=== PATIENT | female | born 1975 ===

== ENCOUNTER 2020-08-05 10:11 | Outpatient (REF) | payer OTHER, SELFPAY | END 2020-08-05 10:12 | disposition home or self-care (01) | LOC: HO.MDS 10:11 | PROVIDERS: Visit Provider Internal Medicine Pulmonary Disease | DX: J45.50 Severe persistent asthma, uncomplicated (principal) | CPT/HCPCS: 96372; J0517 ==

== ENCOUNTER → 2020-08-30 10:07 | Outpatient (BNVA) | payer OTHER, SELFPAY | PROVIDERS: Visit Provider Internal Medicine Pulmonary Disease | DX: Z76.89 Persons encountering health services in other specified circumstances (principal) ==

== ENCOUNTER 2020-09-30 14:12 | Outpatient (REF) | payer OTHER, SELFPAY | END 2020-09-30 14:13 | disposition home or self-care (01) | LOC: HO.MDS 14:12 | PROVIDERS: Visit Provider Internal Medicine Pulmonary Disease | DX: J45.50 Severe persistent asthma, uncomplicated (principal) | CPT/HCPCS: 96372; J0517 ==

== ENCOUNTER 2020-10-07 12:45 | Outpatient (REF) | payer OTHER, SELFPAY ==
--- NOTE | 2020-10-07 12:50 | MM_ITS ---
EXAMINATION: MM SCREENING DIGITAL BREAST TOMOSYNTHESIS, BILATERAL CLINICAL INFORMATION: Screening. Asymptomatic. The lifetime risk of breast cancer based on the Tyrer-Cuzick Model is 8%. COMPARISON: Mammography: 10/02/2019, 09/26/2018; outside exam 09/06/2018 and 09/04/2017 ([place]). TECHNIQUE: Digital breast tomosynthesis is performed in both the craniocaudal and mediolateral oblique views along with computer-aided detection (CAD). Synthesized 2D images are generated from the tomosynthesis. FINDINGS: There are scattered areas of fibroglandular density (ACR BI-RADS breast composition Category b). There are no significant masses, abnormal calcifications, or other abnormalities. Parenchymal pattern is similar to prior studies. No developing density. No significant changes. MM/MM tomosynthesis screening BI IMPRESSION: No mammographic evidence of malignancy. ASSESSMENT: BI-RADS 1: Negative RECOMMENDATION: Routine annual mammography screening. This patient's information was entered into a reminder system with a target due date for their next mammogram.
== END 2020-10-07 12:46 | disposition home or self-care (01) ==
LOC: HO.MAMMO 12:45
PROVIDERS: PCP Internal Medicine; Visit Provider Internal Medicine
DX: Z12.31 Encounter for screening mammogram for malignant neoplasm of breast (principal)
CPT/HCPCS: 77063; 77067

== ENCOUNTER → 2020-11-09 14:13 | Outpatient (BNVA) | payer OTHER, SELFPAY | PROVIDERS: Visit Provider Advanced Practice Midwife ==

== ENCOUNTER 2020-11-25 10:00 | Outpatient (REF) | payer OTHER, SELFPAY | END 2020-11-25 10:01 | disposition home or self-care (01) | LOC: HO.MDS 10:00 | PROVIDERS: Visit Provider Internal Medicine Pulmonary Disease | DX: J45.50 Severe persistent asthma, uncomplicated (principal) | CPT/HCPCS: 96372; J0517 ==

== ENCOUNTER 2021-01-21 08:16 | Outpatient (REF) | payer OTHER, SELFPAY | END 2021-01-21 08:17 | disposition home or self-care (01) | LOC: HO.MDS 08:16 | PROVIDERS: Visit Provider Internal Medicine Pulmonary Disease | DX: J45.50 Severe persistent asthma, uncomplicated (principal) | CPT/HCPCS: 96372; J0517 ==

== ENCOUNTER → 2021-01-27 10:31 | Outpatient (BNVA) | payer OTHER, SELFPAY | PROVIDERS: PCP Internal Medicine; Visit Provider Internal Medicine Pulmonary Disease | DX: J45.50 Severe persistent asthma, uncomplicated (principal); Z91.09 Other allergy status, other than to drugs and biological substances | CPT/HCPCS: 99212 ==

== ENCOUNTER 2021-03-16 08:12 | Outpatient (REF) | payer OTHER, SELFPAY | END 2021-03-16 08:13 | disposition home or self-care (01) | LOC: HO.MDS 08:12 | PROVIDERS: PCP Internal Medicine; Visit Provider Internal Medicine Pulmonary Disease | DX: J45.909 Unspecified asthma, uncomplicated (principal) | CPT/HCPCS: 96372; J2357 ==

== ENCOUNTER 2021-03-30 10:21 | Outpatient (REF) | payer OTHER, SELFPAY | END 2021-03-30 10:22 | disposition home or self-care (01) | LOC: HO.MDS 10:21 | PROVIDERS: PCP Internal Medicine; Visit Provider Internal Medicine Pulmonary Disease | DX: J45.50 Severe persistent asthma, uncomplicated (principal) | CPT/HCPCS: 96372; J2357 ==

== ENCOUNTER 2021-04-13 10:40 | Outpatient (REF) | payer OTHER, SELFPAY | END 2021-04-13 10:41 | disposition home or self-care (01) | LOC: HO.MDS 10:40 | PROVIDERS: PCP Internal Medicine; Visit Provider Internal Medicine Pulmonary Disease | DX: J45.50 Severe persistent asthma, uncomplicated (principal) | CPT/HCPCS: 96372; J2357 ==

== ENCOUNTER 2021-04-28 11:12 | Outpatient (REF) | payer OTHER, SELFPAY | END 2021-04-28 11:13 | disposition home or self-care (01) | LOC: HO.MDS 11:12 | PROVIDERS: PCP Internal Medicine; Visit Provider Internal Medicine Pulmonary Disease | DX: J45.50 Severe persistent asthma, uncomplicated (principal) | CPT/HCPCS: 96372; J2357 ==

== ENCOUNTER → 2021-05-06 10:34 | Outpatient (BNVA) | payer OTHER, SELFPAY | PROVIDERS: PCP Internal Medicine; Visit Provider Internal Medicine Pulmonary Disease | DX: J45.50 Severe persistent asthma, uncomplicated (principal); Z91.09 Other allergy status, other than to drugs and biological substances | CPT/HCPCS: 99212 ==

== ENCOUNTER 2021-05-18 11:11 | Outpatient (REF) | payer OTHER, SELFPAY | END 2021-05-18 11:12 | disposition home or self-care (01) | LOC: HO.MDS 11:11 | PROVIDERS: PCP Internal Medicine; Visit Provider Internal Medicine Pulmonary Disease | DX: J45.50 Severe persistent asthma, uncomplicated (principal) | CPT/HCPCS: 96372; J2357 ==

== ENCOUNTER 2021-06-01 09:40 | Outpatient (REF) | payer OTHER, SELFPAY | END 2021-06-01 09:41 | disposition home or self-care (01) | LOC: HO.MDS 09:40 | PROVIDERS: PCP Internal Medicine; Visit Provider Internal Medicine Pulmonary Disease | DX: J45.50 Severe persistent asthma, uncomplicated (principal) | CPT/HCPCS: 96372; J2357 ==

== ENCOUNTER 2021-06-16 09:43 | Outpatient (REF) | payer OTHER, SELFPAY | END 2021-06-16 09:44 | disposition home or self-care (01) | LOC: HO.MDS 09:43 | PROVIDERS: PCP Internal Medicine; Visit Provider Internal Medicine Pulmonary Disease | DX: J45.50 Severe persistent asthma, uncomplicated (principal) | CPT/HCPCS: 96372; J2357 ==

== ENCOUNTER 2021-06-30 09:34 | Outpatient (REF) | payer OTHER, SELFPAY | END 2021-06-30 09:35 | disposition home or self-care (01) | LOC: HO.MDS 09:34 | PROVIDERS: PCP Internal Medicine; Visit Provider Internal Medicine Pulmonary Disease | DX: J45.50 Severe persistent asthma, uncomplicated (principal) | CPT/HCPCS: 96372; J2357 ==

== ENCOUNTER 2021-07-14 09:44 | Outpatient (REF) | payer OTHER, SELFPAY | END 2021-07-14 09:45 | disposition home or self-care (01) | LOC: HO.MDS 09:44 | PROVIDERS: Visit Provider Internal Medicine Pulmonary Disease | DX: J45.50 Severe persistent asthma, uncomplicated (principal) | CPT/HCPCS: 96372; J2357 ==

== ENCOUNTER 2021-07-28 10:02 | Outpatient (REF) | payer OTHER, SELFPAY | END 2021-07-28 10:03 | disposition home or self-care (01) | LOC: HO.MDS 10:02 | PROVIDERS: PCP Internal Medicine; Visit Provider Internal Medicine Pulmonary Disease | DX: J45.50 Severe persistent asthma, uncomplicated (principal) | CPT/HCPCS: 96372; J2357 ==

== ENCOUNTER → 2021-08-04 09:00 | Outpatient (BNVA) | payer OTHER, SELFPAY | PROVIDERS: PCP Internal Medicine; Visit Provider Internal Medicine Pulmonary Disease | DX: J45.50 Severe persistent asthma, uncomplicated (principal); Z91.09 Other allergy status, other than to drugs and biological substances | CPT/HCPCS: 99212 ==

== ENCOUNTER 2021-08-11 09:59 | Outpatient (REF) | payer OTHER, SELFPAY | END 2021-08-11 10:00 | disposition home or self-care (01) | LOC: HO.MDS 09:59 | PROVIDERS: PCP Internal Medicine; Visit Provider Internal Medicine Pulmonary Disease | DX: J45.50 Severe persistent asthma, uncomplicated (principal) | CPT/HCPCS: 96372; J2357 ==

== ENCOUNTER 2021-08-25 10:06 | Outpatient (REF) | payer OTHER, SELFPAY | END 2021-08-25 10:07 | disposition home or self-care (01) | LOC: HO.MDS 10:06 | PROVIDERS: PCP Internal Medicine; Visit Provider Internal Medicine Pulmonary Disease | DX: J45.50 Severe persistent asthma, uncomplicated (principal) | CPT/HCPCS: 96372; J2357 ==

== ENCOUNTER → 2021-09-07 09:19 | Outpatient (BNVA) | payer OTHER, SELFPAY | PROVIDERS: PCP Internal Medicine; Visit Provider Internal Medicine Pulmonary Disease | DX: J45.50 Severe persistent asthma, uncomplicated (principal); Z91.09 Other allergy status, other than to drugs and biological substances | CPT/HCPCS: 99212 ==

== ENCOUNTER 2021-09-08 10:15 | Outpatient (REF) | payer OTHER, SELFPAY | END 2021-09-08 10:16 | disposition home or self-care (01) | LOC: HO.MDS 10:15 | PROVIDERS: Visit Provider Internal Medicine Pulmonary Disease | DX: J45.50 Severe persistent asthma, uncomplicated (principal) | CPT/HCPCS: 96372; J2357 ==

== ENCOUNTER 2021-09-22 09:42 | Outpatient (REF) | payer OTHER, SELFPAY | END 2021-09-22 09:43 | disposition home or self-care (01) | LOC: HO.MDS 09:42 | PROVIDERS: PCP Internal Medicine; Visit Provider Internal Medicine Pulmonary Disease | DX: J45.50 Severe persistent asthma, uncomplicated (principal) | CPT/HCPCS: 96372; J2357 ==

== ENCOUNTER 2021-10-06 09:09 | Outpatient (REF) | payer OTHER, SELFPAY | END 2021-10-06 09:10 | disposition home or self-care (01) | LOC: HO.MDS 09:09 | PROVIDERS: PCP Internal Medicine; Visit Provider Internal Medicine Pulmonary Disease | DX: J45.50 Severe persistent asthma, uncomplicated (principal) | CPT/HCPCS: 96372; J2357 ==

== ENCOUNTER 2021-10-20 09:44 | Outpatient (REF) | payer OTHER, SELFPAY | END 2021-10-20 09:45 | disposition home or self-care (01) | LOC: HO.MDS 09:44 | PROVIDERS: PCP Internal Medicine; Visit Provider Internal Medicine Pulmonary Disease | DX: J45.50 Severe persistent asthma, uncomplicated (principal) | CPT/HCPCS: 96372; J2357 ==

== ENCOUNTER 2021-10-27 11:45 | Outpatient (REF) | payer OTHER, SELFPAY ==
[2021-11-01 16:07] LABS: CT PCR NOT DETECTED (Not Detect.)
[2021-11-01 16:08] LABS: NG PCR NOT DETECTED (Not Detect.)
[2021-11-04 04:22] LABS: HPV mRNA E6/E7 rflx Not Detected (Not Detected)
== END 2021-10-27 11:46 | disposition home or self-care (01) ==
LOC: HO.LAB 11:45
PROVIDERS: Visit Provider Advanced Practice Midwife
DX: Z12.4 Encounter for screening for malignant neoplasm of cervix (principal); Z11.51 Encounter for screening for human papillomavirus (HPV); E66.9 Obesity, unspecified; R10.2 Pelvic and perineal pain; F17.200 Nicotine dependence, unspecified, uncomplicated; Z78.0 Asymptomatic menopausal state
CPT/HCPCS: 87491; 87591; 87624; 88142

== ENCOUNTER 2021-11-01 11:42 | Outpatient (REF) | payer OTHER, SELFPAY ==
--- NOTE | ~2021-11-01 | MM_ITS ---
EXAMINATION: MM SCREENING DIGITAL BREAST TOMOSYNTHESIS, BILATERAL CLINICAL INFORMATION: Screening. Asymptomatic. The lifetime risk of breast cancer based on the Tyrer-Cuzick Model is 9%. COMPARISON: Mammography: 10/07/2020, 10/02/2019, outside exams 09/26/2018, 09/06/2018, 09/04/2017 ([place]). TECHNIQUE: Digital breast tomosynthesis is performed in both the craniocaudal and mediolateral oblique views along with computer-aided detection (CAD). Synthesized 2D images are generated from the tomosynthesis. FINDINGS: There are scattered areas of fibroglandular density (ACR BI-RADS breast composition Category b). Parenchymal pattern is similar to prior studies. There is no architectural change or significant mass or developing density. Grouped dermal calcifications are again noted posterior 6:00 left breast. The axilla are unremarkable. The skin contours are smooth. MM/MM tomosynthesis screening BI IMPRESSION: No significant changes from prior exams. ASSESSMENT: BI-RADS 2: Benign RECOMMENDATION: Routine annual mammography screening. This patient's information was entered into a reminder system with a target due date for their next mammogram.
== END 2021-11-01 11:43 | disposition home or self-care (01) ==
LOC: HO.MAMMO 11:42
PROVIDERS: PCP Internal Medicine; Visit Provider Internal Medicine
DX: Z12.31 Encounter for screening mammogram for malignant neoplasm of breast (principal)
CPT/HCPCS: 77063; 77067; 87480; 87510; 87660

== ENCOUNTER 2021-11-04 10:24 | Outpatient (REF) | payer OTHER, SELFPAY | END 2021-11-04 10:25 | disposition home or self-care (01) | LOC: HO.MDS 10:24 | PROVIDERS: Visit Provider Internal Medicine Pulmonary Disease | DX: J45.50 Severe persistent asthma, uncomplicated (principal) | CPT/HCPCS: 96372; J2357 ==

== ENCOUNTER 2021-11-24 09:36 | Outpatient (REF) | payer OTHER, SELFPAY | END 2021-11-24 09:37 | disposition home or self-care (01) | LOC: HO.MDS 09:36 | PROVIDERS: Visit Provider Internal Medicine Pulmonary Disease | DX: J45.50 Severe persistent asthma, uncomplicated (principal) | CPT/HCPCS: 96372; J2357 ==

== ENCOUNTER 2021-12-08 09:43 | Outpatient (REF) | payer OTHER, SELFPAY | END 2021-12-08 09:44 | disposition home or self-care (01) | LOC: HO.MDS 09:43 | PROVIDERS: Visit Provider Internal Medicine Pulmonary Disease | DX: J45.50 Severe persistent asthma, uncomplicated (principal) | CPT/HCPCS: 96372; J2357 ==

== ENCOUNTER 2021-12-08 13:23 | Outpatient (REF) | payer OTHER, SELFPAY ==
--- NOTE | ~2021-12-08 | US_ITS ---
EXAMINATION: US PELVIS CLINICAL INFORMATION: Pelvic pain, abnormal bleeding COMPARISON: None TECHNIQUE: Ultrasound of the pelvis is performed using both transabdominal and transvaginal transducers along with Doppler. Transvaginal imaging is performed due to inadequate visualization transabdominally. FINDINGS: UTERUS: The uterus is anteverted, anteflexed and measures 13.0 cm in length, 5.7 cm AP and 6.4 cm in transverse dimension. The double wall endometrial thickness is 0.8 mm. The uterus is smooth in contour and has normal myometrial echogenicity. No visible fibroid. There are numerous nabothian cysts in the cervix. There is no free fluid in cul-de-sac. ADNEXA: Both ovaries are not visualized. US/US pelvic and transvaginal IMPRESSION: 1. Anteverted unremarkable uterus. 2. Multiple nabothian cysts seen in the cervix.
== END 2021-12-08 13:24 | disposition home or self-care (01) ==
LOC: HO.US 13:23
PROVIDERS: Visit Provider Advanced Practice Midwife
DX: R10.2 Pelvic and perineal pain (principal); E66.9 Obesity, unspecified; F17.200 Nicotine dependence, unspecified, uncomplicated; Z80.0 Family history of malignant neoplasm of digestive organs
CPT/HCPCS: 76830; 76856

== ENCOUNTER 2021-12-22 10:10 | Outpatient (REF) | payer OTHER, SELFPAY | END 2021-12-22 10:11 | disposition home or self-care (01) | LOC: HO.MDS 10:10 | PROVIDERS: Visit Provider Internal Medicine Pulmonary Disease | DX: J45.50 Severe persistent asthma, uncomplicated (principal) | CPT/HCPCS: 96372; J2357 ==

== ENCOUNTER → 2021-12-26 10:40 | Outpatient (BNVA) | payer OTHER, SELFPAY | PROVIDERS: PCP Internal Medicine; Visit Provider Advanced Practice Midwife | DX: Z12.4 Encounter for screening for malignant neoplasm of cervix (principal); N92.4 Excessive bleeding in the premenopausal period; J45.50 Severe persistent asthma, uncomplicated; E66.9 Obesity, unspecified; Z68.41 Body mass index [BMI] 40.0-44.9, adult | CPT/HCPCS: 99212 ==

== ENCOUNTER 2022-01-05 10:05 | Outpatient (REF) | payer OTHER, SELFPAY | END 2022-01-05 10:06 | disposition home or self-care (01) | LOC: HO.MDS 10:05 | PROVIDERS: Visit Provider Internal Medicine Pulmonary Disease | DX: J45.50 Severe persistent asthma, uncomplicated (principal) | CPT/HCPCS: 96372; J2357 ==

== ENCOUNTER 2022-01-20 08:05 | Outpatient (REF) | payer OTHER, SELFPAY ==
[2022-01-20 11:10] LABS: MANUAL DIFF FLAG NO
[2022-01-20 11:33] LABS: Basophils Absolute Auto 0.1 X10*3/uL (0.0-0.2); Basophils Percent Auto 1.1 % (0-2); Eosinophils Absolute Auto 0.4 X10*3/uL (0.0-0.4); Eosinophils Percent Auto 5.5 % (0-4); Hematocrit 36.4 % (37.0-47.0); Hemoglobin 10.7 g/dl (12.0-16.0); Imm Gran Abs Auto 0.03 X10*3/uL (0.00-0.03); Imm Gran Pct Auto 0.5 % (0.0-0.4); Lymphocytes Absolute Auto 1.6 X10*3/uL (1.2-4.9); Lymphocytes Percent Auto 24.8 % (20-40); Mean Corpuscular HGB Conc 29.4 g/dl (31.0-35.0); Mean Corpuscular Hemoglobin 24.5 pg (27.0-33.0); Mean Corpuscular Volume 83.3 fL (80.0-98.0); Monocytes Absolute Auto 0.4 X10*3/uL (0.1-1.2); Monocytes Percent Auto 6.1 % (2-11); Platelet Count 518 X10*3/uL (160-400); Red Blood Count 4.37 X10*6/uL (4.20-5.50); Red Cell Distribution Width 17.5 % (11.0-16.0); White Blood Count 6.5 X10*3/uL (4.8-10.8)
[2022-01-20 12:02] LABS: Alanine Aminotransferase 20 U/L (0-31); Alkaline Phosphatase 109 U/L (39-117); Anion Gap 11 (12-20); Aspartate Amino Transferase 15 U/L (5-31); Bilirubin Total 0.3 mg/dL (0.0-1.0); Blood Urea Nitrogen 11 mg/dL (9-16); Calcium 9.3 mg/dL (8.4-10.2); Carbon Dioxide 24 mmol/L (22-29); Chloride 105 mmol/L (96-108); Cholesterol 188 mg/dL; Estimated Glomerular Filt Rate > 60; Glucose Fasting 85 mg/dL (60-99); HDL Cholesterol 50 mg/dL; LDL Cholesterol Calculated 123 mg/dl; Potassium 4.3 mmol/L (3.3-5.1); Sodium 136 mmol/L (135-145); Total Protein 6.8 g/dL (6.5-8.0); Triglycerides 78 mg/dL
[2022-01-20 12:08] LABS: Ferritin 6 ng/mL (10-250); TSH reflex Free T4 0.68 uIU/mL (0.32-4.0)
[2022-01-20 12:34] LABS: Folate 11.6 ng/mL (> or = 4.0); Vitamin B12 244 pg/mL (200-900)
[2022-01-25 11:06] LABS: Vitamin D 25-OH, D2 <4 ng/mL; Vitamin D 25-OH, D3 8 ng/mL; Vitamin D 25-OH, Total 8 ng/mL (30-100)
== END 2022-01-20 08:06 | disposition home or self-care (01) ==
LOC: HO.HMGCLDS 08:05
PROVIDERS: Visit Provider Internal Medicine
DX: Z00.01 Encounter for general adult medical examination with abnormal findings (principal); L60.3 Nail dystrophy; R53.83 Other fatigue; E66.09 Other obesity due to excess calories; J45.50 Severe persistent asthma, uncomplicated; Z91.09 Other allergy status, other than to drugs and biological substances
CPT/HCPCS: 36415; 80053; 80061; 82306; 82607; 82728; 82746; 84443; 85025

== ENCOUNTER 2022-01-20 09:47 | Outpatient (REF) | payer OTHER, SELFPAY | END 2022-01-20 09:48 | disposition home or self-care (01) | LOC: HO.MDS 09:47 | PROVIDERS: PCP Internal Medicine; Visit Provider Internal Medicine Pulmonary Disease | DX: J45.50 Severe persistent asthma, uncomplicated (principal) | CPT/HCPCS: 96372; J2357 ==

== ENCOUNTER 2022-02-02 09:57 | Outpatient (REF) | payer OTHER, SELFPAY | END 2022-02-02 09:58 | disposition home or self-care (01) | LOC: HO.MDS 09:57 | PROVIDERS: PCP Internal Medicine; Visit Provider Internal Medicine Pulmonary Disease | DX: J45.50 Severe persistent asthma, uncomplicated (principal) | CPT/HCPCS: 96372; J2357 ==

== ENCOUNTER → 2022-02-10 11:38 | Outpatient (BNVA) | payer OTHER, SELFPAY | PROVIDERS: PCP Internal Medicine; Visit Provider Internal Medicine Pulmonary Disease | DX: Z13.89 Encounter for screening for other disorder (principal) ==

== ENCOUNTER 2022-03-01 | Outpatient (REF) | payer OTHER, SELFPAY ==
[2022-03-03 09:50] LABS: BV Int Neg Control Negative (Negative); BV Int Pos Control Positive (Positive)
== END 2022-03-01 00:01 | disposition home or self-care (01) ==
LOC: HO.LNP
PROVIDERS: Visit Provider Internal Medicine
DX: N89.8 Other specified noninflammatory disorders of vagina (principal)
CPT/HCPCS: 87480; 87510; 87660

== ENCOUNTER 2022-03-02 11:33 | Outpatient (REF) | payer OTHER, SELFPAY | END 2022-03-02 11:34 | disposition home or self-care (01) | LOC: HO.LNP 11:33 | PROVIDERS: Visit Provider Internal Medicine | DX: Z13.89 Encounter for screening for other disorder (principal) ==

== ENCOUNTER 2022-03-10 07:25 | Outpatient (REF) | payer OTHER, SELFPAY ==
--- NOTE | ~2022-03-10 | XR_ITS ---
EXAMINATION: KNEE X-RAY CLINICAL INFORMATION: Pain COMPARISON: None TECHNIQUE: Standing AP view of both knees and lateral and sunrise view of the left knee FINDINGS: Left: Bone alignment is normal. There are surgical changes from ACL repair. There is degenerative meniscal calcification. There are small osteophytes at the patellofemoral and femoral tibial joints. There is a small joint effusion. Standing AP view of the right knee is unremarkable. XR/XR knee LT 2V IMPRESSION: Left knee: Post ACL repair. Mild arthritis and small joint effusion. Unremarkable right knee
--- NOTE | ~2022-03-10 | XR_ITS ---
EXAMINATION: KNEE X-RAY CLINICAL INFORMATION: Pain COMPARISON: None TECHNIQUE: Standing AP view of both knees and lateral and sunrise view of the left knee FINDINGS: Left: Bone alignment is normal. There are surgical changes from ACL repair. There is degenerative meniscal calcification. There are small osteophytes at the patellofemoral and femoral tibial joints. There is a small joint effusion. Standing AP view of the right knee is unremarkable. XR/XR knee standing BI IMPRESSION: Left knee: Post ACL repair. Mild arthritis and small joint effusion. Unremarkable right knee
== END 2022-03-10 07:26 | disposition home or self-care (01) ==
LOC: HO.HOSX 07:25
PROVIDERS: Visit Provider Physician Assistant
DX: M17.12 Unilateral primary osteoarthritis, left knee (principal); M25.561 Pain in right knee
CPT/HCPCS: 20610; 73560; 73565; 99202; J1040

== ENCOUNTER → 2022-03-13 11:05 | Outpatient (BNVA) | payer OTHER, SELFPAY | PROVIDERS: PCP Internal Medicine; Visit Provider Nurse Practitioner Family | DX: Z01.818 Encounter for other preprocedural examination (principal); J45.50 Severe persistent asthma, uncomplicated | CPT/HCPCS: 99202 ==

== ENCOUNTER 2022-04-03 14:34 | Outpatient (REF) | payer OTHER, SELFPAY | END 2022-04-03 14:35 | disposition home or self-care (01) | LOC: HO.MDS 14:34 | PROVIDERS: Visit Provider Internal Medicine Pulmonary Disease | DX: J45.50 Severe persistent asthma, uncomplicated (principal) | CPT/HCPCS: 96372; J2357 ==

== ENCOUNTER 2022-04-18 11:39 | Outpatient (REF) | payer OTHER, SELFPAY | END 2022-04-18 11:40 | disposition home or self-care (01) | LOC: HO.MDS 11:39 | PROVIDERS: Visit Provider Internal Medicine Pulmonary Disease | DX: J45.50 Severe persistent asthma, uncomplicated (principal) | CPT/HCPCS: 96372; J2357 ==

== ENCOUNTER 2022-05-02 11:25 | Outpatient (REF) | payer OTHER, SELFPAY | END 2022-05-02 11:26 | disposition home or self-care (01) | LOC: HO.MDS 11:25 | PROVIDERS: Visit Provider Internal Medicine Pulmonary Disease | DX: J45.50 Severe persistent asthma, uncomplicated (principal) | CPT/HCPCS: 96372; J2357 ==

== ENCOUNTER 2022-05-16 10:33 | Outpatient (REF) | payer OTHER, SELFPAY | END 2022-05-16 10:34 | disposition home or self-care (01) | LOC: HO.MDS 10:33 | PROVIDERS: Visit Provider Internal Medicine Pulmonary Disease | DX: J45.50 Severe persistent asthma, uncomplicated (principal) | CPT/HCPCS: 96372; J2357 ==

== ENCOUNTER → 2022-05-19 10:15 | Outpatient (BNVA) | payer OTHER, SELFPAY | PROVIDERS: PCP Internal Medicine; Visit Provider Internal Medicine Pulmonary Disease | DX: J45.50 Severe persistent asthma, uncomplicated (principal); F17.210 Nicotine dependence, cigarettes, uncomplicated; Z91.09 Other allergy status, other than to drugs and biological substances | CPT/HCPCS: 99212 ==

== ENCOUNTER 2022-05-22 15:27 | Outpatient (REF) | payer OTHER, SELFPAY ==
[2022-05-22 16:42] LABS: MANUAL DIFF FLAG NO
[2022-05-22 16:53] LABS: Basophils Absolute Auto 0.1 X10*3/uL (0.0-0.2); Basophils Percent Auto 0.6 % (0-2); Eosinophils Absolute Auto 0.2 X10*3/uL (0.0-0.4); Eosinophils Percent Auto 2.1 % (0-4); Hematocrit 40.3 % (37.0-47.0); Hemoglobin 12.7 g/dl (12.0-16.0); Imm Gran Abs Auto 0.02 X10*3/uL (0.00-0.03); Imm Gran Pct Auto 0.2 % (0.0-0.4); Lymphocytes Absolute Auto 1.7 X10*3/uL (1.2-4.9); Lymphocytes Percent Auto 20.1 % (20-40); Mean Corpuscular HGB Conc 31.5 g/dl (31.0-35.0); Mean Corpuscular Hemoglobin 27.4 pg (27.0-33.0); Mean Platelet Volume 9.3 fL (9.4-12.3); Monocytes Absolute Auto 0.4 X10*3/uL (0.1-1.2); Monocytes Percent Auto 4.7 % (2-11); Neutrophils Percent Auto 72.3 % (45-73); Platelet Count 398 X10*3/uL (160-400); Red Blood Count 4.63 X10*6/uL (4.20-5.50); Red Cell Distribution Width 15.7 % (11.0-16.0); White Blood Count 8.2 X10*3/uL (4.8-10.8)
[2022-05-22 18:10] LABS: Ferritin 9 ng/mL (10-250)
[2022-05-23 05:57] LABS: Vitamin B12 474 pg/mL (200-900)
[2022-05-25 16:17] LABS: Vitamin D 25-OH, D2 <4 ng/mL; Vitamin D 25-OH, D3 16 ng/mL; Vitamin D 25-OH, Total 16 ng/mL (30-100)
== END 2022-05-22 15:28 | disposition home or self-care (01) ==
LOC: HO.HMGCLDS 15:27
PROVIDERS: PCP Internal Medicine; Visit Provider Internal Medicine
DX: D50.9 Iron deficiency anemia, unspecified (principal); E53.8 Deficiency of other specified B group vitamins; E55.9 Vitamin D deficiency, unspecified; M25.562 Pain in left knee; N92.0 Excessive and frequent menstruation with regular cycle
CPT/HCPCS: 36415; 82306; 82607; 82728; 85025

== ENCOUNTER 2022-05-31 10:23 | Outpatient (REF) | payer OTHER, SELFPAY | END 2022-05-31 10:24 | disposition home or self-care (01) | LOC: HO.MDS 10:23 | PROVIDERS: Visit Provider Internal Medicine Pulmonary Disease | DX: J45.50 Severe persistent asthma, uncomplicated (principal) | CPT/HCPCS: 96372; J2357 ==

== ENCOUNTER 2022-06-14 10:46 | Outpatient (REF) | payer OTHER, SELFPAY | END 2022-06-14 10:47 | disposition home or self-care (01) | LOC: HO.MDS 10:46 | PROVIDERS: PCP Internal Medicine; Visit Provider Internal Medicine Pulmonary Disease | DX: J45.50 Severe persistent asthma, uncomplicated (principal) | CPT/HCPCS: 96372; J2357 ==

== ENCOUNTER 2022-06-28 10:43 | Outpatient (REF) | payer OTHER, SELFPAY | END 2022-06-28 10:44 | disposition home or self-care (01) | LOC: HO.MDS 10:43 | PROVIDERS: Visit Provider Internal Medicine Pulmonary Disease | DX: J45.50 Severe persistent asthma, uncomplicated (principal) | CPT/HCPCS: 96372; J2357 ==

== ENCOUNTER 2022-07-13 11:06 | Outpatient (REF) | payer OTHER, SELFPAY | END 2022-07-13 11:07 | disposition home or self-care (01) | LOC: HO.MDS 11:06 | PROVIDERS: Visit Provider Internal Medicine Pulmonary Disease | DX: J45.50 Severe persistent asthma, uncomplicated (principal) | CPT/HCPCS: 96372; J2357 ==

== ENCOUNTER 2022-07-27 10:45 | Outpatient (REF) | payer OTHER, SELFPAY | END 2022-07-27 10:46 | disposition home or self-care (01) | LOC: HO.MDS 10:45 | PROVIDERS: Visit Provider Internal Medicine Pulmonary Disease | DX: J45.50 Severe persistent asthma, uncomplicated (principal) | CPT/HCPCS: 96372; J2357 ==

== ENCOUNTER 2022-08-21 12:17 | Outpatient (REF) | payer OTHER, SELFPAY | END 2022-08-21 12:18 | disposition home or self-care (01) | LOC: HO.MDS 12:17 | PROVIDERS: Visit Provider Internal Medicine Pulmonary Disease | DX: J45.50 Severe persistent asthma, uncomplicated (principal) | CPT/HCPCS: 96372; J2357 ==

== ENCOUNTER 2022-09-01 17:35 | Outpatient (REF) | payer OTHER, SELFPAY ==
[2022-09-02 12:27] LABS: BV Int Neg Control Negative (Negative); BV Int Pos Control Positive (Positive)
== END 2022-09-01 17:36 | disposition home or self-care (01) ==
LOC: HO.LNP 17:35
PROVIDERS: Visit Provider Advanced Practice Midwife
DX: Z20.2 Contact with and (suspected) exposure to infections with a predominantly sexual mode of transmission (principal)
CPT/HCPCS: 87480; 87510; 87660

== ENCOUNTER 2022-09-05 10:32 | Outpatient (REF) | payer OTHER, SELFPAY | END 2022-09-05 10:33 | disposition home or self-care (01) | LOC: HO.MDS 10:32 | PROVIDERS: PCP Internal Medicine; Visit Provider Internal Medicine Pulmonary Disease | DX: J45.50 Severe persistent asthma, uncomplicated (principal) | CPT/HCPCS: 96372; J2357 ==

== ENCOUNTER 2022-09-19 10:52 | Outpatient (REF) | payer OTHER, SELFPAY | END 2022-09-19 10:53 | disposition home or self-care (01) | LOC: HO.MDS 10:52 | PROVIDERS: Visit Provider Internal Medicine Pulmonary Disease | DX: J45.50 Severe persistent asthma, uncomplicated (principal) | CPT/HCPCS: 96372; J2357 ==

== ENCOUNTER → 2022-09-27 10:32 | Outpatient (BNVA) | payer OTHER, SELFPAY | PROVIDERS: PCP Internal Medicine; Visit Provider Internal Medicine Pulmonary Disease | DX: J45.50 Severe persistent asthma, uncomplicated (principal); Z91.09 Other allergy status, other than to drugs and biological substances | CPT/HCPCS: 99212 ==

== ENCOUNTER 2022-10-05 11:10 | Outpatient (REF) | payer OTHER, SELFPAY | END 2022-10-05 11:11 | disposition home or self-care (01) | LOC: HO.MDS 11:10 | PROVIDERS: Visit Provider Internal Medicine Pulmonary Disease | DX: J45.50 Severe persistent asthma, uncomplicated (principal) | CPT/HCPCS: 96372; J2357 ==

== ENCOUNTER 2022-10-11 13:29 | Outpatient (REF) | payer OTHER, SELFPAY ==
[2022-10-11 16:42] LABS: MANUAL DIFF FLAG NO
[2022-10-11 16:46] LABS: Basophils Percent Auto 0.5 % (0-2); Eosinophils Absolute Auto 0.2 X10*3/uL (0.0-0.4); Eosinophils Percent Auto 2.5 % (0-4); Hematocrit 37.2 % (37.0-47.0); Hemoglobin 12.1 g/dl (12.0-16.0); Imm Gran Abs Auto 0.03 X10*3/uL (0.00-0.03); Imm Gran Pct Auto 0.4 % (0.0-0.4); Lymphocytes Absolute Auto 1.5 X10*3/uL (1.2-4.9); Lymphocytes Percent Auto 17.8 % (20-40); Mean Corpuscular HGB Conc 32.5 g/dl (31.0-35.0); Mean Corpuscular Hemoglobin 30.3 pg (27.0-33.0); Mean Platelet Volume 9.5 fL (9.4-12.3); Monocytes Absolute Auto 0.6 X10*3/uL (0.1-1.2); Monocytes Percent Auto 6.5 % (2-11); Neutrophils Absolute Auto 6.1 x10*3/uL (2.0-8.3); Neutrophils Percent Auto 72.3 % (45-73); Platelet Count 431 X10*3/uL (160-400); Red Cell Distribution Width 14.1 % (11.0-16.0); White Blood Count 8.4 X10*3/uL (4.8-10.8)
[2022-10-11 17:28] LABS: Alanine Aminotransferase 31 U/L (0-31); Albumin Level 4.1 g/dL (3.5-5.0); Alkaline Phosphatase 120 U/L (39-117); Anion Gap 11 (12-20); Aspartate Amino Transferase 19 U/L (5-31); Bilirubin Total 0.2 mg/dL (0.0-1.0); Blood Urea Nitrogen 9 mg/dL (9-16); Calcium 9.4 mg/dL (8.4-10.2); Carbon Dioxide 26 mmol/L (22-29); Chloride 107 mmol/L (96-108); Estimated Glomerular Filt Rate > 60; Glucose Random 94 mg/dL (60-115); Potassium 3.9 mmol/L (3.3-5.1); Sodium 140 mmol/L (135-145); Total Protein 6.9 g/dL (6.5-8.0)
[2022-10-11 17:44] LABS: Ferritin 12 ng/mL (10-250); TSH reflex Free T4 0.63 uIU/mL (0.32-4.0)
[2022-10-11 17:50] LABS: Vitamin B12 448 pg/mL (200-900)
[2022-10-15 15:53] LABS: Vitamin D 25-OH, D2 <4 ng/mL; Vitamin D 25-OH, D3 13 ng/mL; Vitamin D 25-OH, Total 13 ng/mL (30-100)
== END 2022-10-11 13:30 | disposition home or self-care (01) ==
LOC: HO.HMGCLDS 13:29
PROVIDERS: PCP Internal Medicine; Visit Provider Internal Medicine
DX: D50.9 Iron deficiency anemia, unspecified (principal); E53.8 Deficiency of other specified B group vitamins; E55.9 Vitamin D deficiency, unspecified; J45.50 Severe persistent asthma, uncomplicated
CPT/HCPCS: 36415; 80053; 82306; 82607; 82728; 84443; 85025

== ENCOUNTER 2022-10-19 11:38 | Outpatient (REF) | payer OTHER, SELFPAY | END 2022-10-19 11:39 | disposition home or self-care (01) | LOC: HO.MDS 11:38 | PROVIDERS: Visit Provider Internal Medicine Pulmonary Disease | DX: J45.50 Severe persistent asthma, uncomplicated (principal) | CPT/HCPCS: 96372; J2357 ==

== ENCOUNTER 2022-11-02 12:00 | Outpatient (REF) | payer OTHER, SELFPAY | END 2022-11-02 12:01 | disposition home or self-care (01) | LOC: HO.MDS 12:00 | PROVIDERS: Visit Provider Internal Medicine Pulmonary Disease | DX: J45.50 Severe persistent asthma, uncomplicated (principal) | CPT/HCPCS: 96372; J2357 ==

== ENCOUNTER 2022-11-06 14:24 | Outpatient (REF) | payer OTHER, SELFPAY | END 2022-11-06 14:25 | disposition home or self-care (01) | LOC: HO.LNP 14:24 | PROVIDERS: PCP Internal Medicine; Visit Provider Advanced Practice Midwife | DX: N93.9 Abnormal uterine and vaginal bleeding, unspecified (principal); N92.4 Excessive bleeding in the premenopausal period; E66.01 Morbid (severe) obesity due to excess calories; J45.50 Severe persistent asthma, uncomplicated; Z12.4 Encounter for screening for malignant neoplasm of cervix; Z79.899 Other long term (current) drug therapy | CPT/HCPCS: 58100; 88305; 99212 ==

== ENCOUNTER 2022-11-16 11:14 | Outpatient (REF) | payer OTHER, SELFPAY | END 2022-11-16 11:15 | disposition home or self-care (01) | LOC: HO.MDS 11:14 | PROVIDERS: Visit Provider Internal Medicine Pulmonary Disease | DX: J45.50 Severe persistent asthma, uncomplicated (principal) | CPT/HCPCS: 96372; J2357 ==

== ENCOUNTER 2022-11-20 15:32 | Outpatient (REF) | payer OTHER, SELFPAY ==
--- NOTE | ~2022-11-20 | US_ITS ---
EXAMINATION: US PELVIS CLINICAL INFORMATION: Morbid/severe obesity due to excess calories. COMPARISON: None TECHNIQUE: Ultrasound of the pelvis is performed using both transabdominal and transvaginal transducers along with Doppler. Transvaginal imaging is performed due to inadequate visualization transabdominally. FINDINGS: Uterus: The uterus is anteverted, anteflexed and measures 12.26 cm in length, 6.10 cm in AP and 6.8 cm in transverse dimension. The double wall endometrial thickness is 1.85 cm. The uterus is smooth in contour and has normal myometrial echogenicity. No visible fibroid. There are small nabothian cysts in the cervix. Adnexa: Both ovaries are visualized. There is normal color flow to the adnexa. There is no ovarian torsion. There is no pelvic ascites or fluid collection. Right ovary measures 3.3 x 2.4 x 3.0 cm and volume 12.4 mL. There is an anechoic cyst measuring 1.9 x 1.5 x 1.5 cm. Previously, it measured 2.3 x 1.6 x 2.2 cm. Left ovary measures 4.3 x 2.4 x 4.0 cm and volume 21.6 mL. There is anechoic cyst measuring 4.2 x 2.5 x 2.7 cm. Previously, it measured 2.7 x 1.7 x 2.6 cm. There is no free fluid in the cul-de-sac. US/US pelvic and transvaginal IMPRESSION: 1. Bilateral ovarian cysts. 2. Small nabothian cysts in the cervix. 3. The uterus is unremarkable. 4. Thickened endometrium measuring 1.85 cm. Recommend clinical correlation.
== END 2022-11-20 15:33 | disposition home or self-care (01) ==
LOC: HO.HMGCX 15:32
PROVIDERS: PCP Internal Medicine; Visit Provider Advanced Practice Midwife
DX: N92.4 Excessive bleeding in the premenopausal period (principal); E66.01 Morbid (severe) obesity due to excess calories; J45.50 Severe persistent asthma, uncomplicated
CPT/HCPCS: 76830; 76856

== ENCOUNTER 2022-11-22 11:35 | Outpatient (REF) | payer OTHER, SELFPAY ==
[2022-11-23 07:15] LABS: CT PCR NOT DETECTED (Not Detect.); NG PCR NOT DETECTED (Not Detect.)
[2022-11-23 09:01] LABS: BV Int Neg Control Negative (Negative); BV Int Pos Control Positive (Positive)
== END 2022-11-22 11:36 | disposition home or self-care (01) ==
LOC: HO.LNP 11:35
PROVIDERS: PCP Internal Medicine; Visit Provider Advanced Practice Midwife
DX: N92.4 Excessive bleeding in the premenopausal period (principal); N89.8 Other specified noninflammatory disorders of vagina; N93.9 Abnormal uterine and vaginal bleeding, unspecified; Z32.02 Encounter for pregnancy test, result negative
CPT/HCPCS: 0353U; 58100; 81025; 87480; 87510; 87660; 88305; 88341; 88342

== ENCOUNTER 2022-11-28 07:13 | Day surgery (SDC) | payer OTHER, SELFPAY ==
[2022-10-02 15:56] VITALS: BMI 47.5
--- NOTE | 2022-11-27 13:21 | HO.ANESPROP2 ---
Documented by User: Jacque Baptiste NP 11/27/22 13:24 HPI - Anesthesia Eval Consult details Narrative: 47yo F for Colonoscopy PMFSH Active Problems Active Problems: All Active Problems (Updated 11/22/22 @ 20:23 by Neida Simpson RN) Severe persistent asthma (Acute) Environmental allergies (Acute) Well woman exam with routine gynecological exam (Acute) Smoking (Acute) FH: colon cancer in first degree relative <60 years old (Acute) Obesity (Acute) Pelvic pain (Acute) Cervical cancer screening (Acute) Menorrhagia, premenopausal (Acute) Encounter for general adult medical examination with abnormal findings (Acute) Obesity due to excess calories (Acute) Tired (Acute) Brittle nails (Acute) Bowel habit changes (Acute) Anemia, iron deficiency (Acute) Heavy menstrual bleeding (Acute) B12 deficiency (Acute) Knee pain, left (Acute) Vitamin D deficiency (Acute) Foul smelling vaginal discharge (Acute) Frequency of urination (Acute) Edema of both ankles (Acute) Morbid obesity due to excess calories (Acute) Primary osteoarthritis of left knee (Acute) Bacterial vaginosis (Acute) Obesity, morbid, BMI 40.0-49.9 (Acute) Past Medical History Medical History Anemia Asthma Fatty liver Headache Hemorrhoids Hx of renal calculi Seasonal allergies Sleep apnea Vertigo Family History Family History Father Prostate cancer Mental health disorder Paternal Aunt History of breast cancer Brother Colon cancer, Onset Age: 50 Son Mental health disorder Son Mental health disorder Mother Mental health disorder Surgical History Surgical History History of bilateral tubal ligation Hx of section Hx of colonoscopy Hx of lithotripsy S/P ACL repair Social History Social History Housing: House Are you a primary hemodialysis patient care specialist to a significant other at home: No Do you presently have visiting nurse or other home services: No Alcohol intake: current Alcohol intake frequency: holidays/special occasions only Patient Tobacco Use Status: Current everyday Tobacco user Tobacco use type: Cigarette Cigarettes Per Day: 5 Years Smoked: 30 e-Cigarette/Vaping Use: Never Used Use of substances other than those prescribed or required for medical reasons: No Have you been hit, kicked, punched, or otherwise hurt by someone within the past year? 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594 kg Pertinent Lab Results Pertinent Lab Results: Laboratory Tests 10/11/22 10/11/22 13:34 13:34 WBC 8.4 Hgb 12.1 Hct 37.2 Plt Count 431 H Sodium 140 Potassium 3.9 Chloride 107 Carbon Dioxide 26 BUN 9 Creatinine 0.64 Assessment and Plan Assessment Anesthesia Assessment: Chart Reviewed Documented by User: Latha Sheth MD 11/28/22 08:19 [facility] Past Medical History Medical History Anemia Asthma Fatty liver Headache Hemorrhoids Hx of renal calculi Seasonal allergies Sleep apnea Vertigo Family History Family History Father Prostate cancer Mental health disorder Paternal Aunt History of breast cancer Brother Colon cancer, Onset Age: 50 Son Mental health disorder Son Mental health disorder Mother Mental health disorder Surgical History Surgical History History of bilateral tubal ligation Hx of section Hx of colonoscopy Hx of lithotripsy S/P ACL repair History of Problems with Anesthesia: No Social History Social History Housing: House Are you a primary hemodialysis patient care specialist to a significant other at home: No Do you presently have visiting nurse or other home services: No Alcohol intake: current Alcohol intake frequency: holidays/special occasions only Patient Tobacco Use Status: Current everyday Tobacco user Tobacco use type: Cigarette Cigarettes Per Day: 5 Years Smoked: 30 e-Cigarette/Vaping Use: Never Used Use of substances other than those prescribed or required for medical reasons: No Have you been hit, kicked, punched, or otherwise hurt by someone within the past year? 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 Gender identity: Female Cognitive needs: No Hearing needs: No Vision needs: No Meds Allergies Allergy/AdvReac Type Severity Reaction Status Date / Time No Known Allergies Allergy Verified 11/28/22 07:23 [No Known Allergies*] Home Medications Medication Instructions Recorded Confirmed Last Taken Type epinephrine 0.3 mg/0.3 mL 1 ml IM DIRECTED anaphylaxis 09/01/22 11/22/22 Unknown History injection, auto-injector montelukast 10 mg tablet 10 mg PO BEDTIME 10/02/22 11/06/22 Unknown History Exam Airway Mallampati Class: III TM Dist: >3cm Neck ROM: Full Loose/Missing/Broken Teeth: No Heart: RRR Lungs: CTA Assessment and Plan Assessment Anesthesia Assessment: Anesthesia Plan Discussed Final Anesthetic Review History of Problems with Anesthesia: No NPO: Yes ASA Class: III Final Preanesthetic Review: Meds/Allgs Chart Reviewed, Consent Obtained/Reviewed and Anes Risks/Benef Reviewed Patient Risk: Intermediate Procedure Risk: Low Anesthetic Plan Anesthetic Plan: MAC: Disposition: Standard PACU
--- NOTE | 2022-11-28 07:41 | MHC.SHP ---
Pre-Procedural Eval Section A Date of Service: 11/28/22 Section B Chief Complaint: screening Details of Present Illness: PMH: Asthma Seasonal allergies Vertigo Surgical History History of bilateral tubal ligation Hx of section S/P ACL repair Allergies: Allergies Allergy/AdvReac Type Severity Reaction Status Date / Time No Known Allergies Allergy Verified 11/28/22 07:23 [No Known Allergies*] Review of Systems Review of Systems Comment: Ten point ROS negative Exam Exam Comment: Gen appear: No acute distress HEENT: no icterus Chest: No overt resp distress Abd: soft, nontender, nondistended Psych: Stable affect, answering questions appropriately Neuro: A/Ox3 noted to move all extremities spontaneously Ext: no peripheral edema Plan Diagnosis/Plan: Unchanged I have reviewed the history and physical and performed a pertinent physical examination on my patient. No changes have occurred unless specified. Time Spent With Patient Time: Total time managing care of this patient today ____ minutes.
--- NOTE | 2022-11-28 07:42 | P.OP_ITS ---
Operative Note Operative Note Date of Service: 11/28/22 Narrative: Procedure: Colonoscopy Indication: Screening Endoscopist: Meagan Celeste MD Anesthesia Provider: Maya Mcnulyt CRNA Anesthesia type: MAC Instrument: Olympus [id number]-H190L Consent: Indication, risks vs benefits, and alternatives were discussed with the patient who gave written informed consent to proceed. EKG, pulse, pulse oximetry and blood pressure were monitored throughout the procedure. Please see anesthesia flowsheet. Procedure: The patient was brought to the procedure room and placed in the left lateral decubitus position. IV medications were administered by the anesthesia provider in attendance. A digital rectal exam was performed which was normal. The distal attachment cap was affixed to the tip of the scope and the colonoscope was then inserted through the anus and advanced through the colon to the cecum at 90 cm. Appendiceal orifice and ileocecal valve were identified. Mucosa was carefully examined under high definition white light as the instrument was slowly withdrawn in a retrograde panoramic fashion. Ascending colon was intubated twice. Retroflexion was performed in rectum. The procedure was not difficult. There were no immediate obvious complications. The quality of the prep was BBPS: 3+2+3 = adequate Withdrawal time 15 minutes. Limitations: No limitations. Findings: Mucosa: Normal to cecum. Protruding lesions: * Medium internal hemorrhoids without stigmata of recent bleeding. Impression: 1. Normal colon mucosa 2. Internal hemorrhoids Recommendations: - Repeat colonoscopy in 10 years for asymptomatic colorectal cancer screening.
[2022-11-28 07:50] VITALS: BP 131/68; PULSE 94; RESP 18; TEMP 36.6; O2SAT 96
[2022-11-28] MEDS: Lactated Ringers 1,000 ML 100 ML IVCONT (07:58)
[2022-11-28 09:05] VITALS: BP 93/52; PULSE 90; RESP 18; TEMP 36.6; O2SAT 97
[2022-11-28 09:20] VITALS: BP 110/62; PULSE 89; RESP 16; O2SAT 97
[2022-11-28 09:35] VITALS: BP 105/63; PULSE 87; RESP 16; TEMP 36.1; O2SAT 98
== END 2022-11-28 10:10 | disposition home or self-care (01) ==
LOC: HO.SSS 07:13
PROVIDERS: PCP Internal Medicine; Visit Provider Internal Medicine
PROC: 0DJD8ZZ Inspection of Lower Intestinal Tract, Via Natural or Artificial Opening Endoscopic (ICD-10-PCS; CPT 45378; principal; 2022-11-28 08:20)
DX: Z12.11 Encounter for screening for malignant neoplasm of colon (principal); K64.8 Other hemorrhoids; Z83.71 Family history of colonic polyps
CPT/HCPCS: 45378; J2370

== ENCOUNTER → 2022-11-29 11:22 | Outpatient (BNVA) | payer OTHER, SELFPAY | PROVIDERS: PCP Internal Medicine; Visit Provider Internal Medicine Pulmonary Disease | DX: N92.4 Excessive bleeding in the premenopausal period (principal); J45.50 Severe persistent asthma, uncomplicated; Z91.09 Other allergy status, other than to drugs and biological substances | CPT/HCPCS: 99212 ==

== ENCOUNTER 2022-11-30 11:15 | Outpatient (REF) | payer OTHER, SELFPAY | END 2022-11-30 11:16 | disposition home or self-care (01) | LOC: HO.MDS 11:15 | PROVIDERS: PCP Internal Medicine; Visit Provider Internal Medicine Pulmonary Disease | DX: J45.50 Severe persistent asthma, uncomplicated (principal) | CPT/HCPCS: 96372; J2357 ==

== ENCOUNTER → 2022-12-06 10:35 | Outpatient (BNVA) | payer OTHER, SELFPAY | PROVIDERS: PCP Internal Medicine; Visit Provider Obstetrics & Gynecology | DX: N93.9 Abnormal uterine and vaginal bleeding, unspecified (principal) | CPT/HCPCS: 99212 ==

== ENCOUNTER → 2022-12-12 10:42 | Outpatient (BNVA) | payer OTHER, SELFPAY | PROVIDERS: PCP Internal Medicine; Visit Provider Nurse Practitioner Family | DX: K64.8 Other hemorrhoids (principal); Z98.890 Other specified postprocedural states | CPT/HCPCS: 99212 ==

== ENCOUNTER 2022-12-14 10:33 | Outpatient (REF) | payer OTHER, SELFPAY | END 2022-12-14 10:34 | disposition home or self-care (01) | LOC: HO.MDS 10:33 | PROVIDERS: Visit Provider Internal Medicine Pulmonary Disease | DX: J45.50 Severe persistent asthma, uncomplicated (principal) | CPT/HCPCS: 96372; J2357 ==

== ENCOUNTER 2022-12-28 10:32 | Outpatient (REF) | payer OTHER, SELFPAY | END 2022-12-28 10:33 | disposition home or self-care (01) | LOC: HO.MDS 10:32 | PROVIDERS: Visit Provider Internal Medicine Pulmonary Disease | DX: J45.50 Severe persistent asthma, uncomplicated (principal) | CPT/HCPCS: 96372; J2357 ==

== ENCOUNTER 2023-01-11 10:33 | Outpatient (REF) | payer OTHER, SELFPAY | END 2023-01-11 10:34 | disposition home or self-care (01) | LOC: HO.MDS 10:33 | PROVIDERS: Visit Provider Internal Medicine Pulmonary Disease | DX: J45.50 Severe persistent asthma, uncomplicated (principal) | CPT/HCPCS: 96372; J2357 ==

== ENCOUNTER 2023-01-17 11:00 | Outpatient (REF) | payer OTHER, SELFPAY ==
--- NOTE | ~2023-01-17 | MM_ITS ---
EXAMINATION: MM SCREENING DIGITAL BREAST TOMOSYNTHESIS, BILATERAL CLINICAL INFORMATION: Screening. Asymptomatic. The lifetime risk of breast cancer based on the Tyrer-Cuzick Model is 9%. COMPARISON: Mammography: 12/30/2021, 10/07/2020, 10/02/2019 TECHNIQUE: Digital breast tomosynthesis is performed in both the craniocaudal and mediolateral oblique views along with computer-aided detection (CAD). Synthesized 2D images are generated from the tomosynthesis. FINDINGS: There are scattered areas of fibroglandular density (ACR BI-RADS breast composition Category b). There are no significant masses, abnormal calcifications, or other abnormalities. Parenchymal pattern is similar to prior studies. There is no developing density or architectural abnormality. The axilla and skin contours are unremarkable. No significant changes. MM/MM tomosynthesis screening BI IMPRESSION: No mammographic evidence of malignancy. ASSESSMENT: BI-RADS 1: Negative RECOMMENDATION: Routine annual mammography screening. This patient's information was entered into a reminder system with a target due date for their next mammogram.
== END 2023-01-17 11:01 | disposition home or self-care (01) ==
LOC: HO.MAMMO 11:00
PROVIDERS: PCP Internal Medicine; Visit Provider Obstetrics & Gynecology
DX: Z12.31 Encounter for screening mammogram for malignant neoplasm of breast (principal)
CPT/HCPCS: 77063; 77067

== ENCOUNTER 2023-01-25 11:00 | Outpatient (REF) | payer OTHER, SELFPAY | END 2023-01-25 11:01 | disposition home or self-care (01) | LOC: HO.MDS 11:00 | PROVIDERS: Visit Provider Internal Medicine Pulmonary Disease | DX: J45.50 Severe persistent asthma, uncomplicated (principal) | CPT/HCPCS: 96372; J2357 ==

== ENCOUNTER 2023-01-25 12:12 | Outpatient (REF) | payer OTHER, SELFPAY ==
--- NOTE | 2023-01-25 10:30 | EMG_ITS ---
Bilateral median and ulnar motor and sensory studies were performed. Bilateral radial sensory studies were performed and paraspinal muscles were tested with a needle. IMPRESSION: Mild to moderate bilateral median neuropathy across carpal tunnel. MD DEBI Mariee/SUNSHINE / [id number]
== END 2023-01-25 12:13 | disposition home or self-care (01) ==
LOC: HO.NEURO 12:12
PROVIDERS: PCP Internal Medicine; Visit Provider Internal Medicine
DX: R20.2 Paresthesia of skin (principal)
CPT/HCPCS: 95886; 95910

== ENCOUNTER 2023-02-08 09:48 | Outpatient (REF) | payer OTHER, SELFPAY | END 2023-02-08 09:49 | disposition home or self-care (01) | LOC: HO.MDS 09:48 | PROVIDERS: Visit Provider Internal Medicine Pulmonary Disease | DX: J45.50 Severe persistent asthma, uncomplicated (principal) | CPT/HCPCS: 96372; J2357 ==

== ENCOUNTER 2023-02-22 10:37 | Outpatient (REF) | payer OTHER, SELFPAY | END 2023-02-22 10:38 | disposition home or self-care (01) | LOC: HO.MDS 10:37 | PROVIDERS: Visit Provider Internal Medicine Pulmonary Disease | DX: J45.50 Severe persistent asthma, uncomplicated (principal) | CPT/HCPCS: 96372; J2357 ==

== ENCOUNTER → 2023-02-27 11:48 | Outpatient (BNVA) | payer OTHER, SELFPAY | PROVIDERS: PCP Internal Medicine; Visit Provider Orthopaedic Surgery | DX: G56.03 Carpal tunnel syndrome, bilateral upper limbs (principal) | CPT/HCPCS: 99202 ==

== ENCOUNTER → 2023-02-28 10:13 | Outpatient (BNVA) | payer OTHER, SELFPAY | PROVIDERS: PCP Internal Medicine; Visit Provider Nurse Practitioner Family | DX: G47.33 Obstructive sleep apnea (adult) (pediatric) (principal); E66.01 Morbid (severe) obesity due to excess calories; Z99.89 Dependence on other enabling machines and devices | CPT/HCPCS: 99202 ==

== ENCOUNTER 2023-03-08 11:33 | Outpatient (REF) | payer OTHER, SELFPAY | END 2023-03-08 11:34 | disposition home or self-care (01) | LOC: HO.MDS 11:33 | PROVIDERS: Visit Provider Internal Medicine Pulmonary Disease | DX: J45.50 Severe persistent asthma, uncomplicated (principal) | CPT/HCPCS: 96372; J2357 ==

== ENCOUNTER 2023-03-23 10:26 | Outpatient (REF) | payer OTHER, SELFPAY | END 2023-03-23 10:27 | disposition home or self-care (01) | LOC: HO.MDS 10:26 | PROVIDERS: Visit Provider Internal Medicine Pulmonary Disease | DX: J45.50 Severe persistent asthma, uncomplicated (principal) | CPT/HCPCS: 96372; J2357 ==

== ENCOUNTER 2023-04-09 10:29 | Outpatient (REF) | payer OTHER, SELFPAY | END 2023-04-09 10:30 | disposition home or self-care (01) | LOC: HO.MDS 10:29 | PROVIDERS: Visit Provider Internal Medicine | DX: J45.50 Severe persistent asthma, uncomplicated (principal) | CPT/HCPCS: 96372; J2357 ==

== ENCOUNTER 2023-04-24 11:45 | Outpatient (REF) | payer OTHER, SELFPAY | END 2023-04-24 11:46 | disposition home or self-care (01) | LOC: HO.MDS 11:45 | PROVIDERS: Visit Provider Hospitalist | DX: J45.50 Severe persistent asthma, uncomplicated (principal) | CPT/HCPCS: 96372; J2357 ==

== ENCOUNTER 2023-04-30 10:34 | Outpatient (AMB) | payer OTHER, SELFPAY ==
--- NOTE | 2023-04-30 10:35 | MHC.OFFVIS ---
Intake Vital Signs 04/30/23 10:45 Weight 249 lb BP 118/86 Pulse 99 Pulse Source Pulse Oximeter Pulse Oximetry (%) 96 Oxygen Delivery Method Room Air Intake Visit Reasons: 2m follow up SUSAN Intake Note: F/U SUSAN Psych Coordinator Required: No Allergies No Known Allergies [No Known Allergies*] Allergy (Verified 04/30/23 10:38) HPI HPI Comments History of Present Illness Details 48 y/o female patients for follow up of sleep study. Pt reports that she did not have a sleep study yet. Pt had no show for purification supervisor the sleep study equipment on 03/28/23. Pt did not know she had the appointment to purification supervisor the sleep study equipment. Pt reports that she was diagnosed with mild degree SUSAN in 2016 and tried CPAP. However, she could not use CPAP, it was very uncomfortable and had panic attack.? She only used CPAP short period of time. She gained about 40 lb since the last study. Pt reports snoring, and intermittent gasping arousals and nocturia. She has non refreshing sleep, AM headache with daytime tiredness. ? She used to smoke cigarettes a pack a day, but now she smokes 6-7 cigarettes a day. [facility] Medical History Anemia Asthma Fatty liver Headache Hemorrhoids Hx of renal calculi Seasonal allergies Sleep apnea Vertigo Surgical History History of bilateral tubal ligation Hx of section Hx of colonoscopy Hx of lithotripsy S/P ACL repair Family History Father Prostate cancer Mental health disorder Diabetes High cholesterol Paternal Aunt History of breast cancer Brother Colon cancer, Onset Age: 50 Son Mental health disorder Son Mental health disorder Mother Mental health disorder High cholesterol Diabetes Social History Housing: House Are you a primary associate director career services to a significant other at home: No Do you presently have visiting nurse or other home services: No Alcohol intake: current Alcohol intake frequency: holidays/special occasions only Patient Tobacco Use Status: Current everyday Tobacco user Tobacco use type: Cigarette Cigarettes Per Day: 5 Years Smoked: 30 e-Cigarette/Vaping Use: Never Used Current occupational status: employed 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 Gender identity: Female Cognitive needs: No Hearing needs: No Vision needs: No Female Reproductive History Menstrual Age of Menarche: 11 Review of Systems Const All systems reviewed & are unremarkable except as noted in HPI and below ENT Reports Normal hearing present Neuro Reports Normal hearing present Physical Exam Vital Signs: Last Vital Signs Pulse 99 04/30/23 10:45 BP 118/86 04/30/23 10:45 Pulse Ox 96 04/30/23 10:45 Oxygen Delivery Method Room Air 04/30/23 10:45 Const General: cooperative Nutritional Appearance: obese Orientation/consciousness: patient oriented x3 Limitations: no limitations Resp Effort & Inspection: normal respiratory effort and able to speak in complete sentences Neuro General: patient oriented x3, gait normal and moves all extremities Cranial nerves: Yes Normal facial strength present, Yes Midline tongue present, Yes Symmetric palate elevation present, Yes Normal hearing present, Yes Ability to bilaterally rotate head present and Yes Ability to bilaterally elevate shoulders present Cognition (Neuro): normal cognition Gait exam (Neuro): Normal gait present Motor exam (neuro): 5/5 motor strength present throughout, Pronator motor function not present and no tremor noted Psych Appearance: grossly normal Mental Status: mental status grossly normal Speech and movement: Normal speech and movement present Affect: normal affect Attitude: cooperative Assessment & Plan Assessment & Plan (1) Obstructive sleep apnea on CPAP: Code(s): G47.33 - Obstructive sleep apnea (adult) (pediatric); Z99.89 - Dependence on other enabling machines and devices (2) Obesity, morbid, BMI 40.0-49.9: Code(s): E66.01 - Morbid (severe) obesity due to excess calories Plan Pt wants to try home sleep study instead of in-lab sleep study. Rescheduled on 05/03/23 at 11 am. Information given to patient. Advised to undergo repeat sleep home study to assess for sleep apnea. Will f/u with pt after study to discuss results and appropriate treatment options. Sleep hygiene education provided. Advised patient to limit evening smoking. Wt reduction advised. Pt to call with any worsening concerns or questions. Coding Level of Care Code Est Pt Level 2 (01565) Diagnoses Obstructive sleep apnea on CPAP G47.33; Z99.89 Obesity, morbid, BMI 40.0-49.9 E66.01
[2023-04-30 10:45] VITALS: BP 118/86; PULSE 99; O2SAT 96
== END 2023-04-30 11:09 | disposition home or self-care (01) ==
PROVIDERS: PCP Internal Medicine; Visit Provider Nurse Practitioner Family
DX: G47.33 Obstructive sleep apnea (adult) (pediatric) (principal); Z99.89 Dependence on other enabling machines and devices; E66.01 Morbid (severe) obesity due to excess calories
CPT/HCPCS: 99212

== ENCOUNTER → 2023-04-30 10:34 | Outpatient (BNVA) | payer OTHER, SELFPAY | PROVIDERS: PCP Internal Medicine; Visit Provider Nurse Practitioner Family | DX: E66.01 Morbid (severe) obesity due to excess calories (principal); G47.33 Obstructive sleep apnea (adult) (pediatric); Z99.89 Dependence on other enabling machines and devices | CPT/HCPCS: 99212 ==

== ENCOUNTER → 2023-05-03 11:11 | Outpatient (REF) | payer OTHER, SELFPAY | LOC: HO.SL 11:11 | PROVIDERS: PCP Internal Medicine; Visit Provider Nurse Practitioner Family | DX: G47.33 Obstructive sleep apnea (adult) (pediatric) (principal); Z99.89 Dependence on other enabling machines and devices | CPT/HCPCS: 95806 ==

== ENCOUNTER → 2023-05-03 11:19 | Outpatient (BNV) | payer OTHER, SELFPAY | PROVIDERS: PCP Internal Medicine; Visit Provider Psychiatry & Neurology Neurology | DX: G47.33 Obstructive sleep apnea (adult) (pediatric) (principal) | CPT/HCPCS: 95806 ==

== ENCOUNTER 2023-05-08 13:00 | Outpatient (REF) | payer OTHER, SELFPAY | END 2023-05-08 13:01 | disposition home or self-care (01) | LOC: HO.MDS 13:00 | PROVIDERS: Visit Provider Hospitalist | DX: J45.50 Severe persistent asthma, uncomplicated (principal) | CPT/HCPCS: 96372; J2357 ==

== ENCOUNTER 2023-05-08 15:03 | Outpatient (AMB) | payer OTHER, SELFPAY ==
[2023-05-08 15:05] VITALS: BP 118/72; PULSE 90; O2SAT 96; BMI 50.1
--- NOTE | 2023-05-08 15:05 | MHC.PC.OV ---
Vital Signs 05/08/23 15:05 Height 4 ft 11 in Weight 248 lb 4 oz BMI 50.1 BP 118/72 Blood Pressure Location Rt brachial Position Sitting Pulse 90 Pulse Source Pulse Oximeter Pulse Oximetry (%) 96 Oxygen Delivery Method Room Air Intake Visit Reasons: 3 month Follow UP Asthma Allergies No Known Allergies [No Known Allergies*] Allergy (Verified 05/08/23 15:05) Medication List - Last Reconciled 05/08/23 by Sanna Marina MD albuterol sulfate 90 mcg/actuation (Ventolin HFA) 2 puffs inhalation Q4-6H PRN 30 days albuterol sulfate 2.5 mg (3 mL) inhalation Q8H PRN cholecalciferol (vitamin D3) 25 mcg PO DAILY 90 days cyanocobalamin (vitamin B-12) 1,000 mcg PO DAILY 90 days epinephrine 1 mL IM DIRECTED ferrous sulfate 324 mg PO BID 90 days fluticasone propion-salmeterol 115-21 mcg/actuation (Advair HFA) 2 inhalations inhalation BID furosemide 20 mg PO QAM PRN 30 days hydrocortisone 2.5% (Proctosol HC) 1 appl [place] BID-QID PRN ipratropium-albuterol 20-100 mcg/actuation (Combivent Respimat) 1 puff PO QID methylcellulose (laxative) (Citrucel) 500 mg PO DAILY montelukast 10 mg PO DAILY omalizumab (Xolair) 375 mg subcut Q2W 28 days Tobacco use date assessed: 05/08/23 Dental Screening Dental Screen Date: 05/08/23 Did you have a dental visit in the last 12 months?: Yes Did you have a dental problem in the last 6 months where you did not have access to dental care?: No Was dental information given to patient?: No HPI 3 month Follow UP Asthma HPI Details Patient is a 48-year-old female who was last seen in December of this year patient was supposed to have labs and return in 3 weeks That she forgot to do the labs pending come in for follow-up either. Reminded patient to do the labs and then return She is seeing neurologist for sleep apnea And has an upcoming appointment with Dr Oscar pulmonary nurse practitioner for asthma Patient will come back end of April follow-up A BMI is elevated at 50.1 I have given her name of phentermine patient will look it up and see if she would like to start that She tells me that she is taking prednisone 20 mg once a week on her own ordered from her sister, we talked about side effect of prednisone She is taking it for her asthma, patient says that she feels so much better and she is more active and was able to lose few lb because of this medication She will discuss it further with Dr Oscar FORMERLY [facility], [facility] Medical History Anemia Asthma Fatty liver Headache Hemorrhoids Hx of renal calculi Seasonal allergies Sleep apnea Vertigo Surgical History History of bilateral tubal ligation Hx of section Hx of colonoscopy Hx of lithotripsy S/P ACL repair Family History Father Prostate cancer Mental health disorder Diabetes High cholesterol Paternal Aunt History of breast cancer Brother Colon cancer, Onset Age: 50 Son Mental health disorder Son Mental health disorder Mother Mental health disorder High cholesterol Diabetes Social History Housing: House Are you a primary care program resident to a significant other at home: No Do you presently have visiting nurse or other home services: No Alcohol intake: current Alcohol intake frequency: holidays/special occasions only Patient Tobacco Use Status: Current everyday Tobacco user Tobacco use type: Cigarette Cigarettes Per Day: 5 Years Smoked: 30 e-Cigarette/Vaping Use: Never Used Current occupational status: employed 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 How often do you have a drink containing alcohol?: Never 3. How often do you have six or more drinks on one occasion?: Never Total Score: 0 Score Reviewed/Action Taken: Yes GEOVANNA-7 AMB Questionnaire GEOVANNA-7 Date GEOVANNA - 7 assessed: 01/04/22 Source: Developed by Drs. Dc Marsh, Lakeisha Holley, Willem Cummings and colleagues, with an educational ade from [employer]. Review of Systems Const Denies chills and Denies fever(s) ENT Denies epistaxis and Denies nasal discharge Card Denies chest pain Resp Denies chest congestion, Denies cough and Denies hemoptysis GI Denies diarrhea and Denies nausea Skin/Breast Denies rash Neuro Reports no additional complaints Psych Reports no additional complaints Endo Reports no additional complaints Physical exam (Primary Care) Vital Signs: Last Vital Signs Pulse 90 05/08/23 15:05 BP 118/72 05/08/23 15:05 Pulse Ox 96 05/08/23 15:05 Oxygen Delivery Method Room Air 05/08/23 15:05 BMI result Body Mass Index 50.1 Tobacco/Smoking Status: Tobacco use Status Tobacco use date assessed 05/08/23 05/08/23 15:07 Patient Tobacco Use Status Current everyday Tobacco 05/08/23 15:07 Tobacco use type Cigarette 05/08/23 15:07 e-Cigarette/Vaping Use Never Used 05/08/23 15:07 Thrive Assessment: Date of Thrive Assessment Date Thrive assessed 01/04/22 05/08/23 15:07 Const General: cooperative, comfortable and no acute distress Orientation/consciousness: patient oriented x3 HENMT Head: Yes normocephalic Eyes General: appearance normal, both eyes and all related structures Neck Neck: Yes supple Resp Effort & Inspection: normal respiratory effort, no cough and no stridor Cardio Rhythm: regular rhythm Heart sounds: S1 normal heart sound present and S2 normal heart sound present Skin General skin exam: turgor normal Neuro General: patient oriented x3, tone normal and moves all extremities Extrem Right lower extremity: no edema Left lower extremity: no edema Assessment and Plan Assessment & Plan (1) Morbid obesity due to excess calories: Code(s): E66.01 - Morbid (severe) obesity due to excess calories (2) Anemia, iron deficiency: Code(s): D50.9 - Iron deficiency anemia, unspecified (3) Obstructive sleep apnea on CPAP: Code(s): G47.33 - Obstructive sleep apnea (adult) (pediatric); Z99.89 - Dependence on other enabling machines and devices (4) Severe persistent asthma: Code(s): J45.50 - Severe persistent asthma, uncomplicated Qualifiers: Asthma complication type: uncomplicated Qualified Code(s): J45.50 - Severe persistent asthma, uncomplicated Plan Patient is a 48-year-old female who was last seen in December of this year patient was supposed to have labs and return in 3 weeks That she forgot to do the labs pending come in for follow-up either. Reminded patient to do the labs and then return She is seeing neurologist for sleep apnea And has an upcoming appointment with Dr Oscar pulmonary nurse practitioner for asthma Patient will come back end of April follow-up A BMI is elevated at 50.1 I have given her name of phentermine patient will look it up and see if she would like to start that She tells me that she is taking prednisone 20 mg once a week on her own ordered from her sister, we talked about side effect of prednisone She is taking it for her asthma, patient says that she feels so much better and she is more active and was able to lose few lb because of this medication She will discuss it further with Dr Oscar Coding Level of Care Code Est Pt Level 3 (80757) Diagnoses Morbid obesity due to excess calories E66.01 Anemia, iron deficiency D50.9 Obstructive sleep apnea on CPAP G47.33; Z99.89 Severe persistent asthma J45.50 Asthma complication type: uncomplicated
== END 2023-05-08 15:35 | disposition home or self-care (01) ==
PROVIDERS: PCP Internal Medicine; Visit Provider Internal Medicine
DX: D50.9 Iron deficiency anemia, unspecified (principal); E66.01 Morbid (severe) obesity due to excess calories; J45.50 Severe persistent asthma, uncomplicated; Z68.43 Body mass index [BMI] 50.0-59.9, adult; G47.33 Obstructive sleep apnea (adult) (pediatric); Z99.89 Dependence on other enabling machines and devices
CPT/HCPCS: 99213

== ENCOUNTER 2023-05-18 11:44 | Outpatient (REF) | payer OTHER, SELFPAY ==
[2023-05-18 13:31] LABS: MANUAL DIFF FLAG NO
[2023-05-18 13:42] LABS: Basophils Absolute Auto 0.1 X10*3/uL (0.0-0.2); Eosinophils Absolute Auto 0.2 X10*3/uL (0.0-0.4); Eosinophils Percent Auto 2.9 % (0-4); Hematocrit 41.5 % (37.0-47.0); Hemoglobin 12.2 g/dl (12.0-16.0); Imm Gran Abs Auto 0.02 X10*3/uL (0.00-0.03); Imm Gran Pct Auto 0.3 % (0.0-0.4); Lymphocytes Absolute Auto 1.6 X10*3/uL (1.2-4.9); Lymphocytes Percent Auto 22.4 % (20-40); Mean Corpuscular HGB Conc 29.4 g/dl (31.0-35.0); Mean Corpuscular Hemoglobin 24.5 pg (27.0-33.0); Mean Corpuscular Volume 83.5 fL (80.0-98.0); Mean Platelet Volume 9.1 fL (9.4-12.3); Monocytes Absolute Auto 0.3 X10*3/uL (0.1-1.2); Monocytes Percent Auto 4.7 % (2-11); Neutrophils Absolute Auto 4.8 x10*3/uL (2.0-8.3); Neutrophils Percent Auto 68.7 % (45-73); Platelet Count 469 X10*3/uL (160-400); Red Blood Count 4.97 X10*6/uL (4.20-5.50); Red Cell Distribution Width 17.4 % (11.0-16.0)
[2023-05-18 14:25] LABS: Alanine Aminotransferase 30 U/L (0-31); Albumin Level 3.9 g/dL (3.5-5.0); Alkaline Phosphatase 122 U/L (39-117); Anion Gap 12 (12-20); Aspartate Amino Transferase 19 U/L (5-31); Bilirubin Total 0.2 mg/dL (0.0-1.0); Blood Urea Nitrogen 9 mg/dL (9-16); Calcium 9.3 mg/dL (8.4-10.2); Carbon Dioxide 27 mmol/L (22-29); Chloride 107 mmol/L (96-108); Estimated Glomerular Filt Rate > 60; Glucose Random 157 mg/dL (60-115); Potassium 3.5 mmol/L (3.3-5.1); Sodium 142 mmol/L (135-145); Total Protein 7.1 g/dL (6.5-8.0)
[2023-05-18 14:30] LABS: Ferritin 8 ng/mL (10-250); TSH reflex Free T4 0.37 uIU/mL (0.32-4.0)
[2023-05-18 14:40] LABS: Vitamin B12 460 pg/mL (200-900)
[2023-05-23 14:34] LABS: Vitamin D 25-OH, D2 <4 ng/mL; Vitamin D 25-OH, D3 11 ng/mL; Vitamin D 25-OH, Total 11 ng/mL (30-100)
== END 2023-05-18 11:45 | disposition home or self-care (01) ==
LOC: HO.HMGCLDS 11:44
PROVIDERS: PCP Internal Medicine; Visit Provider Internal Medicine
DX: Z00.01 Encounter for general adult medical examination with abnormal findings (principal); N92.4 Excessive bleeding in the premenopausal period; J45.50 Severe persistent asthma, uncomplicated; G47.33 Obstructive sleep apnea (adult) (pediatric); D50.9 Iron deficiency anemia, unspecified; E53.8 Deficiency of other specified B group vitamins; R20.2 Paresthesia of skin; Z99.89 Dependence on other enabling machines and devices
CPT/HCPCS: 36415; 80053; 82306; 82607; 82728; 84443; 85025

== ENCOUNTER 2023-05-22 11:29 | Outpatient (REF) | payer OTHER, SELFPAY | END 2023-05-22 11:30 | disposition home or self-care (01) | LOC: HO.MDS 11:29 | PROVIDERS: Visit Provider Hospitalist | DX: J45.50 Severe persistent asthma, uncomplicated (principal) | CPT/HCPCS: 96372; J2357 ==

== ENCOUNTER 2023-05-23 10:36 | Outpatient (AMB) | payer OTHER, SELFPAY ==
--- NOTE | 2023-05-23 10:38 | MHC.PC.OV ---
Vital Signs 05/23/23 10:40 Height 4 ft 11 in Weight 250 lb BMI 50.5 BP 114/68 Blood Pressure Location Rt brachial Position Sitting Pulse 112 H Pulse Source Pulse Oximeter Pulse Oximetry (%) 95 Oxygen Delivery Method Room Air Intake Visit Reasons: Follow up/Per [place] Allergies No Known Allergies [No Known Allergies*] Allergy (Verified 05/23/23 10:41) Medication List - Last Reconciled 05/23/23 by Sanna Marina MD albuterol sulfate 90 mcg/actuation (Ventolin HFA) 2 puffs inhalation Q4-6H PRN 30 days albuterol sulfate 2.5 mg (3 mL) inhalation Q8H PRN cholecalciferol (vitamin D3) 25 mcg PO DAILY 90 days cyanocobalamin (vitamin B-12) 1,000 mcg PO DAILY 90 days epinephrine 1 mL IM DIRECTED ferrous sulfate 324 mg PO BID 90 days fluticasone propion-salmeterol 115-21 mcg/actuation (Advair HFA) 2 inhalations inhalation BID furosemide 20 mg PO QAM PRN 30 days hydrocortisone 2.5% (Proctosol HC) 1 appl [place] BID-QID PRN ipratropium-albuterol 20-100 mcg/actuation (Combivent Respimat) 1 puff PO QID methylcellulose (laxative) (Citrucel) 500 mg PO DAILY montelukast 10 mg PO DAILY omalizumab (Xolair) 375 mg subcut Q2W 28 days Tobacco use date assessed: 05/08/23 Dental Screening Dental Screen Date: 05/23/23 Did you have a dental visit in the last 12 months?: Yes Did you have a dental problem in the last 6 months where you did not have access to dental care?: No Was dental information given to patient?: Patient has dentist HPI Follow up/Per [place] HPI Details Patient is a 48-year-old female came in today for follow-up appointment on Labs Patient is anemic iron deficiency most likely secondary to heavy menstrual cycle I would like patient to start taking iron supplement at least once a week with orange juice on empty stomach She also need to continue B12 supplement 2 times a week and vitamin-D supplement daily Patient continued to have full body pain she says that it feels as if her bones are hurting I am hoping that with supplementation her symptoms will improve however I think it is important that she be evaluated by Rheumatology Fibromyalgia is another possibility. She had a sleep study done through neurology we went over the report patient have a severe sleep apnea She is in need of a 2nd phase of sleep study, she will be calling neurology office for 2nd part of the study order BMI is elevated above 50 which is a health risk Patient is having difficulty losing weight She wanted to have gastric balloon procedure but that is not covered under the insurance and cost about 6 has not orders Patient is to return in 3 month for follow-up Labs needs to be done before visit [facility] Medical History Anemia Asthma Fatty liver Headache Hemorrhoids Hx of renal calculi Seasonal allergies Sleep apnea Vertigo Surgical History History of bilateral tubal ligation Hx of section Hx of colonoscopy Hx of lithotripsy S/P ACL repair Family History Father Prostate cancer Mental health disorder Diabetes High cholesterol Paternal Aunt History of breast cancer Brother Colon cancer, Onset Age: 50 Son Mental health disorder Son Mental health disorder Mother Mental health disorder High cholesterol Diabetes Social History Housing: House Are you a primary customer care assistant to a significant other at home: No Do you presently have visiting nurse or other home services: No Alcohol intake: current Alcohol intake frequency: holidays/special occasions only Patient Tobacco Use Status: Current everyday Tobacco user Tobacco use type: Cigarette Cigarettes Per Day: 5 Years Smoked: 30 e-Cigarette/Vaping Use: Never Used Current occupational status: employed 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 1. Little interest or pleasure in doing things: several days 2. Feeling down, depressed, or hopeless: not at all 3. Trouble falling or staying asleep, or sleeping too much: not at all 4. Feeling tired or having little energy: several days 5. Poor appetite or overeating: not at all 6. Feeling bad about yourself - or that you are a failure or have let yourself or your family down: several days 7. Trouble concentrating on things, such as reading the newspaper or watching television: not at all 8. Moving or speaking so slowly that other people could have noticed. Or the opposite - being so fidgety or restless that you have been moving around a lot more than usual: not at all 9. Thoughts that you would be better off or of hurting yourself in some way: not at all Total score: 3 Depression Screening Interpretation: Negative 89411 - PHQ-9 Billing: Yes Source: Developed by Drs. Dc Marsh, Lakeisha Holley, Willem Cummings and colleagues, with an educational ade from [employer]. Thrive Questionnaire Date Thrive assessed: 01/04/22 AUDIT C Alcohol Use Questionnaire (AUDIT-C) 1. How often do you have a drink containing alcohol?: Never 3. How often do you have six or more drinks on one occasion?: Never Total Score: 0 Score Reviewed/Action Taken: No GEOVANNA-7 AMB Questionnaire GEOVANNA-7 Date GEOVANNA - 7 assessed: 05/23/23 Feeling nervous, anxious, or on edge: 0 = Not at all Not being able to stop or control worryin = Not at all Worrying too much about different things: 0 = Not at all Trouble relaxin = Not at all Being so restless that it is hard to sit still: 0 = Not at all Becoming easily annoyed or irritable: 0 = Not at all Feeling afraid as if something awful might happen: 0 = Not at all Total GEOVANNA-7 score (0-4 normal; 5-9 mild; 10-14 moderate; 15-21 severe): 0 Source: Developed by Drs. Dc Marsh, Lakeisha Holley, Willem Cummings and colleagues, with an educational ade from [employer]. GEOVANNA-7 Assessment Billing GEOVANNA-7 Assessment Tool: GEOVANNA-7 Assessment [id number] Review of Systems Const Denies chills and Denies fever(s) ENT Denies epistaxis and Denies nasal discharge Card Denies chest pain Resp Denies chest congestion, Denies cough and Denies hemoptysis GI Denies diarrhea and Denies nausea Skin/Breast Denies rash Neuro Reports no additional complaints Psych Reports no additional complaints Endo Reports no additional complaints Physical exam (Primary Care) Vital Signs: Last Vital Signs Pulse 112 H 05/23/23 10:40 BP 114/68 05/23/23 10:40 Pulse Ox 95 05/23/23 10:40 Oxygen Delivery Method Room Air 05/23/23 10:40 BMI result Body Mass Index 50.5 Tobacco/Smoking Status: Tobacco use Status Tobacco use date assessed 05/08/23 05/23/23 10:39 Patient Tobacco Use Status Current everyday Tobacco 05/23/23 10:39 Tobacco use type Cigarette 05/23/23 10:39 e-Cigarette/Vaping Use Never Used 05/23/23 10:39 PHQ-9: PHQ-9 Score PHQ-9: Total score 3 05/23/23 11:51 Depression Screening Interpretation: Negative Thrive Assessment: Date of Thrive Assessment Date Thrive assessed 01/04/22 05/23/23 10:39 Const General: cooperative, comfortable and no acute distress Orientation/consciousness: patient oriented x3 HENMT Head: Yes normocephalic Eyes General: appearance normal, both eyes and all related structures Neck Neck: Yes supple Resp Effort & Inspection: normal respiratory effort, no cough and no stridor Cardio Rhythm: regular rhythm Heart sounds: S1 normal heart sound present and S2 normal heart sound present Skin General skin exam: turgor normal Neuro General: patient oriented x3, tone normal and moves all extremities Extrem Right lower extremity: no edema Left lower extremity: no edema Assessment and Plan Assessment & Plan (1) Arthrosis: Code(s): M19.90 - Unspecified osteoarthritis, unspecified site (2) Whole body pain: Code(s): R52 - Pain, unspecified (3) Morbid obesity due to excess calories: Code(s): E66.01 - Morbid (severe) obesity due to excess calories (4) Vitamin D deficiency: Code(s): E55.9 - Vitamin D deficiency, unspecified (5) B12 deficiency: Code(s): E53.8 - Deficiency of other specified B group vitamins (6) Anemia, iron deficiency: Code(s): D50.9 - Iron deficiency anemia, unspecified Plan Patient is a 48-year-old female came in today for follow-up appointment on Labs Patient is anemic iron deficiency most likely secondary to heavy menstrual cycle I would like patient to start taking iron supplement at least once a week with orange juice on empty stomach She also need to continue B12 supplement 2 times a week and vitamin-D supplement daily Patient continued to have full body pain she says that it feels as if her bones are hurting I am hoping that with supplementation her symptoms will improve however I think it is important that she be evaluated by Rheumatology Fibromyalgia is another possibility. She had a sleep study done through neurology we went over the report patient have a severe sleep apnea She is in need of a 2nd phase of sleep study, she will be calling neurology office for 2nd part of the study order BMI is elevated above 50 which is a health risk Patient is having difficulty losing weight She wanted to have gastric balloon procedure but that is not covered under the insurance and cost about 6 has not orders Patient is to return in 3 month for follow-up Labs needs to be done before visit Orders: Orders Vitamin B12 2 Months D50.9 - Iron deficiency anemia, unspecified, E53.8 - Deficiency of other specified B group vitamins, E55.9 - Vitamin D deficiency, unspecified, E66.01 - Morbid (severe) obesity due to excess calories, M19.90 - Unspecified osteoarthritis, unspecified site, R52 - Pain, unspecified Comprehensive Met. Panel 2 Months D50.9 - Iron deficiency anemia, unspecified, E53.8 - Deficiency of other specified B group vitamins, E55.9 - Vitamin D deficiency, unspecified, E66.01 - Morbid (severe) obesity due to excess calories, M19.90 - Unspecified osteoarthritis, unspecified site, R52 - Pain, unspecified Ferritin 2 Months D50.9 - Iron deficiency anemia, unspecified, E53.8 - Deficiency of other specified B group vitamins, E55.9 - Vitamin D deficiency, unspecified, E66.01 - Morbid (severe) obesity due to excess calories, M19.90 - Unspecified osteoarthritis, unspecified site, R52 - Pain, unspecified Vitamin D 25-OH (D2 and D3) 2 Months D50.9 - Iron deficiency anemia, unspecified, E53.8 - Deficiency of other specified B group vitamins, E55.9 - Vitamin D deficiency, unspecified, E66.01 - Morbid (severe) obesity due to excess calories, M19.90 - Unspecified osteoarthritis, unspecified site, R52 - Pain, unspecified Complete Blood Count Auto Diff 2 Months D50.9 - Iron deficiency anemia, unspecified, E53.8 - Deficiency of other specified B group vitamins, E55.9 - Vitamin D deficiency, unspecified, E66.01 - Morbid (severe) obesity due to excess calories, M19.90 - Unspecified osteoarthritis, unspecified site, R52 - Pain, unspecified Referrals Rheumatology Referral M19.90 - Unspecified osteoarthritis, unspecified site, R52 - Pain, unspecified Coding Level of Care Code Est Pt Level 4 (98456) Diagnoses Arthrosis M19.90 Whole body pain R52 Morbid obesity due to excess calories E66.01 Vitamin D deficiency E55.9 B12 deficiency E53.8 Anemia, iron deficiency D50.9 Additional Codes GEOVANNA-7 Assessment Billing - GEOVANNA-7 Assessment Tool: GEOVANNA-7 Assessment [id number] ([id number])
[2023-05-23 10:40] VITALS: BP 114/68; PULSE 112; O2SAT 95; BMI 50.5
== END 2023-05-23 11:09 | disposition home or self-care (01) ==
PROVIDERS: PCP Internal Medicine; Visit Provider Internal Medicine
DX: M19.90 Unspecified osteoarthritis, unspecified site (principal); E66.01 Morbid (severe) obesity due to excess calories; E55.9 Vitamin D deficiency, unspecified; Z68.43 Body mass index [BMI] 50.0-59.9, adult; E53.8 Deficiency of other specified B group vitamins; D50.9 Iron deficiency anemia, unspecified
CPT/HCPCS: 99214

== ENCOUNTER 2023-06-05 14:31 | Outpatient (REF) | payer OTHER, SELFPAY | END 2023-06-05 14:32 | disposition home or self-care (01) | LOC: HO.MDS 14:31 | PROVIDERS: Visit Provider Hospitalist | DX: J45.50 Severe persistent asthma, uncomplicated (principal) | CPT/HCPCS: 96372; J2357 ==

== ENCOUNTER 2023-06-19 10:40 | Outpatient (AMB) | payer OTHER, SELFPAY ==
[2023-06-19 10:42] VITALS: BP 118/77; PULSE 95; O2SAT 97; BMI 50.5
--- NOTE | 2023-06-19 10:42 | A.OFFVIS_ITS ---
Intake Vital Signs 06/19/23 10:42 Height 4 ft 11 in Weight 250 lb 3.594 oz BMI 50.5 BP 118/77 Blood Pressure Location Lt brachial Position Sitting Pulse 95 Pulse Source Doppler Pulse Oximetry (%) 97 Oxygen Delivery Method Room Air Intake Visit Reasons: Asthma Allergies No Known Allergies [No Known Allergies*] Allergy (Verified 06/19/23 10:48) HPI Asthma HPI Details 48-year-old lady, active 20 pack-year sm laurie, followed for severe persistent allergic asthma.? She has been using Xolair, Advair, Incruse, and Combivent with reasonable baseline control.? Now she complains of progressively worsening orthopnea, paroxysmal nocturnal dyspnea, lower extremity edema, and dyspnea on exertion with no response to Lasix 20 mg daily recently prescribed by her primary care provider. [facility], [facility] Medical History Anemia Asthma Fatty liver Headache Hemorrhoids Hx of renal calculi Seasonal allergies Sleep apnea Vertigo Surgical History History of bilateral tubal ligation Hx of section Hx of colonoscopy Hx of lithotripsy S/P ACL repair Family History Father Prostate cancer Mental health disorder Diabetes High cholesterol Paternal Aunt History of breast cancer Brother Colon cancer, Onset Age: 50 Son Mental health disorder Son Mental health disorder Mother Mental health disorder High cholesterol Diabetes Social History Housing: House Are you a primary healthcare consulting manager to a significant other at home: No Do you presently have visiting nurse or other home services: No Alcohol intake: current Alcohol intake frequency: holidays/special occasions only Patient Tobacco Use Status: Current everyday Tobacco user Tobacco use type: Cigarette Cigarettes Per Day: 5 Years Smoked: 30 e-Cigarette/Vaping Use: Never Used Current occupational status: employed 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 Gender identity: Female Cognitive needs: No Hearing needs: No Vision needs: No Female Reproductive History Menstrual Age of Menarche: 11 Review of Systems Const Denies daytime sleepiness, Denies excessive sweating, Denies fatigue, Denies fever(s), Denies lethargy, Denies malaise, Denies night sweats, Denies snoring and Denies weight loss Eyes Denies blurry vision and Denies itchy eyes ENT Denies nasal congestion, Denies post nasal drip, Denies sinus pain, Denies sinus pressure and Denies other ( Thrush) Card Denies chest pain, Reports pedal edema, Denies dyspnea, Reports dyspnea on exertion, Reports orthopnea and Reports paroxysmal nocturnal dyspnea Resp Denies cough, Denies hemoptysis, Denies excessive phlegm production, Denies dyspnea, Reports dyspnea on exertion, Denies snoring and Denies wheezing GI Denies abdominal pain and Denies heartburn Musc Denies myalgias, Denies arthralgias and Denies joint swelling Skin/Breast Denies rash Neuro Denies memory loss and Denies seizure-like activity Psych Denies abnormal sleep pattern, Denies anxiety and Denies memory loss Endo Denies excessive sweating, Denies fatigue and Denies heat intolerance Castro/Lymph Denies easy bruising Aller/Immun Denies itchy eyes, Denies seasonal rhinorrhea and Denies wheezing Physical Exam Vital Signs: Last Vital Signs Pulse 95 06/19/23 10:42 BP 118/77 06/19/23 10:42 Pulse Ox 97 06/19/23 10:42 Oxygen Delivery Method Room Air 06/19/23 10:42 BMI result Body Mass Index 50.5 Const General: no acute distress and alert Nutritional Appearance: obese Orientation/consciousness: Other orientation findings ( oriented) HEENT Head: Yes atraumatic Eyes General: appearance normal, both eyes and all related structures Sclerae: sclerae normal EOM: EOMs intact bilaterally Neck Neck: Yes supple Lymphatic: no lymphadenopathy noted Resp Effort & Inspection: normal respiratory effort and no use of accessory muscles Auscultation: crackles (Bibasilar) Cardio Rate: regular rate Rhythm: regular rhythm Heart sounds: no gallops, no murmurs and no rubs Skin General skin exam: other ( warm) Extrem General: No clubbing, No cyanosis and Yes edema (2+ bilateral) Assessment & Plan Assessment & Plan (1) Severe persistent asthma: Code(s): J45.50 - Severe persistent asthma, uncomplicated Qualifiers: Asthma complication type: uncomplicated Qualified Code(s): J45.50 - Severe persistent asthma, uncomplicated Plan: Baseline controlled on Xolair, Advair, Combivent, and albuterol MDI/nebs. Continue current regimen. (2) Environmental allergies: Code(s): Z91.09 - Other allergy status, other than to drugs and biological substances Plan: Baseline controlled on Xolair. Continue current regimen. (3) BARNES (dyspnea on exertion): Code(s): R06.09 - Other forms of dyspnea Plan: Now with significant dyspnea on exertion, orthopnea, paroxysmal nocturnal dyspnea, and lower extremity edema. No response to Lasix 20 mg daily. Will switch to Bumex 0.5 mg daily. Will obtain 2D echocardiogram. Orders: Orders CA echo transthoracic complete Today R06.09 - Other forms of dyspnea Medications: New bumetanide 0.5 mg PO DAILY 30 days 30 tabs 6RF Refilled ipratropium-albuterol 20-100 mcg/actuation (Combivent Respimat) 1 puff PO QID 12 mL 6RF Discontinued furosemide Take it for 7 days and then as needed for swelling of ankles Discontinued Reason: Doctor's Order 20 mg PO QAM 30 days PRN 30 tabs 0RF edema Coding Level of Care Code Est Pt Level 4 (25403) Diagnoses Severe persistent asthma without complication J45.50 Asthma complication type: uncomplicated Environmental allergies Z91.09 BARNES (dyspnea on exertion) R06.09
== END 2023-06-19 11:01 | disposition home or self-care (01) ==
PROVIDERS: PCP Internal Medicine; Visit Provider Internal Medicine Pulmonary Disease
DX: J45.50 Severe persistent asthma, uncomplicated (principal); Z91.09 Other allergy status, other than to drugs and biological substances; R06.09 Other forms of dyspnea
CPT/HCPCS: 99214

== ENCOUNTER 2023-06-19 11:09 | Outpatient (REF) | payer OTHER, SELFPAY | END 2023-06-19 11:10 | disposition home or self-care (01) | LOC: HO.MDS 11:09 | PROVIDERS: Visit Provider Hospitalist | DX: J45.50 Severe persistent asthma, uncomplicated (principal) | CPT/HCPCS: 96372; 99212; J2357 ==

== ENCOUNTER → 2023-06-22 21:24 | Outpatient (REF) | payer OTHER, SELFPAY | LOC: HO.SL 21:24 | PROVIDERS: PCP Internal Medicine; Visit Provider Nurse Practitioner Family | DX: G47.33 Obstructive sleep apnea (adult) (pediatric) (principal) | CPT/HCPCS: 95811 ==

== ENCOUNTER → 2023-06-22 21:39 | Outpatient (BNV) | payer OTHER, SELFPAY | PROVIDERS: PCP Internal Medicine; Visit Provider Psychiatry & Neurology Neurology | DX: G47.33 Obstructive sleep apnea (adult) (pediatric) (principal) | CPT/HCPCS: 95811 ==

== ENCOUNTER 2023-06-28 10:21 | Outpatient (AMB) | payer OTHER, SELFPAY ==
[2023-06-28 11:04] VITALS: BP 112/66; PULSE 91; O2SAT 98; BMI 50.1
--- NOTE | 2023-06-28 11:04 | MHC.OFFVIS ---
Intake Vital Signs 06/28/23 11:04 Height 4 ft 11 in Weight 248 lb 0.321 oz BMI 50.1 BP 112/66 Blood Pressure Location Lt brachial Position Sitting Pulse 91 Pulse Source Doppler Pulse Oximetry (%) 98 Oxygen Delivery Method Room Air Intake Visit Reasons: Asthma Allergies No Known Allergies [No Known Allergies*] Allergy (Verified 06/28/23 11:09) HPI Asthma HPI Details 48-year-old lady, active 20 pack-year smoker, followed for severe persistent allergic asthma.? She has been using Xolair, Advair, Incruse, and Combivent with reasonable baseline control.? After the last office visit her Lasix has been changed to Bumex 0.5 with significant improvement in lower extremity edema, dyspnea on exertion, and orthopnea. PFSH Medical History Anemia Asthma Fatty liver Headache Hemorrhoids Hx of renal calculi Seasonal allergies Sleep apnea Vertigo Surgical History History of bilateral tubal ligation Hx of section Hx of colonoscopy Hx of lithotripsy S/P ACL repair Family History Father Prostate cancer Mental health disorder Diabetes High cholesterol Paternal Aunt History of breast cancer Brother Colon cancer, Onset Age: 50 Son Mental health disorder Son Mental health disorder Mother Mental health disorder High cholesterol Diabetes Social History Housing: House Are you a primary youth care specialist to a significant other at home: No Do you presently have visiting nurse or other home services: No Alcohol intake: current Alcohol intake frequency: holidays/special occasions only Patient Tobacco Use Status: Current everyday Tobacco user Tobacco use type: Cigarette Cigarettes Per Day: 5 Years Smoked: 30 e-Cigarette/Vaping Use: Never Used Current occupational status: employed 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 Gender identity: Female Cognitive needs: No Hearing needs: No Vision needs: No Female Reproductive History Menstrual Age of Menarche: 11 Review of Systems Const Denies daytime sleepiness, Denies excessive sweating, Denies fatigue, Denies fever(s), Denies lethargy, Denies malaise, Denies night sweats, Denies snoring and Denies weight loss Eyes Denies blurry vision and Denies itchy eyes ENT Denies nasal congestion, Denies post nasal drip, Denies sinus pain, Denies sinus pressure and Denies other ( Thrush) Card Denies chest pain, Denies pedal edema, Denies dyspnea, Denies orthopnea and Denies paroxysmal nocturnal dyspnea Resp Denies cough, Denies hemoptysis, Denies excessive phlegm production, Denies dyspnea, Denies snoring and Denies wheezing GI Denies abdominal pain and Denies heartburn Musc Denies myalgias, Denies arthralgias and Denies joint swelling Skin/Breast Denies rash Neuro Denies memory loss and Denies seizure-like activity Psych Denies abnormal sleep pattern, Denies anxiety and Denies memory loss Endo Denies excessive sweating, Denies fatigue and Denies heat intolerance Castro/Lymph Denies easy bruising Aller/Immun Denies itchy eyes, Denies seasonal rhinorrhea and Denies wheezing Physical Exam Vital Signs: Last Vital Signs Pulse 91 06/28/23 11:04 BP 112/66 06/28/23 11:04 Pulse Ox 98 06/28/23 11:04 Oxygen Delivery Method Room Air 06/28/23 11:04 BMI result Body Mass Index 50.1 Const General: no acute distress and alert Nutritional Appearance: obese Orientation/consciousness: Other orientation findings ( oriented) HEENT Head: Yes atraumatic Eyes General: appearance normal, both eyes and all related structures Sclerae: sclerae normal EOM: EOMs intact bilaterally Neck Neck: Yes supple Lymphatic: no lymphadenopathy noted Resp Effort & Inspection: normal respiratory effort and no use of accessory muscles Auscultation: clear to auscultation bilaterally Cardio Rate: regular rate Rhythm: regular rhythm Heart sounds: no gallops, no murmurs and no rubs Skin General skin exam: other ( warm) Extrem General: No clubbing, No cyanosis and Yes edema (2+ bilateral) Assessment & Plan Assessment & Plan (1) Severe persistent asthma: Code(s): J45.50 - Severe persistent asthma, uncomplicated Qualifiers: Asthma complication type: uncomplicated Qualified Code(s): J45.50 - Severe persistent asthma, uncomplicated Plan: Well controlled on Xolair, Advair, and Combivent. Continue current regimen. (2) Environmental allergies: Code(s): Z91.09 - Other allergy status, other than to drugs and biological substances Plan: Well controlled on Xolair and Singulair. Continue current regimen. (3) BARNES (dyspnea on exertion): Code(s): R06.09 - Other forms of dyspnea Plan: Significant symptomatic improvement on Bumex 0.5 mg daily. Continue current regimen. Coding Level of Care Code Est Pt Level 4 (56793) Diagnoses Severe persistent asthma without complication J45.50 Asthma complication type: uncomplicated Environmental allergies Z91.09 BARNES (dyspnea on exertion) R06.09
== END 2023-06-28 11:25 | disposition home or self-care (01) ==
PROVIDERS: PCP Internal Medicine; Visit Provider Internal Medicine Pulmonary Disease
DX: J45.50 Severe persistent asthma, uncomplicated (principal); Z91.09 Other allergy status, other than to drugs and biological substances; R06.09 Other forms of dyspnea
CPT/HCPCS: 99214

== ENCOUNTER → 2023-06-28 10:21 | Outpatient (BNVA) | payer OTHER, SELFPAY | PROVIDERS: PCP Internal Medicine; Visit Provider Internal Medicine Pulmonary Disease | DX: J45.50 Severe persistent asthma, uncomplicated (principal); R06.09 Other forms of dyspnea; Z91.09 Other allergy status, other than to drugs and biological substances | CPT/HCPCS: 99212 ==

== ENCOUNTER 2023-07-03 09:46 | Outpatient (REF) | payer OTHER, SELFPAY | END 2023-07-03 09:47 | disposition home or self-care (01) | LOC: HO.MDS 09:46 | PROVIDERS: Visit Provider Hospitalist | DX: J45.50 Severe persistent asthma, uncomplicated (principal) | CPT/HCPCS: 96372; J2357 ==

== ENCOUNTER 2023-07-17 10:13 | Outpatient (REF) | payer OTHER, SELFPAY | END 2023-07-17 10:14 | disposition home or self-care (01) | LOC: HO.MDS 10:13 | PROVIDERS: Visit Provider Hospitalist | DX: J45.50 Severe persistent asthma, uncomplicated (principal) | CPT/HCPCS: 96372; J2357 ==

== ENCOUNTER → 2023-07-20 11:09 | Outpatient (REF) | payer OTHER, SELFPAY ==
--- NOTE | 2023-07-20 11:11 | CA_ITS ---
Transthoracic Echocardiogram Patient (Last, First, Middle): Kayleigh Cabrera E Gender: Female Date of : 1975 Age: 48 Procedure Date: 07/20/2023 Procedure Type: Transthoracic Echocardiogram Location: OP Height: 149.86 cm Weight: 110.22 kg BSA: 2.00 m2 Heart Rate: 85 bpm BP: 110 / 70 mmHg [employer]: MIGUEL ANGEL Sotelo MD: Chetan Oscar MD Sat Tutor: Matthew Durham MD Symptoms: R06.09 - Other forms of dyspnea Study Quality: Adequate ECG Rhythm: Sinus Conclusions: - 1. Normal LV ejection fraction of 60 65% with mild LVH with normal filling pattern 2. Normal cardiac valvular Doppler 3. No gross pericardial effusion Findings Left Ventricle Normal left ventricular size and systolic function. There is mildly increased left ventricular wall thickness. The visually estimated ejection fraction is between 60-65%. Spectral Doppler is indicative of a normal filling pattern. Peak GLS is -17.3%, borderline low. Right Ventricle Normal right ventricular cavity size and systolic function. Atria Both atria are normal in size. There is lipomatous hypertrophy of the interatrial septum. Interatrial shunt cannot be excluded. Aortic Valve The aortic valve structure and function is likely normal. There is no aortic valve stenosis. There is no aortic valve regurgitation. Mitral Valve Likely normal mitral valve structure and function. There is trace mitral valve regurgitation. There is no mitral valve stenosis. Pulmonic Valve The pulmonic valve was not well visualized. Tricuspid Valve Likely normal tricuspid valve structure and function. Tricuspid regurgitation envelope is inadequate for calculation of right ventricular systolic pressure. Normal right atrial pressure. Great Vessels All visible segments of the aorta are normal in size. The pulmonary artery was not well visualized. There is no dilatation of the ascending aorta. Venous The inferior vena cava is normal in size and collapses greater than 50% with inspiration. Pericardium/Pleural There is no evidence of pericardial effusion. Prior Study Comparison No prior study available for comparison. Measurements 2D Linear Measurements IVSd: 1.20 0.6-0.9/0.6-1.0 cm LVIDd: 4.60 3.9-5.3/4.2-5.9 cm LVIDd Index: 2.30 2.4-3.2/2.2-3.1 cm/m2 LVIDs: 2.53 2.0-3.6 cm LVPWd: 1.16 0.7-1.1 cm LA Diam: 3.20 2.7-3.8/3.0-4.0 cm LAIDs Index: 1.60 1.5-2.3 cm/m2 LV Mass: 249.41 67-162/88-224 g LV Mass Index: 124.71 43-95/49-115 g/m2 LVOT Diam: 1.90 3.0+(-)1.3 cm 2D Systolic Function EF 4C: 61.40 >55% EF 2C: 61.50 >55% EF BiP: 61.60 >55% Mitral Valve MV Pk E: 0.98 MV PK A: 0.79 MV Decel Time: 215.00 E/A: 1.20 E'Lateral: 11.10 E'Medial: 9.79 E/E' Med: 10.00 E/E' Lat: 8.80 PHT: 63.00 MVA PHT: 3.49 Decel Hayes: 4.57 Aortic Valve AoV Pk Angel: 1.53 AoV Mn Angel: 1.08 AoV VTI: 0.30 AoV Pk Grad: 9.00 Aov Mn Grad: 5.00 MARCIO Cont.VTI: 2.07 LVOT LVOT Pk Angel: 1.29 LVOT Mn Angel: 0.85 LVOT VTI: 0.22 LVOT Pk Grad: 7.00 LVOT Mn Grad: 3.00 LVOT Diam: 1.90 LVOT Area: 2.84 Diastolic Function MV Pk E: 0.98 MV Pk A: 0.79 E/A: 1.20 E'Medial: 9.79 E/E' Med: 10.00 E' Laterial: 11.10 E/E' Lat: 8.80 Right Ventricle TAPSE (mm): 19.50 TVS' Angel: 10.20 Tricuspid Valve RA Press: 3.00 Great Vessels Aorta Sinus of Valsalva: 3.20 2.0-3.5 cm Ao Asc: 3.10 2.1-3.4 cm Pulmonary Valve PV Pk Angel: 1.11 Peak PV Grad: 5.00 Updated in Other Vendor System with Status of Final Matthew Durham MD electronically signed on 07/21/2023 10:57:57 AM with status of Final
== END ==
LOC: HO.CARD 11:09
PROVIDERS: PCP Internal Medicine; Visit Provider Internal Medicine Pulmonary Disease
DX: R06.09 Other forms of dyspnea (principal)
CPT/HCPCS: 93306; 93356

== ENCOUNTER → 2023-07-20 11:11 | Outpatient (BNV) | payer OTHER, SELFPAY | PROVIDERS: PCP Internal Medicine; Visit Provider Internal Medicine Cardiovascular Disease | DX: R06.09 Other forms of dyspnea (principal) | CPT/HCPCS: 93306 ==

== ENCOUNTER 2023-07-31 10:19 | Outpatient (REF) | payer OTHER, SELFPAY | END 2023-07-31 10:20 | disposition home or self-care (01) | LOC: HO.MDS 10:19 | PROVIDERS: Visit Provider Hospitalist | DX: J45.50 Severe persistent asthma, uncomplicated (principal) | CPT/HCPCS: 96372; J2357 ==

== ENCOUNTER 2023-08-03 11:13 | Outpatient (AMB) | payer OTHER, SELFPAY ==
--- NOTE | 2023-08-03 11:35 | MHC.OFFVIS ---
Intake Vital Signs 08/03/23 11:36 Height 4 ft 11 in Weight 248 lb 0.321 oz BMI 50.1 BP 118/67 Blood Pressure Location Rt brachial Position Sitting Pulse 96 Pulse Source Doppler Pulse Oximetry (%) 97 Oxygen Delivery Method Room Air Intake Visit Reasons: Asthma Allergies No Known Allergies [No Known Allergies*] Allergy (Verified 08/03/23 11:41) HPI Asthma HPI Details 48-year-old lady, active 20 pack-year smoker, followed for severe persistent allergic asthma.? She has been using Xolair, Advair, Incruse, and Combivent with reasonable baseline control.? After the last office visit patient has toe Bumex in her lower extremity edema and orthopnea have recurred. [facility], [facility] Medical History Anemia Asthma Fatty liver Headache Hemorrhoids Hx of renal calculi Seasonal allergies Sleep apnea Vertigo Surgical History History of bilateral tubal ligation Hx of section Hx of colonoscopy Hx of lithotripsy S/P ACL repair Family History Father Prostate cancer Mental health disorder Diabetes High cholesterol Paternal Aunt History of breast cancer Brother Colon cancer, Onset Age: 50 Son Mental health disorder Son Mental health disorder Mother Mental health disorder High cholesterol Diabetes Social History Housing: House Are you a primary complex care nurse practitioner to a significant other at home: No Do you presently have visiting nurse or other home services: No Alcohol intake: current Alcohol intake frequency: holidays/special occasions only Patient Tobacco Use Status: Current everyday Tobacco user Tobacco use type: Cigarette Cigarettes Per Day: 5 Years Smoked: 30 e-Cigarette/Vaping Use: Never Used Current occupational status: employed 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 Gender identity: Female Cognitive needs: No Hearing needs: No Vision needs: No Female Reproductive History Menstrual Age of Menarche: 11 Review of Systems Const Denies daytime sleepiness, Denies excessive sweating, Denies fatigue, Denies fever(s), Denies lethargy, Denies malaise, Denies night sweats, Denies snoring and Denies weight loss Eyes Denies blurry vision and Denies itchy eyes ENT Denies nasal congestion, Denies post nasal drip, Denies sinus pain, Denies sinus pressure and Denies other ( Thrush) Card Denies chest pain, Reports pedal edema, Denies dyspnea, Reports dyspnea on exertion, Denies orthopnea and Denies paroxysmal nocturnal dyspnea Resp Denies cough, Denies hemoptysis, Denies excessive phlegm production, Denies dyspnea, Reports dyspnea on exertion, Denies snoring and Denies wheezing GI Denies abdominal pain and Denies heartburn Musc Denies myalgias, Denies arthralgias and Denies joint swelling Skin/Breast Denies rash Neuro Denies memory loss and Denies seizure-like activity Psych Denies abnormal sleep pattern, Denies anxiety and Denies memory loss Endo Denies excessive sweating, Denies fatigue and Denies heat intolerance Castro/Lymph Denies easy bruising Aller/Immun Denies itchy eyes, Denies seasonal rhinorrhea and Denies wheezing Physical Exam Vital Signs: Last Vital Signs Pulse 96 08/03/23 11:36 BP 118/67 08/03/23 11:36 Pulse Ox 97 08/03/23 11:36 Oxygen Delivery Method Room Air 08/03/23 11:36 BMI result Body Mass Index 50.1 Const General: no acute distress and alert Nutritional Appearance: obese Orientation/consciousness: Other orientation findings ( oriented) HEENT Head: Yes atraumatic Eyes General: appearance normal, both eyes and all related structures Sclerae: sclerae normal EOM: EOMs intact bilaterally Neck Neck: Yes supple Lymphatic: no lymphadenopathy noted Resp Effort & Inspection: normal respiratory effort and no use of accessory muscles Auscultation: clear to auscultation bilaterally Cardio Rate: regular rate Rhythm: regular rhythm Heart sounds: no gallops, no murmurs and no rubs Skin General skin exam: other ( warm) Extrem General: No clubbing, No cyanosis and Yes edema (1+ bilateral) Assessment & Plan Assessment & Plan (1) Severe persistent asthma: Code(s): J45.50 - Severe persistent asthma, uncomplicated Qualifiers: Asthma complication type: uncomplicated Qualified Code(s): J45.50 - Severe persistent asthma, uncomplicated Plan: Well controlled on current regimen of Xolair, Advair, Combivent, and albuterol MDI. Continue current regimen. (2) Environmental allergies: Code(s): Z91.09 - Other allergy status, other than to drugs and biological substances Plan: Well controlled on Xolair. Continue current regimen. (3) BARNES (dyspnea on exertion): Code(s): R06.09 - Other forms of dyspnea Plan: With recurrent of lower extremity edema and orthopnea after stopping Bumex. Restart Bumex at 0.5 mg daily. Medications: Refilled bumetanide 0.5 mg PO DAILY 30 days 30 tabs 6RF Coding Level of Care Code Est Pt Level 4 (07553) Diagnoses Severe persistent asthma without complication J45.50 Asthma complication type: uncomplicated Environmental allergies Z91.09 BARNES (dyspnea on exertion) R06.09
[2023-08-03 11:36] VITALS: BP 118/67; PULSE 96; O2SAT 97; BMI 50.1
== END 2023-08-03 11:52 | disposition home or self-care (01) ==
PROVIDERS: PCP Internal Medicine; Visit Provider Internal Medicine Pulmonary Disease
DX: J45.50 Severe persistent asthma, uncomplicated (principal); Z91.09 Other allergy status, other than to drugs and biological substances; R06.09 Other forms of dyspnea
CPT/HCPCS: 99214

== ENCOUNTER → 2023-08-03 11:13 | Outpatient (BNVA) | payer OTHER, SELFPAY | PROVIDERS: PCP Internal Medicine; Visit Provider Internal Medicine Pulmonary Disease | DX: J45.50 Severe persistent asthma, uncomplicated (principal); Z91.09 Other allergy status, other than to drugs and biological substances; R06.09 Other forms of dyspnea | CPT/HCPCS: 99212 ==

== ENCOUNTER 2023-08-14 09:29 | Outpatient (REF) | payer OTHER, SELFPAY | END 2023-08-14 09:30 | disposition home or self-care (01) | LOC: HO.MDS 09:29 | PROVIDERS: Visit Provider Hospitalist | DX: J45.50 Severe persistent asthma, uncomplicated (principal) | CPT/HCPCS: 96372; J2357 ==

== ENCOUNTER 2023-09-11 10:05 | Outpatient (AMB) | payer OTHER, SELFPAY ==
[2023-09-11 10:07] VITALS: BP 142/64; PULSE 104; O2SAT 97; BMI 49.9
--- NOTE | 2023-09-11 10:07 | A.OFFVIS_ITS ---
Intake Vital Signs 09/11/23 10:07 Height 4 ft 11 in Weight 246 lb 14.684 oz BMI 49.9 BP 142/64 H Blood Pressure Location Rt brachial Position Sitting Pulse 104 H Pulse Source Doppler Pulse Oximetry (%) 97 Oxygen Delivery Method Room Air Intake Visit Reasons: Asthma Allergies No Known Allergies [No Known Allergies*] Allergy (Verified 09/11/23 10:11) HPI Asthma HPI Details 48-year-old lady, active 20 pack-year sm laurie, followed for severe persistent allergic asthma.? She has been using Xolair, Advair, Incruse, and Combivent now with worsening control of her symptoms. She continues on Bumex as needed for lower extremity edema. Patient did have recent COVID, but now has recovered to baseline. She does complain of a cough productive of yellowish sputum after recent COVID infection. [facility] Medical History Anemia Asthma Fatty liver Headache Hemorrhoids Hx of renal calculi Seasonal allergies Sleep apnea Vertigo Surgical History History of bilateral tubal ligation Hx of section Hx of colonoscopy Hx of lithotripsy S/P ACL repair Family History Father Prostate cancer Mental health disorder Diabetes High cholesterol Paternal Aunt History of breast cancer Brother Colon cancer, Onset Age: 50 Son Mental health disorder Son Mental health disorder Mother Mental health disorder High cholesterol Diabetes Social History Housing: House Are you a primary lpn care manager to a significant other at home: No Do you presently have visiting nurse or other home services: No Alcohol intake: current Alcohol intake frequency: holidays/special occasions only Patient Tobacco Use Status: Current everyday Tobacco user Tobacco use type: Cigarette Cigarettes Per Day: 5 Years Smoked: 30 e-Cigarette/Vaping Use: Never Used Current occupational status: employed 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 Gender identity: Female Cognitive needs: No Hearing needs: No Vision needs: No Female Reproductive History Menstrual Age of Menarche: 11 Review of Systems Const Denies daytime sleepiness, Denies excessive sweating, Denies fatigue, Denies fever(s), Denies lethargy, Denies malaise, Denies night sweats, Denies snoring and Denies weight loss Eyes Denies blurry vision and Denies itchy eyes ENT Denies nasal congestion, Denies post nasal drip, Denies sinus pain, Denies sinus pressure and Denies other ( Thrush) Card Denies chest pain, Denies pedal edema, Denies dyspnea, Denies orthopnea and Denies paroxysmal nocturnal dyspnea Resp Reports cough, Denies hemoptysis, Reports excessive phlegm production, Denies dyspnea, Denies snoring and Denies wheezing GI Denies abdominal pain and Denies heartburn Musc Denies myalgias, Denies arthralgias and Denies joint swelling Skin/Breast Denies rash Neuro Denies memory loss and Denies seizure-like activity Psych Denies abnormal sleep pattern, Denies anxiety and Denies memory loss Endo Denies excessive sweating, Denies fatigue and Denies heat intolerance Castro/Lymph Denies easy bruising Aller/Immun Denies itchy eyes, Denies seasonal rhinorrhea and Denies wheezing Physical Exam Vital Signs: Last Vital Signs Pulse 104 H 09/11/23 10:07 BP 142/64 H 09/11/23 10:07 Pulse Ox 97 09/11/23 10:07 Oxygen Delivery Method Room Air 09/11/23 10:07 BMI result Body Mass Index 49.9 Const General: no acute distress and alert Nutritional Appearance: not obese Orientation/consciousness: Other orientation findings ( oriented) HEENT Head: Yes atraumatic Eyes General: appearance normal, both eyes and all related structures Sclerae: sclerae normal EOM: EOMs intact bilaterally Neck Neck: Yes supple Lymphatic: no lymphadenopathy noted Resp Effort & Inspection: normal respiratory effort and no use of accessory muscles Auscultation: clear to auscultation bilaterally Cardio Rate: regular rate Rhythm: regular rhythm Heart sounds: no gallops, no murmurs and no rubs Skin General skin exam: other ( warm) Extrem General: No clubbing, No cyanosis and No edema Assessment & Plan Assessment & Plan (1) BARNES (dyspnea on exertion): Code(s): R06.09 - Other forms of dyspnea Plan: Well controlled on as needed Bumex 0.5 mg. Continue current regimen. (2) Severe persistent asthma: Code(s): J45.50 - Severe persistent asthma, uncomplicated Qualifiers: Asthma complication type: uncomplicated Qualified Code(s): J45.50 - Severe persistent asthma, uncomplicated Plan: Now worsening control on Xolair, changed to Dupixent. Continue Advair, duo nebs, and albuterol MDI. Will treat bronchitic exacerbation with a course of azithromycin. (3) Environmental allergies: Code(s): Z91.09 - Other allergy status, other than to drugs and biological substances Plan: Worsening control on Xolair, will change Dupixent. Medications: New azithromycin For 250 mg dose pack: take 500 mg today (day 1), then 250 mg for 4 days (days 2-5) PO 6 tabs 0RF Coding Level of Care Code Est Pt Level 4 (85209) Diagnoses BARNES (dyspnea on exertion) R06.09 Severe persistent asthma without complication J45.50 Asthma complication type: uncomplicated Environmental allergies Z91.09
== END 2023-09-11 10:23 | disposition home or self-care (01) ==
PROVIDERS: PCP Internal Medicine; Visit Provider Internal Medicine Pulmonary Disease
DX: R06.09 Other forms of dyspnea (principal); J45.50 Severe persistent asthma, uncomplicated; Z91.09 Other allergy status, other than to drugs and biological substances
CPT/HCPCS: 99214

== ENCOUNTER → 2023-09-11 10:05 | Outpatient (BNVA) | payer OTHER, SELFPAY | PROVIDERS: PCP Internal Medicine; Visit Provider Internal Medicine Pulmonary Disease | DX: J45.50 Severe persistent asthma, uncomplicated (principal); R06.09 Other forms of dyspnea; Z91.09 Other allergy status, other than to drugs and biological substances | CPT/HCPCS: 99212 ==

== ENCOUNTER 2023-09-13 13:15 | Outpatient (REF) | payer OTHER, SELFPAY | END 2023-09-13 13:16 | disposition home or self-care (01) | LOC: HO.MDS 13:15 | PROVIDERS: Visit Provider Hospitalist | DX: J45.50 Severe persistent asthma, uncomplicated (principal) | CPT/HCPCS: 96372; J2357 ==

== ENCOUNTER 2023-09-26 11:01 | Outpatient (AMB) | payer OTHER, SELFPAY ==
[2023-09-26 14:43] VITALS: BP 110/60; PULSE 99; O2SAT 96
--- NOTE | 2023-09-26 14:43 | MHC.OFFVIS ---
Intake Vital Signs 09/26/23 14:43 Weight 246 lb 14.684 oz BP 110/60 Blood Pressure Location Lt brachial Position Sitting Pulse 99 Pulse Source Pulse Oximeter Pulse Oximetry (%) 96 Oxygen Delivery Method Room Air Intake Visit Reasons: dupixent teaching Allergies No Known Allergies [No Known Allergies*] Allergy (Verified 09/26/23 14:44) Medication List - Last Reconciled 09/26/23 by Kanwal Cabral LPN albuterol sulfate 2.5 mg (3 mL) inhalation Q8H PRN albuterol sulfate 90 mcg/actuation (Ventolin HFA) 2 puffs inhalation Q4-6H PRN azithromycin For 250 mg dose pack: take 500 mg today (day 1), then 250 mg for 4 days (days 2-5) PO bumetanide 0.5 mg PO DAILY 30 days cholecalciferol (vitamin D3) 25 mcg PO DAILY 90 days cyanocobalamin (vitamin B-12) 1,000 mcg PO DAILY 90 days dupilumab (Dupixent) 300 mg (2 mL) subcut Q2W 28 days epinephrine 1 mL IM DIRECTED ferrous sulfate 324 mg PO BID 90 days fluticasone propion-salmeterol 115-21 mcg/actuation (Advair HFA) 2 inhalations inhalation BID hydrocortisone 2.5% (Proctosol HC) 1 appl VT BID-QID PRN ipratropium-albuterol 20-100 mcg/actuation (Combivent Respimat) 1 puff PO QID methylcellulose (laxative) (Citrucel) 500 mg PO DAILY montelukast 10 mg PO DAILY HPI dupixent teaching HPI Details Kayleigh is here for a Dupixent teach she was educated on hand washing, injection preparation, administration, and disposal.?Kayleigh was able to return demonstrate proper technique for hand washing, injection preparation, administration and disposal of needle and states she has no questions at this time. Medication Dupixent 300mg/2mL pre-filled pen (patient?s own meds) Loading dose of 600mg given by the patient in 2 SQ injections; injection #1 L abdomen ;? injection #2 R abdomen? Lot# [id number] expires 06/23/2025. Patient aware her next injection is in 15 days. Nurse visit only.? [facility] Medical History Anemia Asthma Fatty liver Headache Hemorrhoids Hx of renal calculi Seasonal allergies Sleep apnea Vertigo Surgical History History of bilateral tubal ligation Hx of section Hx of colonoscopy Hx of lithotripsy S/P ACL repair Family History Father Prostate cancer Mental health disorder Diabetes High cholesterol Paternal Aunt History of breast cancer Brother Colon cancer, Onset Age: 50 Son Mental health disorder Son Mental health disorder Mother Mental health disorder High cholesterol Diabetes Social History Housing: House Are you a primary infant caregiver to a significant other at home: No Do you presently have visiting nurse or other home services: No Alcohol intake: current Alcohol intake frequency: holidays/special occasions only Patient Tobacco Use Status: Current everyday Tobacco user Tobacco use type: Cigarette Cigarettes Per Day: 5 Years Smoked: 30 e-Cigarette/Vaping Use: Never Used Current occupational status: employed 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 Gender identity: Female Cognitive needs: No Hearing needs: No Vision needs: No Female Reproductive History Menstrual Age of Menarche: 11 Physical Exam Vital Signs: Last Vital Signs Pulse 99 09/26/23 14:43 BP 110/60 09/26/23 14:43 Pulse Ox 96 09/26/23 14:43 Oxygen Delivery Method Room Air 09/26/23 14:43 Assessment & Plan Assessment & Plan (1) Severe persistent asthma: Code(s): J45.50 - Severe persistent asthma, uncomplicated Qualifiers: Asthma complication type: uncomplicated Qualified Code(s): J45.50 - Severe persistent asthma, uncomplicated Plan: Dupixent teaching Coding Level of Care Code Established Pt Est Pt Level 1 (00561) Patient Type Established Diagnoses Severe persistent asthma without complication J45.50 Asthma complication type: uncomplicated Comment NURSE VISIT ONLY
== END 2023-09-26 14:58 | disposition home or self-care (01) ==
PROVIDERS: PCP Internal Medicine; Visit Provider Internal Medicine Pulmonary Disease
DX: J45.50 Severe persistent asthma, uncomplicated (principal)

== ENCOUNTER → 2023-09-26 11:01 | Outpatient (BNVA) | payer OTHER, SELFPAY | PROVIDERS: PCP Internal Medicine; Visit Provider Internal Medicine Pulmonary Disease | DX: J45.50 Severe persistent asthma, uncomplicated (principal) | CPT/HCPCS: 99211 ==

== ENCOUNTER 2023-10-17 11:41 | Outpatient (REF) | payer OTHER, SELFPAY ==
[2023-10-17 13:37] LABS: MANUAL DIFF FLAG NO
[2023-10-17 14:16] LABS: Basophils Percent Auto 0.4 % (0-2); Eosinophils Absolute Auto 0.2 X10*3/uL (0.0-0.4); Eosinophils Percent Auto 2.8 % (0-4); Hematocrit 35.8 % (37.0-47.0); Hemoglobin 10.2 g/dl (12.0-16.0); Imm Gran Abs Auto 0.02 X10*3/uL (0.00-0.03); Imm Gran Pct Auto 0.3 % (0.0-0.4); Lymphocytes Absolute Auto 1.6 X10*3/uL (1.2-4.9); Lymphocytes Percent Auto 23.4 % (20-40); Mean Corpuscular HGB Conc 28.5 g/dl (31.0-35.0); Mean Corpuscular Hemoglobin 22.8 pg (27.0-33.0); Mean Corpuscular Volume 80.1 fL (80.0-98.0); Mean Platelet Volume 8.2 fL (9.4-12.3); Monocytes Absolute Auto 0.5 X10*3/uL (0.1-1.2); Monocytes Percent Auto 6.9 % (2-11); Neutrophils Absolute Auto 4.4 x10*3/uL (2.0-8.3); Neutrophils Percent Auto 66.2 % (45-73); Platelet Count 550 X10*3/uL (160-400); Red Blood Count 4.47 X10*6/uL (4.20-5.50); Red Cell Distribution Width 19.6 % (11.0-16.0); White Blood Count 6.7 X10*3/uL (4.8-10.8)
[2023-10-17 14:27] LABS: Alanine Aminotransferase 27 U/L (0-31); Albumin Level 4.1 g/dL (3.5-5.0); Alkaline Phosphatase 113 U/L (39-117); Anion Gap 11 (12-20); Aspartate Amino Transferase 16 U/L (5-31); Bilirubin Total 0.2 mg/dL (0.0-1.0); Blood Urea Nitrogen 9 mg/dL (9-16); Calcium 9.1 mg/dL (8.4-10.2); Carbon Dioxide 24 mmol/L (22-29); Chloride 108 mmol/L (96-108); Estimated Glomerular Filt Rate > 60; Glucose Random 93 mg/dL (60-115); Potassium 3.8 mmol/L (3.3-5.1); Sodium 139 mmol/L (135-145); Total Protein 7.1 g/dL (6.5-8.0)
[2023-10-17 14:30] LABS: Ferritin 9 ng/mL (10-250)
[2023-10-17 14:42] LABS: Vitamin B12 597 pg/mL (200-900)
[2023-10-22 14:18] LABS: Vitamin D 25-OH, D2 <4 ng/mL; Vitamin D 25-OH, D3 16 ng/mL; Vitamin D 25-OH, Total 16 ng/mL (30-100)
== END 2023-10-17 11:42 | disposition home or self-care (01) ==
LOC: HO.HMGCLDS 11:41
PROVIDERS: PCP Internal Medicine; Visit Provider Internal Medicine
DX: E66.01 Morbid (severe) obesity due to excess calories (principal); E55.9 Vitamin D deficiency, unspecified; E53.8 Deficiency of other specified B group vitamins; D50.9 Iron deficiency anemia, unspecified; M19.90 Unspecified osteoarthritis, unspecified site; R52 Pain, unspecified
CPT/HCPCS: 36415; 80053; 82306; 82607; 82728; 85025

== ENCOUNTER 2023-10-19 13:42 | Outpatient (AMB) | payer OTHER, SELFPAY ==
[2023-10-19 13:45] VITALS: BP 104/54; PULSE 93; O2SAT 95; BMI 50.1
--- NOTE | 2023-10-19 13:45 | A.OFFPC_ITS ---
Vital Signs 10/19/23 13:45 Height 4 ft 11 in Weight 248 lb 4 oz BMI 50.1 BP 104/54 L Blood Pressure Location Rt brachial Position Sitting Pulse 93 Pulse Source Pulse Oximeter Pulse Oximetry (%) 95 Oxygen Delivery Method Room Air Intake Visit Reasons: 3 month fu Allergies No Known Allergies [No Known Allergies*] Allergy (Verified 10/19/23 13:45) Medication List - Last Reconciled 10/19/23 by Sanna Marina MD albuterol sulfate 2.5 mg (3 mL) inhalation Q8H PRN albuterol sulfate 90 mcg/actuation (Ventolin HFA) 2 puffs inhalation Q4-6H PRN bumetanide 0.5 mg PO DAILY 30 days cholecalciferol (vitamin D3) 25 mcg PO DAILY 90 days cyanocobalamin (vitamin B-12) 1,000 mcg PO DAILY 90 days dupilumab (Dupixent) 300 mg (2 mL) subcut Q2W 28 days epinephrine 1 mL IM DIRECTED ferrous sulfate 324 mg PO BID 90 days fluticasone propion-salmeterol 115-21 mcg/actuation (Advair HFA) 2 inhalations inhalation BID ipratropium-albuterol 20-100 mcg/actuation (Combivent Respimat) 1 puff PO QID montelukast 10 mg PO DAILY Tobacco use date assessed: 10/19/23 Dental Screening Dental Screen Date: 10/19/23 Did you have a dental visit in the last 12 months?: Yes Did you have a dental problem in the last 6 months where you did not have access to dental care?: No Was dental information given to patient?: Patient has dentist HPI 3 month fu HPI Details Patient is a 48-year-old female came in today for follow-up appointment She had labs done recently her hemoglobin has gone down again to 10.2 with microcytic indices Patient is taking iron once a day I have told her to start taking it 2 times a day. Patient continued to have dysfunctional uterine bleeding which is heavy at times Continued to have whole-body pain I have placed a referral for her to see teacher of the deaf/hard of hearing for that She has started using the CPAP machine for the past 1 month, patient says that she wake up with headache in the middle of the night She has an appointment with Neurology in 1 month meanwhile I have sent amitripty line 10 mg to take at night She does have a history of migraine headaches as well Patient is seeing credit support specialist for the management of asthma Allergies are stable with long-acting antihistamine and montelukast. Patient is morbidly obese and having difficulty losing weight. She will have labs done in 3 months and then we will set up another time to talk about it. [facility] Medical History Fatty liver Hemorrhoids Headache Sleep apnea Anemia Hx of renal calculi Seasonal allergies Asthma Vertigo Surgical History Hx of lithotripsy Hx of colonoscopy History of bilateral tubal ligation Hx of section S/P ACL repair Family History Father Prostate cancer Mental health disorder Diabetes High cholesterol Paternal Aunt History of breast cancer Brother Colon cancer, Onset Age: 50 Son Mental health disorder Son Mental health disorder Mother Mental health disorder High cholesterol Diabetes Social History Housing: House Are you a primary career services manager to a significant other at home: No Do you presently have visiting nurse or other home services: No Alcohol intake: current Alcohol intake frequency: holidays/special occasions only Patient Tobacco Use Status: Current everyday Tobacco user Tobacco use type: Cigarette Cigarettes Per Day: 5 Years Smoked: 30 Packs per year/per ci.50 e-Cigarette/Vaping Use: Never Used service: No Current occupational status: employed 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 How often do you have a drink containing alcohol?: Never 3. How often do you have six or more drinks on one occasion?: Never Total Score: 0 Score Reviewed/Action Taken: No GEOVANNA-7 AMB Questionnaire GEOVANNA-7 Date GEOVANNA - 7 assessed: 05/23/23 Source: Developed by Drs. Dc Marsh, Lakeisha Holley, Willem Cummings and colleagues, with an educational ade from [employer]. Review of Systems Const Denies chills and Denies fever(s) ENT Denies epistaxis and Denies nasal discharge Card Denies chest pain Resp Denies chest congestion, Denies cough and Denies hemoptysis GI Denies diarrhea and Denies nausea Skin/Breast Denies rash Neuro Reports no additional complaints Psych Reports no additional complaints Endo Reports no additional complaints Physical exam (Primary Care) Vital Signs: Last Vital Signs Pulse 93 10/19/23 13:45 BP 104/54 L 10/19/23 13:45 Pulse Ox 95 10/19/23 13:45 Oxygen Delivery Method Room Air 10/19/23 13:45 BMI result Body Mass Index 50.1 Tobacco/Smoking Status: Tobacco use Status Tobacco use date assessed 10/19/23 10/19/23 13:48 Patient Tobacco Use Status Current everyday Tobacco 10/19/23 13:48 Tobacco use type Cigarette 10/19/23 13:48 e-Cigarette/Vaping Use Never Used 10/19/23 13:48 Thrive Assessment: Date of Thrive Assessment Date Thrive assessed 01/04/22 10/19/23 13:48 Const General: cooperative, comfortable and no acute distress Orientation/consciousness: patient oriented x3 HENMT Head: Yes normocephalic Eyes General: appearance normal, both eyes and all related structures Neck Neck: Yes supple Resp Effort & Inspection: normal respiratory effort, no cough and no stridor Cardio Rhythm: regular rhythm Heart sounds: S1 normal heart sound present and S2 normal heart sound present Skin General skin exam: turgor normal Neuro General: patient oriented x3, tone normal and moves all extremities Extrem Right lower extremity: no edema Left lower extremity: no edema Assessment and Plan Assessment & Plan (1) Anemia, iron deficiency: Code(s): D50.9 - Iron deficiency anemia, unspecified Qualifiers: Iron deficiency anemia type: chronic blood loss Qualified Code(s): D50.0 - Iron deficiency anemia secondary to blood loss (chronic) (2) Whole body pain: Code(s): R52 - Pain, unspecified (3) Arthrosis: Code(s): M19.90 - Unspecified osteoarthritis, unspecified site (4) Morbid obesity due to excess calories: Code(s): E66.01 - Morbid (severe) obesity due to excess calories (5) SUSAN (obstructive sleep apnea): Comment: Severe degree of sleep apnea. AHI was 51/hr and oxygen jose was 76% Code(s): G47.33 - Obstructive sleep apnea (adult) (pediatric) (6) Severe persistent asthma: Code(s): J45.50 - Severe persistent asthma, uncomplicated Qualifiers: Asthma complication type: uncomplicated Qualified Code(s): J45.50 - Severe persistent asthma, uncomplicated (7) Environmental allergies: Code(s): Z91.09 - Other allergy status, other than to drugs and biological substances Plan Patient is a 48-year-old female came in today for follow-up appointment She had labs done recently her hemoglobin has gone down again to 10.2 with microcytic indices Patient is taking iron once a day I have told her to start taking it 2 times a day. Patient continued to have dysfunctional uterine bleeding which is heavy at times Continued to have whole-body pain I have placed a referral for her to see teacher of the deaf/hard of hearing for that She has started using the CPAP machine for the past 1 month, patient says that she wake up with headache in the middle of the night She has an appointment with Neurology in 1 month meanwhile I have sent amitriptyline 10 mg to take at night She does have a history of migraine headaches as well Patient is seeing credit support specialist for the management of asthma Allergies are stable with long-acting antihistamine and montelukast. Patient is morbidly obese and having difficulty losing weight. She will have labs done in 3 months and then we will set up another time to talk about it. Orders: Orders Complete Blood Count Auto Diff 3 Months D50.9 - Iron deficiency anemia, unspecified Ferritin 3 Months D50.9 - Iron deficiency anemia, unspecified Referrals Rheumatology Referral R52 - Pain, unspecified Medications: New amitriptyline 10 mg PO BEDTIME 30 tabs 0RF Coding Level of Care Code Est Pt Level 4 (87058) Diagnoses Iron deficiency anemia due to chronic blood loss D50.0 Iron deficiency anemia type: chronic blood loss Whole body pain R52 Arthrosis M19.90 Morbid obesity due to excess calories E66.01 SUSAN (obstructive sleep apnea) G47.33 Severe persistent asthma without complication J45.50 Asthma complication type: uncomplicated Environmental allergies Z91.09
== END 2023-10-19 15:54 | disposition home or self-care (01) ==
PROVIDERS: PCP Internal Medicine; Visit Provider Internal Medicine
DX: D50.0 Iron deficiency anemia secondary to blood loss (chronic) (principal); E66.01 Morbid (severe) obesity due to excess calories; J45.50 Severe persistent asthma, uncomplicated; Z68.43 Body mass index [BMI] 50.0-59.9, adult; M19.90 Unspecified osteoarthritis, unspecified site; R52 Pain, unspecified; G47.33 Obstructive sleep apnea (adult) (pediatric); Z91.09 Other allergy status, other than to drugs and biological substances
CPT/HCPCS: 99214

== ENCOUNTER 2023-11-07 11:18 | Outpatient (AMB) | payer OTHER, SELFPAY ==
--- NOTE | 2023-11-07 11:20 | MHC.OFFVIS ---
Intake Vital Signs 11/07/23 11:21 Height 4 ft 11 in Weight 248 lb 0.321 oz BMI 50.1 BP 111/67 Blood Pressure Location Rt brachial Position Sitting Pulse 86 Pulse Source Doppler Pulse Oximetry (%) 97 Oxygen Delivery Method Room Air Intake Visit Reasons: Asthma Allergies No Known Allergies [No Known Allergies*] Allergy (Verified 11/07/23 11:25) HPI Asthma HPI Details 48-year-old lady, active 20 pack-year smoker, followed for severe persistent allergic asthma.? She has been using Dupixent, Advair, Incruse, and Combivent now with significant improvement in her symptoms. She continues on Bumex as needed for lower extremity edema. [facility] Medical History Fatty liver Hemorrhoids Headache Sleep apnea Anemia Hx of renal calculi Seasonal allergies Asthma Vertigo Surgical History Hx of lithotripsy Hx of colonoscopy History of bilateral tubal ligation Hx of section S/P ACL repair Family History Father Prostate cancer Mental health disorder Diabetes High cholesterol Paternal Aunt History of breast cancer Brother Colon cancer, Onset Age: 50 Son Mental health disorder Son Mental health disorder Mother Mental health disorder High cholesterol Diabetes Social History Housing: House Are you a primary out of school hours care worker to a significant other at home: No Do you presently have visiting nurse or other home services: No Alcohol intake: current Alcohol intake frequency: holidays/special occasions only Patient Tobacco Use Status: Current everyday Tobacco user Tobacco use type: Cigarette Cigarettes Per Day: 5 Years Smoked: 30 e-Cigarette/Vaping Use: Never Used service: No Current occupational status: employed 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 Gender identity: Female Cognitive needs: No Hearing needs: No Vision needs: No Female Reproductive History Menstrual Age of Menarche: 11 Review of Systems Const Denies daytime sleepiness, Denies excessive sweating, Denies fatigue, Denies fever(s), Denies lethargy, Denies malaise, Denies night sweats, Denies snoring and Denies weight loss Eyes Denies blurry vision and Denies itchy eyes ENT Denies nasal congestion, Denies post nasal drip, Denies sinus pain, Denies sinus pressure and Denies other ( Thrush) Card Denies chest pain, Denies pedal edema, Denies dyspnea, Denies orthopnea and Denies paroxysmal nocturnal dyspnea Resp Denies cough, Denies hemoptysis, Denies excessive phlegm production, Denies dyspnea, Denies snoring and Denies wheezing GI Denies abdominal pain and Denies heartburn Musc Denies myalgias, Denies arthralgias and Denies joint swelling Skin/Breast Denies rash Neuro Denies memory loss and Denies seizure-like activity Psych Denies abnormal sleep pattern, Denies anxiety and Denies memory loss Endo Denies excessive sweating, Denies fatigue and Denies heat intolerance Castro/Lymph Denies easy bruising Aller/Immun Denies itchy eyes, Denies seasonal rhinorrhea and Denies wheezing Physical Exam Vital Signs: Last Vital Signs Pulse 86 11/07/23 11:21 BP 111/67 11/07/23 11:21 Pulse Ox 97 11/07/23 11:21 Oxygen Delivery Method Room Air 11/07/23 11:21 BMI result Body Mass Index 50.1 Const General: no acute distress and alert Nutritional Appearance: obese Orientation/consciousness: Other orientation findings ( oriented) HEENT Head: Yes atraumatic Eyes General: appearance normal, both eyes and all related structures Sclerae: sclerae normal EOM: EOMs intact bilaterally Neck Neck: Yes supple Lymphatic: no lymphadenopathy noted Resp Effort & Inspection: normal respiratory effort and no use of accessory muscles Auscultation: clear to auscultation bilaterally Cardio Rate: regular rate Rhythm: regular rhythm Heart sounds: no gallops, no murmurs and no rubs Skin General skin exam: other ( warm) Extrem General: No clubbing, No cyanosis and No edema Assessment & Plan Assessment & Plan (1) Severe persistent asthma: Code(s): J45.50 - Severe persistent asthma, uncomplicated Qualifiers: Asthma complication type: uncomplicated Qualified Code(s): J45.50 - Severe persistent asthma, uncomplicated Plan: Now well controlled on Dupixent, Advair, Duonebs, and albuterol MDI. Continue current regimen. (2) Environmental allergies: Code(s): Z91.09 - Other allergy status, other than to drugs and biological substances Plan: Significantly improved control on Dupixent. Continue current regimen. (3) BARNES (dyspnea on exertion): Code(s): R06.09 - Other forms of dyspnea Plan: Well controlled on as needed Bumex. Continue current regimen. Coding Level of Care Code Est Pt Level 4 (56841) Diagnoses Severe persistent asthma without complication J45.50 Asthma complication type: uncomplicated Environmental allergies Z91.09 BARNES (dyspnea on exertion) R06.09
[2023-11-07 11:21] VITALS: BP 111/67; PULSE 86; O2SAT 97; BMI 50.1
== END 2023-11-07 11:36 | disposition home or self-care (01) ==
PROVIDERS: PCP Internal Medicine; Visit Provider Internal Medicine Pulmonary Disease
DX: J45.50 Severe persistent asthma, uncomplicated (principal); Z91.09 Other allergy status, other than to drugs and biological substances; R06.09 Other forms of dyspnea
CPT/HCPCS: 99214

== ENCOUNTER → 2023-11-07 11:18 | Outpatient (BNVA) | payer OTHER, SELFPAY | PROVIDERS: PCP Internal Medicine; Visit Provider Internal Medicine Pulmonary Disease | DX: J45.50 Severe persistent asthma, uncomplicated (principal); Z91.09 Other allergy status, other than to drugs and biological substances; R06.09 Other forms of dyspnea | CPT/HCPCS: 99212 ==

== ENCOUNTER 2023-11-09 10:39 | Outpatient (AMB) | payer OTHER, SELFPAY ==
--- NOTE | 2023-11-09 10:40 | A.OFFVIS_ITS ---
Intake Vital Signs 11/09/23 10:49 Height 4 ft 11 in Weight 244 lb BMI 49.3 BP 120/70 Blood Pressure Location Lt brachial Position Sitting Pulse 94 Pulse Source Pulse Oximeter Pulse Oximetry (%) 97 Oxygen Delivery Method Room Air Intake Visit Reasons: 4m follow up SUSAN/ Confirmed Intake Note: Patient presents for 4 month f/u SUSAN. while using machine it triggers her asthma and she thinks the smell of rubber might trigger her astma as well. Feels pressure levels might need to be changed. Getting migraines during the night. Allergies No Known Allergies [No Known Allergies*] Allergy (Verified 11/09/23 10:48) HPI HPI Comments History of Present Illness Details 48 y/o female patient presents for follo w up of sleep study. The home sleep study result was significant for a severe degree of sleep apnea. The AHI was 50/hr and oxygen jose was 76%. Pt underwent titration study and her breathing and oxygenation stabilized on CPAP [id number]. CPAP at [id number] ordered, but her current CPAP setting is APAP [id number]. Pt is not compliant with CPAP now, she felt the pressure is too high, can't sleep with it. [facility] Medical History Fatty liver Hemorrhoids Headache Sleep apnea Anemia Hx of renal calculi Seasonal allergies Asthma Vertigo Surgical History Hx of lithotripsy Hx of colonoscopy History of bilateral tubal ligation Hx of section S/P ACL repair Family History Father Prostate cancer Mental health disorder Diabetes High cholesterol Paternal Aunt History of breast cancer Brother Colon cancer, Onset Age: 50 Son Mental health disorder Son Mental health disorder Mother Mental health disorder High cholesterol Diabetes Social History Housing: House Are you a primary healthcare business analyst to a significant other at home: No Do you presently have visiting nurse or other home services: No Alcohol intake: current Alcohol intake frequency: holidays/special occasions only Patient Tobacco Use Status: Current everyday Tobacco user Tobacco use type: Cigarette Cigarettes Per Day: 5 Years Smoked: 30 e-Cigarette/Vaping Use: Never Used service: No Current occupational status: employed 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 Gender identity: Female Cognitive needs: No Hearing needs: No Vision needs: No Female Reproductive History Menstrual Age of Menarche: 11 Review of Systems Const All systems reviewed & are unremarkable except as noted in HPI and below ENT Reports Normal hearing present Neuro Reports Normal hearing present Physical Exam Vital Signs: Last Vital Signs Pulse 94 11/09/23 10:49 BP 120/70 11/09/23 10:49 Pulse Ox 97 11/09/23 10:49 Oxygen Delivery Method Room Air 11/09/23 10:49 BMI result Body Mass Index 49.3 Const General: cooperative Nutritional Appearance: obese Orientation/consciousness: patient oriented x3 Limitations: no limitations Resp Effort & Inspection: normal respiratory effort and able to speak in complete sentences Neuro General: patient oriented x3, gait normal and moves all extremities Cranial nerves: Yes Normal facial strength present, Yes Midline tongue present, Yes Symmetric palate elevation present, Yes Normal hearing present, Yes Ability to bilaterally rotate head present and Yes Ability to bilaterally elevate shoulders present Cognition (Neuro): normal cognition Gait exam (Neuro): Normal gait present Motor exam (neuro): 5/5 motor strength present throughout, Pronator motor function not present and no tremor noted Psych Appearance: grossly normal Mental Status: mental status grossly normal Speech and movement: Normal speech and movement present Affect: normal affect Attitude: cooperative Assessment & Plan Assessment & Plan (1) SUSAN (obstructive sleep apnea): Comment: Severe degree of sleep apnea. AHI was 51/hr and oxygen jose was 76% Code(s): G47.33 - Obstructive sleep apnea (adult) (pediatric) Plan Sent new CPAP prescription to change the pressure to [id number]. Stressed compliance, use CPAP nighlty and more than 4hrs. Wt reduction advised. Coding Level of Care Code Est Pt Level 3 (51914) Diagnoses SUSAN (obstructive sleep apnea) G47.33
[2023-11-09 10:49] VITALS: BP 120/70; PULSE 94; O2SAT 97; BMI 49.3
== END 2023-11-09 11:12 | disposition home or self-care (01) ==
PROVIDERS: PCP Internal Medicine; Visit Provider Nurse Practitioner Family
DX: G47.33 Obstructive sleep apnea (adult) (pediatric) (principal)
CPT/HCPCS: 99213

== ENCOUNTER → 2023-11-09 10:39 | Outpatient (BNVA) | payer OTHER, SELFPAY | PROVIDERS: PCP Internal Medicine; Visit Provider Nurse Practitioner Family | DX: G47.33 Obstructive sleep apnea (adult) (pediatric) (principal) | CPT/HCPCS: 99212 ==

== ENCOUNTER 2023-12-19 11:02 | Outpatient (AMB) | payer OTHER, SELFPAY ==
[2023-12-19 11:12] VITALS: BP 112/64; PULSE 90; O2SAT 97; BMI 49.0
--- NOTE | 2023-12-19 11:12 | A.OFFVIS_ITS ---
Intake Vital Signs 12/19/23 11:12 Height 4 ft 11 in Weight 242 lb 11.663 oz BMI 49.0 BP 112/64 Blood Pressure Location Rt brachial Position Sitting Pulse 90 Pulse Source Pulse Oximeter Pulse Oximetry (%) 97 Oxygen Delivery Method Room Air Intake Visit Reasons: Whole-body pain/CONFIRMED Intake Note: New pt presents today for consult. C/o pain everywhere. States the pain is sharp and it feels like Tendinitis. Prescribed amitriptyline by PCP but has not started this medication. States she does not like to take meds. Regional Safety Manager Required: No Accompanied by: Self / Same As Patient Allergies No Known Allergies [No Known Allergies*] Allergy (Verified 12/19/23 11:13) Medication List - Last Reconciled 12/19/23 by Danielle Coats MD albuterol sulfate 2.5 mg (3 mL) inhalation Q8H PRN albuterol sulfate 90 mcg/actuation (Ventolin HFA) 2 puffs inhalation Q4-6H PRN bumetanide 0.5 mg PO DAILY 30 days cholecalciferol (vitamin D3) 25 mcg PO DAILY 90 days cyanocobalamin (vitamin B-12) 1,000 mcg PO DAILY 90 days dupilumab (Dupixent) 300 mg (2 mL) subcut Q2W 28 days epinephrine 1 mL IM DIRECTED ferrous sulfate 324 mg PO BID 90 days fluticasone propion-salmeterol 115-21 mcg/actuation (Advair HFA) 2 inhalations inhalation BID ipratropium-albuterol 20-100 mcg/actuation (Combivent Respimat) 1 puff PO QID montelukast 10 mg PO DAILY HPI HPI Comments History of Present Illness Details 48-year-old female presents for evaluati on of whole body pain. She states that over the last year she has been having diffuse pain, the pain is in her thighs, forearms, muscles, joints, she has pain on the outside of both hips when sleeping on her side at night. She has pain when g by another person. She is unaware of any family history of an autoimmune rheumatic disease. She has history of sleep apnea but has difficulty keeping the mask on at night. She states that she has 2 children with mental health disorders and she has gone to therapy over the years in order to be able to deal with it she does not go to therapy currently [facility] Medical History Fatty liver Hemorrhoids Headache Sleep apnea Anemia Hx of renal calculi Seasonal allergies Asthma Vertigo Surgical History Hx of lithotripsy Hx of colonoscopy History of bilateral tubal ligation Hx of section S/P ACL repair Family History Father Prostate cancer Mental health disorder Diabetes High cholesterol Paternal Aunt History of breast cancer Brother Colon cancer, Onset Age: 50 Fibromyalgia Son Mental health disorder Son Mental health disorder Mother Mental health disorder High cholesterol Diabetes Social History Housing: House Are you a primary home care specialist to a significant other at home: No Do you presently have visiting nurse or other home services: No Alcohol intake: current Alcohol intake frequency: holidays/special occasions only Patient Tobacco Use Status: Current everyday Tobacco user Tobacco use type: Cigarette Cigarettes Per Day: 5 Years Smoked: 30 e-Cigarette/Vaping Use: Never Used service: No Current occupational status: employed 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 Gender identity: Female Cognitive needs: No Hearing needs: No Vision needs: No Female Reproductive History Menstrual Age of Menarche: 11 Total pregnancies: 3 Full term: 2 Ab induced: 1 Review of Systems Const Reports headache(s) and Reports weight loss ENT Reports dizziness, Reports dry mouth, Reports headache(s) and Reports tinnitus Card Reports dyspnea Resp Reports dyspnea and Reports wheezing GI Reports constipation Reports nocturia Musc Reports arthralgias, Reports joint swelling and Reports muscle weakness Neuro Reports dizziness and Reports headache(s) Endo Reports polydipsia Aller/Immun Reports wheezing Physical Exam Vital Signs: Last Vital Signs Pulse 90 12/19/23 11:12 BP 112/64 12/19/23 11:12 Pulse Ox 97 12/19/23 11:12 Oxygen Delivery Method Room Air 12/19/23 11:12 BMI result Body Mass Index 49.0 Const General: cooperative, healthy appearing and comfortable Nutritional Appearance: obese morbidly obese Orientation/consciousness: patient oriented x3 Limitations: no limitations HEENT Head: Yes normocephalic and Yes atraumatic Resp Effort & Inspection: normal respiratory effort and able to speak in complete sentences Auscultation: clear to auscultation bilaterally Skin General skin exam: no rashes or lesions noted Neuro General: patient oriented x3 Extrem Other: Bilateral trochanteric bursa area tenderness with negative Nabil's test Few fibromyalgia tender points No active synovitis Normal nailfold capillaroscopy Assessment & Plan Assessment & Plan (1) Whole body pain: Code(s): R52 - Pain, unspecified Plan: 48-year-old female presents for evaluation of diffuse pain. I do not see any evidence of an autoimmune rheumatic disease upon my evaluation. Clinical picture rather consistent with fibromyalgia Discussed management of fibromyalgia with patient. Is a noninflammatory, non- autoimmune central afferent processing disorder leading to a diffuse pain syndrome. I suggested that patient try to address her underlying psychiatric issues, anxiety/depression. I suggested evaluation by a therapist and/or a psychiatrist. Advised patient to use her CPAP regularly. Try to follow sleep hygiene practices. Patient would benefit from increased physical activity, either through formal physical therapy or by joining a gym. Advised patient that she should start activity slowly and increase as tolerated. Consider low-impact exercises such as walking, swimming, aqua therapy stretching, yoga. Follow-up with PCP (2) Greater trochanteric bursitis of both hips: Code(s): M70.61 - Trochanteric bursitis, right hip; M70.62 - Trochanteric bursitis, left hip Plan: I provided patient with a printout of home exercises. Plan I spent 24 minutes reviewing patient's chart, evaluating patient, counseling patient and documenting in the chart Coding Level of Care Code New Pt Level 3 (27490) Diagnoses Whole body pain R52 Greater trochanteric bursitis of both hips M70.61; M70.62
== END 2023-12-19 11:46 | disposition home or self-care (01) ==
PROVIDERS: PCP Internal Medicine; Visit Provider Student in an Organized Health Care Education/Training Program
DX: R52 Pain, unspecified (principal); M70.61 Trochanteric bursitis, right hip; M70.62 Trochanteric bursitis, left hip
CPT/HCPCS: 99203

== ENCOUNTER → 2023-12-19 11:02 | Outpatient (BNVA) | payer OTHER, SELFPAY | PROVIDERS: PCP Internal Medicine; Visit Provider Student in an Organized Health Care Education/Training Program | DX: R52 Pain, unspecified (principal); M70.61 Trochanteric bursitis, right hip; M70.62 Trochanteric bursitis, left hip | CPT/HCPCS: 99202 ==

== ENCOUNTER → 2024-01-23 11:30 | Outpatient (BNV) | payer OTHER, SELFPAY | PROVIDERS: PCP Internal Medicine; Visit Provider Radiology Diagnostic Radiology | DX: Z12.31 Encounter for screening mammogram for malignant neoplasm of breast (principal) | CPT/HCPCS: 77063; 77067 ==

== ENCOUNTER 2024-01-23 11:32 | Outpatient (REF) | payer OTHER, SELFPAY | END 2024-01-23 11:33 | disposition home or self-care (01) | LOC: HO.MAMMO 11:32 | PROVIDERS: PCP Internal Medicine; Visit Provider Internal Medicine | DX: Z12.31 Encounter for screening mammogram for malignant neoplasm of breast (principal) | CPT/HCPCS: 77063; 77067 ==

== ENCOUNTER 2024-05-07 11:11 | Outpatient (AMB) | payer OTHER, SELFPAY ==
[2024-05-07 11:12] VITALS: BP 122/76; PULSE 98; O2SAT 98; BMI 47.4
--- NOTE | 2024-05-07 11:12 | MHC.OFFVIS ---
Vital Signs 05/07/24 11:12 Height 4 ft 11 in Weight 234 lb 12.677 oz BMI 47.4 BP 122/76 Blood Pressure Location Rt brachial Position Sitting Pulse 98 Pulse Oximetry (%) 98 Oxygen Delivery Method Room Air Intake Visit Reasons: Asthma Allergies No Known Allergies [No Known Allergies*] Allergy (Verified 05/07/24 11:18) HPI HPI Asthma: Details: 49-year-old lady, active 20 pack-year smoker, followed for severe persistent allergic asthma.? She has been using Dupixent, Advair, Incruse, and Combivent now with good control of her symptoms. She continues on Bumex as needed for lower extremity edema. She denies any recent exacerbations. Continues to intentional lose weight, now over 20 lb. [facility] Medical History Fatty liver Hemorrhoids Headache Sleep apnea Anemia Hx of renal calculi Seasonal allergies Asthma Vertigo Surgical History Hx of lithotripsy Hx of colonoscopy History of bilateral tubal ligation Hx of section S/P ACL repair Family History Father Prostate cancer Mental health disorder Diabetes High cholesterol Paternal Aunt History of breast cancer Brother Colon cancer, Onset Age: 50 Fibromyalgia Son Mental health disorder Son Mental health disorder Mother Mental health disorder High cholesterol Diabetes Social History Housing: House Are you a primary pharmacy care coordinator to a significant other at home: No Do you presently have visiting nurse or other home services: No Alcohol intake: current Alcohol intake frequency: holidays/special occasions only Patient Tobacco Use Status: Current everyday Tobacco user Tobacco use type: Cigarette Cigarettes Per Day: 5 Years Smoked: 30 e-Cigarette/Vaping Use: Never Used service: No Current occupational status: employed 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 Gender identity: Female Cognitive needs: No Hearing needs: No Vision needs: No Female Reproductive History Menstrual Age of Menarche: 11 Review of Systems Const Denies daytime sleepiness, Denies excessive sweating, Denies fatigue, Denies fever(s), Denies lethargy, Denies malaise, Denies night sweats, Denies snoring and Denies weight loss Eyes Denies blurry vision and Denies itchy eyes ENT Denies nasal congestion, Denies post nasal drip, Denies sinus pain, Denies sinus pressure and Denies other ( Thrush) Card Denies chest pain, Denies pedal edema, Denies dyspnea, Denies orthopnea and Denies paroxysmal nocturnal dyspnea Resp Denies cough, Denies hemoptysis, Denies excessive phlegm production, Denies dyspnea, Denies snoring and Denies wheezing GI Denies abdominal pain and Denies heartburn Musc Denies myalgias, Denies arthralgias and Denies joint swelling Skin/Breast Denies rash Neuro Denies memory loss and Denies seizure-like activity Psych Denies abnormal sleep pattern, Denies anxiety and Denies memory loss Endo Denies excessive sweating, Denies fatigue and Denies heat intolerance Castro/Lymph Denies easy bruising Aller/Immun Denies itchy eyes, Denies seasonal rhinorrhea and Denies wheezing Physical Exam Vital Signs: Last Vital Signs Pulse 98 05/07/24 11:12 BP 122/76 05/07/24 11:12 Pulse Ox 98 05/07/24 11:12 Oxygen Delivery Method Room Air 05/07/24 11:12 BMI result Body Mass Index 47.4 Const General: no acute distress and alert Nutritional Appearance: obese Orientation/consciousness: Other orientation findings ( oriented) HEENT Head: Yes atraumatic Eyes General: appearance normal, both eyes and all related structures Sclerae: sclerae normal EOM: EOMs intact bilaterally Neck Neck: Yes supple Lymphatic: no lymphadenopathy noted Resp Effort & Inspection: normal respiratory effort and no use of accessory muscles Auscultation: clear to auscultation bilaterally Cardio Rate: regular rate Rhythm: regular rhythm Heart sounds: no gallops, no murmurs and no rubs Skin General skin exam: other ( warm) Extrem General: No clubbing, No cyanosis and No edema Assessment & Plan Assessment & Plan (1) Severe persistent asthma: Code(s): J45.50 - Severe persistent asthma, uncomplicated Category: Medical Qualifiers: Asthma complication type: uncomplicated Qualified Code(s): J45.50 - Severe persistent asthma, uncomplicated Plan: Well controlled on Dupixent, Advair, Combivent, and albuterol MDI/nebs. Continue current regimen. (2) Obstructive sleep apnea on CPAP: Code(s): G47.33 - Obstructive sleep apnea (adult) (pediatric); Z99.89 - Dependence on other enabling machines and devices Category: Medical Plan: Well controlled on current CPAP therapy. Continue CPAP therapy. (3) Environmental allergies: Code(s): Z91.09 - Other allergy status, other than to drugs and biological substances Category: Medical Plan: Well controlled on Dupixent and Singulair. Continue current regimen. (4) BARNES (dyspnea on exertion): Code(s): R06.09 - Other forms of dyspnea Category: Medical Plan: Well controlled on as needed at Bumex 0.5 mg. Continue current regimen. Coding Level of Care Code Est Pt Level 4 (02719) Complex EM visit Add On G2211 Diagnoses Severe persistent asthma without complication J45.50 Asthma complication type: uncomplicated Obstructive sleep apnea on CPAP G47.33; Z99.89 Environmental allergies Z91.09 BARNES (dyspnea on exertion) R06.09
== END 2024-05-07 11:31 | disposition home or self-care (01) ==
PROVIDERS: PCP Internal Medicine; Visit Provider Internal Medicine Pulmonary Disease
DX: J45.50 Severe persistent asthma, uncomplicated (principal); G47.33 Obstructive sleep apnea (adult) (pediatric); Z99.89 Dependence on other enabling machines and devices; Z91.09 Other allergy status, other than to drugs and biological substances; R06.09 Other forms of dyspnea
CPT/HCPCS: 99214; G2211

== ENCOUNTER → 2024-05-07 11:11 | Outpatient (BNVA) | payer OTHER, SELFPAY | PROVIDERS: PCP Internal Medicine; Visit Provider Internal Medicine Pulmonary Disease | DX: J45.50 Severe persistent asthma, uncomplicated (principal); R06.09 Other forms of dyspnea; G47.33 Obstructive sleep apnea (adult) (pediatric); F17.210 Nicotine dependence, cigarettes, uncomplicated; Z99.89 Dependence on other enabling machines and devices; Z91.09 Other allergy status, other than to drugs and biological substances | CPT/HCPCS: 99212 ==

== ENCOUNTER 2024-05-22 13:16 | Outpatient (AMB) | payer OTHER, SELFPAY ==
--- NOTE | 2024-05-22 13:24 | A.OFFVIS_ITS ---
Vital Signs 05/22/24 13:25 Height 41 ft Weight 234 lb BMI 0.7 Intake Visit Reasons: 3 month FU Intake Note: Patient presents for 3 month follow up Allergies No Known Allergies [No Known Allergies*] Allergy (Verified 05/22/24 13:25) Medication List - Last Reconciled 05/22/24 by MANUEL Cao albuterol sulfate 2.5 mg (3 mL) inhalation Q8H PRN albuterol sulfate 90 mcg/actuation (Ventolin HFA) 2 puffs inhalation Q4-6H PRN bumetanide 0.5 mg PO DAILY 30 days cholecalciferol (vitamin D3) 25 mcg PO DAILY 90 days cyanocobalamin (vitamin B-12) 1,000 mcg PO DAILY 90 days dupilumab (Dupixent) 300 mg (2 mL) subcut Q2W 28 days epinephrine 1 mL IM DIRECTED ferrous sulfate 324 mg PO BID 90 days fluticasone propion-salmeterol 115-21 mcg/actuation (Advair HFA) 2 inhalations inhalation BID ipratropium-albuterol 20-100 mcg/actuation (Combivent Respimat) 1 puff PO QID montelukast 10 mg PO DAILY HPI Comments Details: 49-yr-old female presents for follow-up visit of sleep apnea. Pt reports she has not been able to tolerate CPAP, as she cannot sleep with a mask on. She wonders however, if her sleep apnea is as severe as was seen on her last HST w/ AHI 50/hr. As when she had the HST, she was having constant difficulty breathing and her wt was 250lbs. Since, however, her asthma and resp tx regimen has been adjusted and she is now breathing much better. She no longer has phlegm obstructions in her throat. Her weight has decreased to 234 lbs. She is able to walk and talk much easier now. She is now sleeping better and waking up more res rohini. She is no longer falling asleep when inactive. She is no longer having migraines. Her menses has been less heavy- she feels she has entered into anyi-menopause. She has stopped her po iron supplement as it was causing constipation, and started eating more high iron foods, such as liver. She denies restless leg s/s. [facility] Medical History Fatty liver Hemorrhoids Headache Sleep apnea Anemia Hx of renal calculi Seasonal allergies Asthma Vertigo Surgical History Hx of lithotripsy Hx of colonoscopy History of bilateral tubal ligation Hx of section S/P ACL repair Family History Father Prostate cancer Mental health disorder Diabetes High cholesterol Paternal Aunt History of breast cancer Brother Colon cancer, Onset Age: 50 Fibromyalgia Son Mental health disorder Son Mental health disorder Mother Mental health disorder High cholesterol Diabetes Social History Housing: House Are you a primary skin care instructor to a significant other at home: No Do you presently have visiting nurse or other home services: No Alcohol intake: current Alcohol intake frequency: holidays/special occasions only Patient Tobacco Use Status: Current everyday Tobacco user Tobacco use type: Cigarette Cigarettes Per Day: 5 Years Smoked: 30 e-Cigarette/Vaping Use: Never Used service: No Current occupational status: employed 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 Gender identity: Female Cognitive needs: No Hearing needs: No Vision needs: No Female Reproductive History Menstrual Age of Menarche: 11 Physical Exam Vital Signs: BMI result Body Mass Index 0.7 Const General: no acute distress Orientation/consciousness: patient oriented x3 HEENT Other: Mallampati stage Resp Effort & Inspection: normal respiratory effort and able to speak in complete sen tences Neuro General: patient oriented x3 Psych Mental Status: mental status grossly normal Speech and movement: Clear speech present Attitude: cooperative Assessment & Plan Assessment & Plan (1) SUSAN (obstructive sleep apnea): Comment: Severe degree of sleep apnea. AHI was 51/hr and oxygen jose was 76% Code(s): G47.33 - Obstructive sleep apnea (adult) (pediatric) Category: Medical (2) Severe persistent asthma: Code(s): J45.50 - Severe persistent asthma, uncomplicated Category: Medical Qualifiers: Asthma complication type: uncomplicated Qualified Code(s): J45.50 - Severe persistent asthma, uncomplicated Plan Pt is advised to undergo f/u in-lab PSG to assess status of her sleep apnea, as she has had reduction in daytime sleepiness in setting of weight loss as well as marked improvement in her respiratory and asthma s/s, to determine whether or not pt still has a severe degree of sleep apnea. If she no longer has severe sleep apnea, we could consider alternate treatments for her sleep apnea tx. At this time, pt would not be a candidate for Inspire Tx. Encouraged pt to continue weight loss strategies, smaller portions, healthy meals, increasing dietary iron intake. Orders: Orders RT PSG in-lab sleep study Today G47.33 - Obstructive sleep apnea (adult) (pediatric), J45.50 - Severe persistent asthma, uncomplicated Coding Level of Care Code Est Pt Level 3 (19806) Diagnoses SUSAN (obstructive sleep apnea) G47.33 Severe persistent asthma without complication J45.50 Asthma complication type: uncomplicated
== END 2024-05-22 14:11 | disposition home or self-care (01) ==
PROVIDERS: PCP Internal Medicine; Visit Provider Nurse Practitioner Family
DX: G47.33 Obstructive sleep apnea (adult) (pediatric) (principal); J45.50 Severe persistent asthma, uncomplicated
CPT/HCPCS: 99213

== ENCOUNTER → 2024-05-22 13:16 | Outpatient (BNVA) | payer OTHER, SELFPAY | PROVIDERS: PCP Internal Medicine; Visit Provider Nurse Practitioner Family | DX: G47.33 Obstructive sleep apnea (adult) (pediatric) (principal); J45.50 Severe persistent asthma, uncomplicated | CPT/HCPCS: 99212 ==

== ENCOUNTER → 2024-07-04 20:30 | Outpatient (REF) | payer OTHER, SELFPAY | LOC: HO.SL 20:30 | PROVIDERS: PCP Internal Medicine; Visit Provider Nurse Practitioner Family | DX: G47.33 Obstructive sleep apnea (adult) (pediatric) (principal); J45.50 Severe persistent asthma, uncomplicated | CPT/HCPCS: 95810 ==

== ENCOUNTER → 2024-07-04 22:02 | Outpatient (BNV) | payer OTHER, SELFPAY | PROVIDERS: PCP Internal Medicine; Visit Provider Psychiatry & Neurology Neurology | DX: G47.33 Obstructive sleep apnea (adult) (pediatric) (principal) | CPT/HCPCS: 95810 ==

== ENCOUNTER 2024-12-04 11:20 | Outpatient (AMB) | payer OTHER, SELFPAY ==
[2024-12-04 11:22] VITALS: BP 142/84; PULSE 111; O2SAT 98; BMI 48.1
--- NOTE | 2024-12-04 11:22 | MHC.OFFVIS ---
Vital Signs 12/04/24 11:22 Height 4 ft 11 in Weight 238 lb BMI 48.1 BP 142/84 H Blood Pressure Location Rt brachial Position Sitting Pulse 111 H Pulse Source Doppler Pulse Oximetry (%) 98 Oxygen Delivery Method Room Air Intake Visit Reasons: Asthma Allergies No Known Allergies [No Known Allergies*] Allergy (Verified 12/04/24 11:29) HPI HPI Asthma: Details: 49-year-old lady, active 20 pack-year smoker, followed for severe persistent allergic asthma.? She has been using Dupixent, Advair, Incruse, and Combivent with good control of her symptoms. She continues on Bumex as needed for lower extremity edema. She denies any recent exacerbations. She has been suboptimally compliant with her CPAP therapy. Patient does complain intermittent episodes of choking on liquids. [facility] Medical History Fatty liver Hemorrhoids Headache Sleep apnea Anemia Hx of renal calculi Seasonal allergies Asthma Vertigo Surgical History Hx of lithotripsy Hx of colonoscopy History of bilateral tubal ligation Hx of section S/P ACL repair Family History Father Prostate cancer Mental health disorder Diabetes High cholesterol Paternal Aunt History of breast cancer Brother Colon cancer, Onset Age: 50 Fibromyalgia Son Mental health disorder Son Mental health disorder Mother Mental health disorder High cholesterol Diabetes Social History Housing: House Are you a primary director of career resources to a significant other at home: No Do you presently have visiting nurse or other home services: No Alcohol intake: current Alcohol intake frequency: holidays/special occasions only Patient Tobacco Use Status: Current everyday Tobacco user Tobacco use type: Cigarette Cigarettes Per Day: 5 Years Smoked: 30 e-Cigarette/Vaping Use: Never Used service: No Current occupational status: employed 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 identity: Female Cognitive needs: No Hearing needs: No Vision needs: No Female Reproductive History Menstrual Age of Menarche: 11 Review of Systems Const Denies daytime sleepiness, Denies excessive sweating, Denies fatigue, Denies fever(s), Denies lethargy, Denies malaise, Denies night sweats, Denies snoring and Denies weight loss Eyes Denies blurry vision and Denies itchy eyes ENT Denies nasal congestion, Denies post nasal drip, Denies sinus pain, Denies sinus pressure and Denies other ( Thrush) Card Denies chest pain, Denies pedal edema, Denies dyspnea, Denies orthopnea and Denies paroxysmal nocturnal dyspnea Resp Denies cough, Denies hemoptysis, Denies excessive phlegm production, Denies dyspnea, Denies snoring and Denies wheezing GI Denies abdominal pain and Denies heartburn Musc Denies myalgias, Denies arthralgias and Denies joint swelling Skin/Breast Denies rash Neuro Denies memory loss and Denies seizure-like activity Psych Denies abnormal sleep pattern, Denies anxiety and Denies memory loss Endo Denies excessive sweating, Denies fatigue and Denies heat intolerance Castro/Lymph Denies easy bruising Aller/Immun Denies itchy eyes, Denies seasonal rhinorrhea and Denies wheezing Physical Exam Vital Signs: Last Vital Signs Pulse 111 H 12/04/24 11:22 BP 142/84 H 12/04/24 11:22 Pulse Ox 98 12/04/24 11:22 Oxygen Delivery Method Room Air 12/04/24 11:22 BMI result Body Mass Index 48.1 Const General: no acute distress and alert Nutritional Appearance: obese Orientation/consciousness: Other orientation findings ( oriented) HEENT Head: Yes atraumatic Eyes General: appearance normal, both eyes and all related structures Sclerae: sclerae normal EOM: EOMs intact bilaterally Neck Neck: Yes supple Lymphatic: no lymphadenopathy noted Resp Effort & Inspection: normal respiratory effort and no use of accessory muscles Auscultation: clear to auscultation bilaterally Cardio Rate: regular rate Rhythm: regular rhythm Heart sounds: no gallops, no murmurs and no rubs Skin General skin exam: other ( warm) Extrem General: No clubbing, No cyanosis and No edema Assessment & Plan Assessment & Plan (1) Severe persistent asthma: Code(s): J45.50 - Severe persistent asthma, uncomplicated Category: Medical Qualifiers: Asthma complication type: uncomplicated Qualified Code(s): J45.50 - Severe persistent asthma, uncomplicated Plan: well controlled on current regimen of Dupixent, Advair, Combivent, and albuterol MDI/ nebs. Continue current regimen. (2) SUSAN (obstructive sleep apnea): Comment: Severe degree of sleep apnea. AHI was 51/hr and oxygen jose was 76% Code(s): G47.33 - Obstructive sleep apnea (adult) (pediatric) Category: Medical Plan: Suboptimally compliant with CPAP therapy. Patient has been advised to be more compliant with CPAP therapy. (3) Environmental allergies: Code(s): Z91.09 - Other allergy status, other than to drugs and biological substances Category: Medical Plan: Well controlled on Dupixent. Continue current regimen. (4) BARNES (dyspnea on exertion): Code(s): R06.09 - Other forms of dyspnea Category: Medical Plan: Orthopnea lower extremity edema well controlled on as needed bumetanide 0.5 mg daily. Continue current regimen. (5) Pulmonary aspiration: Code(s): T17.900A - Unspecified foreign body in respiratory tract, part unspecified causing asphyxiation, initial encounter Category: Medical Plan: With liquids only, will obtain modified barium swallow. Orders: Orders [place] Modified Barium Swallow Today T17.900A - Unspecified foreign body in respiratory tract, part unspecified causing asphyxiation, initial encounter Coding Level of Care Code Est Pt Level 4 (94054) Complex EM visit Add On G2211 Diagnoses Severe persistent asthma without complication J45.50 Asthma complication type: uncomplicated SUSAN (obstructive sleep apnea) G47.33 Environmental allergies Z91.09 BARNES (dyspnea on exertion) R06.09 Pulmonary aspiration T17.900A
--- OUTSIDE RECORDS SUMMARY | 2024-12-04 14:42 | XMS_ITS | Clinical Summary ---
Author Organization [employer] Address [address] [place] [address] 7 [place] [address] Care Team Providers Care Color Paste Mixing Supervisor Name Role Phone Unavailable Primary Care Provider Unavailabl e Social History Tobacco Use Types Packs/Day Years Used Date Smoking Tobacco: Never Assessed Comments Unknown Sex and Gender Information Value Date Recorded Sex Assigned at Female 07/24/2022 10:24 AM EDT Legal Sex Female 10:24 AM EDT Gender Identity Female 07/24/2022 10:24 AM EDT Sexual Orientation Straight 07/24/2022 10 :24 AM EDT Plan of Treatment Health Maintenance Due Date Last Done Comments CT Colonography 1973 Colonoscopy 1973 Colorectal Cancer Screening 1973 Depression Screening 1973 FIT DNA/Cologuard 1973 FIT 1973 FOBT 1973 Sigmoidoscopy 1973 Alcohol/Substance Use Screening 1985 Tobacco Screening 1985 Family Planning (PISQ) 02/27/1988 DTaP/Tdap/Td Vaccines (1 - Tdap) 02/27/1992 Hepatitis B Vaccines (1 of 3 - 19+ 3-dose series) 02/27/1992 Pap Smear 1994 Cervical Cancer Screening 2003 HPV/Cotest 2003 Mammogram 2013 Pneumococcal Vaccine: 50+ Ye ars (1 of 1 - PCV) 2023 Zoster Vaccines (1 of 2) 2023 COVID-19 Vaccine ( - 2023-2 5 season) 2024 Influenza Vaccine (#1) 2024 RSV Patients and Pa tients Aged 60 years or older (1 - 1-dose 75+ series) 02/27/2048 HIB Vaccines Aged Out No longer eligi ble based on patient's age to complete this topic HPV Vaccines Aged Out No longer eligi ble based on patient's age to complete this topic Hepatitis A Vaccines Aged Out No long er eligible based on patient's age to complete this topic IPV Vaccines Aged Out No longer eligi ble based on patient's age to complete this topic Meningococcal Vaccine Aged Out No kiera valerio eligible based on patient's age to complete this topic Pneumococcal Vaccine: Pediat rics (0 to 5 Years) and At-Risk Patients (6 to 49) Years) Aged Out No longer eligible b ased on patient's age to complete this topic RSV under 20 months Aged Out No longe r eligible based on patient's age to complete this topic Rotavirus Vaccines Aged Out No longer eligible based on patient's age to complete this topic
--- OUTSIDE RECORDS SUMMARY | 2024-12-04 14:42 | XMS_ITS | Encounter Summary ---
Author Organization [employer] Address [address] [place] [address] [address] [address] Care Team Providers Care Private Security Guard Name Role Phone Unavailable Primary Care Provider Unavailabl e Encounter Details Date Type Department Care Team (Latest Contact Info) Description 10/15/2018 Abstract [facility] CONVERSIONS Dental, Provider, DDS Social History Tobacco Use Types Packs/Day Years Used Date Smoking Tobacco: Never Assessed Comments Unknown Sex and Gender Information Value Date Recorded Sex Assigned at Female 07/24/2022 10:24 AM EDT Legal Sex Female 10:24 AM EDT Gender Identity Female 07/24/2022 10:24 AM EDT Sexual Orientation Straight 07/24/2022 10 :24 AM EDT documented as of this encounter Plan of Treatment Not on file documented as of this encounter Visit Diagnoses Not on filedocumented in this encounter
== END 2024-12-04 11:43 | disposition home or self-care (01) ==
LOC: HO.HPS 11:21
PROVIDERS: PCP Internal Medicine; Visit Provider Internal Medicine Pulmonary Disease
DX: J45.50 Severe persistent asthma, uncomplicated (principal); G47.33 Obstructive sleep apnea (adult) (pediatric); Z91.09 Other allergy status, other than to drugs and biological substances; R06.09 Other forms of dyspnea; T17.900A Unspecified foreign body in respiratory tract, part unspecified causing asphyxiation, initial encounter
CPT/HCPCS: 99214; G2211

== ENCOUNTER → 2024-12-04 11:20 | Outpatient (BNVA) | payer OTHER, SELFPAY | PROVIDERS: PCP Internal Medicine; Visit Provider Internal Medicine Pulmonary Disease | DX: J45.50 Severe persistent asthma, uncomplicated (principal); G47.33 Obstructive sleep apnea (adult) (pediatric); R06.09 Other forms of dyspnea; F17.210 Nicotine dependence, cigarettes, uncomplicated; T17.900A Unspecified foreign body in respiratory tract, part unspecified causing asphyxiation, initial encounter; X58.XXXA Exposure to other specified factors, initial encounter; Y93.9 Activity, unspecified; Y92.9 Unspecified place or not applicable; Y99.9 Unspecified external cause status; Z99.89 Dependence on other enabling machines and devices; Z91.09 Other allergy status, other than to drugs and biological substances; Z79.899 Other long term (current) drug therapy | CPT/HCPCS: 99212 ==

== ENCOUNTER 2025-02-17 14:28 | Outpatient (REF) | payer OTHER, SELFPAY ==
--- NOTE | ~2025-02-17 | FL_ITS ---
EXAMINATION: Modified Barium Swallow CLINICAL INFORMATION: Dysphagia. COMPARISON: None. TECHNIQUE: Modified barium swallow was performed under lateral fluoroscopy with patient in standing position. Barium mixed with solids and liquids of different consistencies was administered by the speech pathologist. Examination was recorded in the fluoroscopy suite. FINDINGS: Transient laryngeal penetration was noted on thin liquids. No glottic or subglottic aspiration was noted. FLUOROSCOPY TIME: 50 seconds Number of Spot Images: N/A DOSE AREA PRODUCT: 637.9 uGy-m2 (microgray-meter squared) FL/FL Modified Barium Swallow IMPRESSION: Transient laryngeal penetration on thin liquids. No subglottic aspiration was noted. Refer to the speech therapy report for further clarification Electronically signed by: Deniz Rendon MD 02/17/2025 03:41 PM EDT RP
--- OUTSIDE RECORDS SUMMARY | 2025-02-17 14:30 | XMS_ITS | Clinical Summary ---
Author Organization [employer] Address [address] [place] [address] [address] [place] [address] Care Team Providers Care Telephone Lineworker Name Role Phone Unavailable Primary Care Provider [...] 1973 FIT 1973 FOBT 1973 Sigmoidoscopy 1973 Disability Screening 1973 Alcohol/Substance Use Screening 1985 Tobacco Screening [...] patient's age to complete this topic Meningococcal B Vaccine Aged Out No l onger eligible based on patient's age to complete [...]
--- NOTE | 2025-02-18 13:39 | MHC.SL.IMP ---
Date of Plan of Treatment: 02/17/25 Onset of Symptoms/Illness: 02/18/24 Date Treatment Started: 02/17/25 Admitting Diagnosis: Asthma Primary Speech & Language Diagnosis: R13.13 Pharyngeal Phase Dysphagia Reason for Today's Visit: 30027 Modified Barium Swallow Study Pre-evaluation Dietary Consistencies: Regular Pre-evaluation Liquid Consistency: Thin Pre-evaluation Medication Administration: Whole with Liquid Medical History: Modified Barium Swallow Study Fluoroscopic Evaluation of Swallowing Function CPT Code 26503 Evaluation Year: 2024 Reason for Study: Difficulty swallowing Referring Physician: Chetan Oscar MD Evaluating Clinician: Magaly Baker MA, CCC-REGIONAL ECONOMIST Study Number: 1 Patient Name: Kayleigh Rivero Status: Outpatient, Ambulatory Age: 49 Sex: Female Medical History Medical History Fatty liver Hemorrhoids Headache Sleep apnea Anemia Hx of renal calculi Seasonal allergies Asthma Vertigo Surgical History Hx of lithotripsy Hx of colonoscopy History of bilateral tubal ligation Hx of section S/P ACL repair Current (pre-evaluation) Intake/Diet: Route: PO Diet Grade: Regular Liquid Consistencies: Thin Pre-Study Functional Oral Intake Scale (FOIS): 7- Total oral intake with no restrictions Pain: None reported at time of study SUBJECTIVE: Patient is a 49 year old female followed by Pulmonology for severe persistent allergic asthma. When recently seen by Dr. Oscar, patient reported intermittent episodes of choking on liquids, and was referred for a modified barium swallow study to further assess for pharyngeal dysphagia. Patient reports onset of swallow difficulty 1 year ago, which initially occurred every few months, then progressively occurred more often. Patient reports she has been more active in order to lose weight and has not had an episode in approximately 6 weeks. She denies globus sensation and odynophagia and has no trouble swallowing solids. Oral Motor Exam Facial Symmetry: Symmetrical Mouth Occlusion: Normal Oral-Facial Teeth Characteristics: Intact/Normal Oral-Facial Lip Pucker Description: Normal Oral-Facial Smile (Lips) Description: Normal Oral-Facial Puff Cheeks Description: Normal Tongue Size: Normal Tongue Excursion Description: Normal Tongue Range of Movement Description: Normal Tongue Speed of Movement Description: Normal Tongue Strength of Movement (against opposing pressure): Normal Tongue Movement Characteristics: Normal/Absent Is patient able to manage secretions?: Yes Is patient able to produce volitional cough?: Yes Food and Liquid Trials: Oral Impairment: Lip Closure: 0=No labial escape Oral Impairment: Tongue Control During Bolus Hold: 0=Cohesive bolus between tongue to palatal seal Oral Impairment: Bolus Preparation/Mastication: 0=Timely and efficient chewing and mashing Oral Impairment: Bolus Transport/Lingual Motion: 1= Delayed initiation of tongue motion Oral Impairment: Oral Residue: 1=Trace residue lining oral structures Oral Impairment:Initiation of Pharyngeal Swallow: 3=Bolus head in pyriforms Pharyngeal Impairment: Soft Palate Elevation: 0=No bolus between soft palate (SP)/pharyngeal wall (PW) Pharyngeal Impairment: Laryngeal Elevation: 1=Partial thyroid cartilage/arytenoids to epiglottic petiole movement Pharyngeal Impairment: Anterior Hyoid Excursion: 1=Partial anterior movement Pharyngeal Impairment: Epiglottic Movement: 1=Partial inversion Pharyngeal Impairment: Laryngeal Vestibular Closure:: 1=Incomplete: narrow column air/contrast in laryngeal vestibule Pharyngeal Impairment: Pharyngeal Stripping Wave: 0=Present: complete Pharyngeal Impairment: Pharyngeal Contraction: Did not test Pharyngeal Impairment: Pharyngoesophageal Segment Openin=Complete distension and complete duration: no obstruction of flow Pharyngeal Impairment: Tongue Base (TB) Retraction: 0=No contrast between tongue base and posterior pharyngeal wall Pharyngeal Impairment: Pharyngeal Residue: 1=Trace residue within or on pharyngeal structures Pharyngeal Impairment: Esophageal Clearance Upright Position: Did not test Impressions and Recommendations OBJECTIVE: Time-out: performed at 15:00 Evaluation Start: 14:30; Stop: 14:35 Patient Positioning: Standing Viewing Planes: LATERAL ONLY Contrast: MBSImP? Standardized Protocol using commercially prepared, standardized Barium viscosities, including: Varibar? THIN LIQUID (40% w/v, <15 cps) , Varibar? PUDDING (40% w/v, <1735-6857 cps) , 1/2 Shortbread Cookie (1 x1 x.25 ) MBSImP ID: [id number] MBSImP Results: Lip closure for intraoral bolus containment resulted in no labial escape. Tongue control during bolus hold maintained a cohesive bolus held between tongue to palate seal. Bolus preparation and mastication resulted in timely and efficient chewing and mashing. Bolus transport/lingual motion demonstrated delayed initiation of tongue motion. Oral residue was a trace, lining oral structures. Initiation of the pharyngeal swallow occurred when the bolus head was in the pyriform sinuses. Soft palate elevation resulted in no bolus between the soft palate and the pharyngeal wall. Laryngeal elevation was decreased, with partial superior movement of the thyroid cartilage/partial approximation of the arytenoids to the epiglottic petiole. Anterior hyoid excursion demonstrated partial anterior movement. Epiglottic movement resulted in partial inversion. Laryngeal vestibular closure was incomplete, with a narrow column of air/contrast noted within the laryngeal vestibule at the height of the swallow. Pharyngeal stripping wave was present and complete. Pharyngeal contraction could not be determined due to logistical reasons not related to physiologic impairment. Pharyngoesophageal segment opening was completely distended for complete duration with no obstruction of bolus flow. Tongue base retraction allowed no contrast between the retracted tongue base and the posterior pharyngeal wall. Pharyngeal residue was a trace within or on pharyngeal structures. Esophageal clearance in the upright position could not be assessed due to logistical reasons not related to physiologic impairment. Oral Impairment Score: 4 Pharyngeal Impairment Score: 4 (absence of score, component 13) Esophageal Impairment Score: --- (absence of score, component 17) Laryngeal Penetration and Aspiration: Neither penetration nor aspiration was observed in today's study with Cookie, Pudding-thick. Penetration was observed in today's study. Thin Contrast entered the airway, remained above the vocal folds, and was ejected from the airway. ASSESSMENT: Exam was performed by the radiologist and the speech pathologist. Patient was standing for lateral view and fed herself without any difficulty. She trialed thin, puree, and regular solid textures. There was no interlabial escape. Good tongue control with no premature posterior escape. Mastication was timely and efficient. Delayed posterior lingual movement. There was trace lingual residue, which cleared on secondary swallow. Pharyngeal swallow trigger was delayed, initiated as the bolus head reached the pyriforms. No evidence of nasopharyngeal reflux. Partial laryngeal elevation with partial epiglottic inversion and partial laryngeal vestibular closure. With trials of thin liquid, there was trace penetration above the vocal folds, which cleared on subsequent swallows. No evidence of aspiration during this exam. Trace pooling in the valleculae cleared on subsequent swallows. Liquid Intake Recommendation: Thin Liquid Intake Strategies: Small Sips, No Straws Dietary Recommendations: Regular Medication Administration: Whole with Liquid Please contact the pharmacy regarding appropriate crushable or liquid drug formulations that are available whenever modified delivery is recommended. Compensatory Strategies Recommended: Sitting Upright (90 deg), No Straw, Small Bites and Sips, Rate of Ingestion Change Recommendation for Speech Therapy: NA:Typical Evaluation Text Comment: Intake Recommendations: Route: PO Diet Grade: Regular Liquid Consistencies: Thin Post-Study Functional Oral Intake Scale (FOIS): 7- Total oral intake with no restrictions Oral phase was largely unremarkable. Patient presents with mild pharyngeal dysphagia, characterized by delayed pharyngeal swallow trigger, partial laryngeal elevation, partial epiglottic inversion, and incomplete laryngeal vestibular closure. There was transient penetration above the vocal folds with trace amount of thin liquid. No evidence of aspiration during this exam. Good oral and pharyngeal clearance. Therapy Recommendations: Diet modification and further dysphagia treatment is not warranted at this time. Findings were discussed with the patient after the exam. Patient is recommended swallow precautions due to penetration that was seen on this exam, which could put patient at risk of subsequent aspiration. Recommend patient take one sip at a time and avoid chugging liquids, avoid the use of straws, and ensure upright 90 degree positioning while eating and drinking. Continue with REGULAR texture diet and THIN liquids, pills WHOLE with LIQUID or PUREE. Patient verbalized understanding and denied having any further questions at this time. Recommend patient continue monitoring her dysphagia. If she experiences any changes or worsening of symptoms, she is advised to consult with her referring physician, at which point a repeat-MBSS may be warranted. Clinician - Supplemental, Miscellaneous Communication: It is important to note MBSS objective studies are snapshots in time and Patient function might vary with factors such as time of day or concomitant medical conditions. For this reason, the final treatment plan for this patient should rest with their medical care team. Additional recommendations should be considered with the totality of the Patient in mind. Thank for the opportunity to participate in the care of this patient. If you have any questions about the content of this report, please contact the [facility]. Education: Education regarding findings from today's study and plans for therapy were provided to Patient only through Verbal Instruction. Understanding was expressed by the Patient only. Supervisor Pumping Clinician/Clinical Fellow: No Supervisory Statement: N/A Speech Language Pathologist: Magaly Baker M.A., [facility]-REGIONAL ECONOMIST
== END 2025-02-17 14:29 | disposition home or self-care (01) ==
LOC: HO.XRAY 14:28
PROVIDERS: PCP Internal Medicine; Visit Provider Internal Medicine Pulmonary Disease
DX: T17.900A Unspecified foreign body in respiratory tract, part unspecified causing asphyxiation, initial encounter (principal)
CPT/HCPCS: 74230; 92611

== ENCOUNTER → 2025-02-17 14:40 | Outpatient (BNV) | payer OTHER, SELFPAY | PROVIDERS: PCP Internal Medicine; Visit Provider Radiology Diagnostic Radiology | DX: R13.10 Dysphagia, unspecified (principal) | CPT/HCPCS: 74230 ==

== ENCOUNTER 2025-06-12 10:49 | Outpatient (AMB) | payer OTHER, SELFPAY ==
--- NOTE | 2025-06-12 10:52 | A.OFFPC_ITS ---
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 Required: No Accompanied by: Self / Same As Patient Allergies No Known Allergies (No Known Allergies*) Allergy (Verified 06/12/25 10:53) Medication List - Last Reconciled 06/12/25 by Sanna Marina MD albuterol sulfate 2.5 mg (3 mL) inhalation Q8H PRN albuterol sulfate 90 mcg/actuation (Ventolin HFA) 2 puffs inhalation Q4-6H PRN bumetanide 0.5 mg PO DAILY 30 days cholecalciferol (vitamin D3) 25 mcg PO DAILY 90 days cyanocobalamin (vitamin B-12) 1,000 mcg PO DAILY 90 days dupilumab (Dupixent) 300 mg (2 mL) subcut Q2W 28 days epinephrine 1 mL IM DIRECTED ferrous sulfate 324 mg PO BID 90 days fluticasone propion-salmeterol 115-21 mcg/actuation (Advair HFA) 2 inhalations inhalation BID ipratropium-albuterol 20-100 mcg/actuation (Combivent Respimat) 1 puff PO QID montelukast 10 mg PO DAILY Tobacco use date assessed: 06/12/25 Dental Screening Dental Screen Date: 06/12/25 Did you have a dental visit in the last 12 months?: Yes Did you have a dental problem in the last 6 months where you did not have access to dental care?: No Was dental information given to patient?: Patient has dentist HPI Annual PE HPI Details Physical exam appointment The patient is a 50 year old female presenting with rashes, asthma management, and premenopausal bleeding issues. Rash (Eczema and Dermatophytosis): - Itchy, dry skin rash, affecting chest, back, and foot since summer, not fully resolved with OTCs. Asthma: - Managed with Dupixent, resulting in im proved symptoms and weight loss. Established with physical security specialist [facility] Premenopausal bleeding: - Heavy bleeding history, iron-deficienc y anemia related to menstrual irregularities. Established with OBGYN need a follow-up appointment for Pap smear Abscess Formation: - Recurrent groin and thigh abscesses, p redating current asthma treatment. Left knee pain: - Post-ACL repair knee pain aggravated w ith physical activity, with previous cortisone ineffective. Medical History: - Asthma - Iron-deficiency anemia - Premenopausal bleeding - Recurrent abscess formation - morbid obesity - toenail fungus Social History: - Smokes approximately three cigarettes per day, aiming to reduce. - Exercises frequently, reports weight l oss and improved physical activity. - Caregiving for father with advanced de mentia, contributing to stress. Family History: - Father is 95 years old, has advanced d ementia. Health Maintenance - Mammogram last conducted in January 2022, currently due. - Last blood test was over a year ago; r epeat fasting blood test is due. - Due for Pap smear and DIESEL ENGINE ERECTOR visit. - Routine colonoscopy done in November 2022 ; normal findings with presence of internal hemorrhoids. Next 1 will be in 2032 [place] [facility] - Primary care provider - Dr. Carson (for asthma management) - Dr. Hernadez (DIESEL ENGINE ERECTOR) - Dr. Celeste (performed colonoscopy) Patient Instructions - Schedule and complete mammogram and Pa p smear. - Arrange fasting blood test early next week. - Continue current inhaler management fo r asthma. - Monitor and address recurring skin cm hes with prescribed creams. Lotrisone, and dermatology referral placed - Avoid stress triggers; consider stress management approaches. - Monitor for recurring abscesses; manag ement with antibiotics as required. Discuss it further with Dermatology - Follow referrals for dermatology and o rthopedics. Continue supplements for now, physical exam in 1 year Review of Systems - General: No fever no chills - Neurological: No headaches no dizzin ess - Ear nose throat: No sore throat no hearing difficulty no ear pain - Cardiovascular: No syncope, no chest pain, no palpitations - Gastrointestinal: No nausea vomiting or diarrhea - Endocrine: No polyuria polydipsia no heat intolerance - Genitourinary: No dysuria - Skin: No new complaints Physical Exam General: Cooperative, healthy appearing, comfortable, no acute distress Orientation: Patient oriented x3 Head: Normal to inspection Ears: Within normal limit visually Nose: Normal external nose present Face and sinus: Normal facial exam Eyes: Appearance normal, extraocular movement intact pupils reactive Neck: Normal visual inspection and supple Respiratory: Normal respiratory effort and able to speak in complete sentences. Clear to auscultation, no stridor Cardiovascular: S1 and S2 RRR GI: Normal to inspection. Soft to palpation and nontender Skin: Turgor normal, maculopapular rash present on chest, back, and scaly rash on the side of both foot; very itchy and dry Neuro: Patient oriented x3, motor sensory intact, balance intact Extremities: Normal to inspection, pain left knee but range of motion intact PFSH Medical History Fatty liver Hemorrhoids Headache Sleep apnea Anemia Hx of renal calculi Seasonal allergies Asthma Vertigo Surgical History Hx of lithotripsy Hx of colonoscopy History of bilateral tubal ligation Hx of section S/P ACL repair Family History Father Prostate cancer Mental health disorder Diabetes High cholesterol Paternal Aunt History of breast cancer Brother Colon cancer, Onset Age: 50 Fibromyalgia Son Mental health disorder Son Mental health disorder Mother Mental health disorder High cholesterol Diabetes Social History Housing: House Are you a primary childcare worker to a significant other at home: No Do you presently have visiting nurse or other home services: No Alcohol intake: current Alcohol intake frequency: holidays/special occasions only Patient Tobacco Use Status: Current everyday Tobacco user Tobacco use type: Cigarette Cigarettes Per Day: 5 Years Smoked: 30 e-Cigarette/Vaping Use: Never Used service: No Current occupational status: employed 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 1. Little interest or pleasure in doing things: not at all 2. Feeling down, depressed, or hopeless: not at all 3. Trouble falling or staying asleep, or sleeping too much: not at all 4. Feeling tired or having little energy: several days 5. Poor appetite or overeating: not at all 6. Feeling bad about yourself - or that you are a failure or have let yourself or your family down: not at all 7. Trouble concentrating on things, such as reading the newspaper or watching television: not at all 8. Moving or speaking so slowly that other people could have noticed. Or the opposite - being so fidgety or restless that you have been moving around a lot more than usual: not at all 9. Thoughts that you would be better off or of hurting yourself in some way: not at all Total score: 1 Depression Screening Interpretation: Negative Depression Screening Done: Yes 72465 - PHQ-9 Billing: Yes Source: Developed by Drs. Dc Marsh, Lakeisha Holley, Willem Cummings and colleagues, with an educational ade from [employer]. Thrive Questionnaire Date Thrive assessed: 05/02/25 I am a: Patient What is your living situation today?: I have a steady place to live Within the past 12 months, did the food you bought not last and you didn't have the money to get more?: Never true Within the past 12 months, did you worry whether your food would run out before you got money to buy more?: Never true Do you have trouble paying for medicines?: No Do you have trouble getting transportation to medical appointments?: No Do you have trouble paying your heating and electricity bill?: No Do you have trouble taking care of your child, family member or friend?: No Do you have trouble with day-to-day activities such as bathing, preparing meals, shopping, managing finances, etc.?: No Are you currently unemployed and looking for a job?: No Are you interested in more education?: No Please select the resources that you would like help with: None Currently or been in a relationship where the following occur: No concerns reported THRIVE Score: 0 AUDIT C Alcohol Use Questionnaire (AUDIT-C) 1. How often do you have a drink containing alcohol?: Never 3. How often do you have six or more drinks on one occasion?: Never Total Score: 0 Score Reviewed/Action Taken: Yes GEOVANNA-7 AMB Questionnaire GEOVANNA-7 Date GEOVANNA - 7 assessed: 06/12/25 Feeling nervous, anxious, or on edge: 1 = Several days Not being able to stop or control worryin = Not at all Worrying too much about different things: 3 = Nearly every day Trouble relaxin = Several days Being so restless that it is hard to sit still: 0 = Not at all Becoming easily annoyed or irritable: 0 = Not at all Feeling afraid as if something awful might happen: 0 = Not at all Total GEOVANNA-7 score (0-4 normal; 5-9 mild; 10-14 moderate; 15-21 severe): 5 Source: Developed by Drs. Dc Marsh, Lakeisha Holley, Willem Cummings and colleagues, with an educational ade from [employer]. GEOVANNA-7 Assessment Billing GEOVANNA-7 Assessment Tool: GEOVANNA-7 Assessment 52737 Physical exam (Primary Care) Vital Signs: Last Vital Signs Pulse 98 06/12/25 10:53 BP 138/80 06/12/25 10:53 Pulse Ox 97 06/12/25 10:53 Oxygen Delivery Method Room Air 06/12/25 10:53 BMI result Body Mass Index 46.9 Tobacco/Smoking Status: Tobacco use Status Tobacco use date assessed 06/12/25 06/12/25 10:54 Patient Tobacco Use Status Current everyday Tobacco 06/12/25 10:54 Tobacco use type Cigarette 06/12/25 10:54 e-Cigarette/Vaping Use Never Used 06/12/25 10:54 PHQ-9: PHQ-9 Score PHQ-9: Total score 1 06/12/25 10:54 Depression Screening Interpretation: Negative Thrive Assessment: Date of Thrive Assessment Date Thrive assessed 05/02/25 06/12/25 10:54 Currently or been in a relationship where the following occur: No concerns reported Coding Level of Care Code Est Pt Level 4 (71217) Est Pt Prev Care 40-64y(92368) Diagnoses Encounter for general adult medical examination with abnormal findings Z00.01 Chronic pain of left knee M25.562; G89.29 Chronicity: chronic Rash R21 Recurrent boils L02.92 Toenail fungus B35.1 Severe persistent asthma without complication J45.50 Asthma complication type: uncomplicated Iron deficiency anemia due to chronic blood loss D50.0 Iron deficiency anemia type: chronic blood loss Excessive bleeding in premenopausal period N92.4 Menorrhagia type: premenopausal Vitamin D deficiency E55.9 B12 deficiency E53.8 Morbid obesity due to excess calories E66.01 Primary osteoarthritis of left knee M17.12 Additional Codes GEOVANNA-7 Assessment Billing - GEOVANNA-7 Assessment Tool: GEOVANNA-7 Assessment [id number] ([id number]) PHQ-9 - 90976 - PHQ-9 Billing: Yes ([id number]) Assessment & Plan Assessment & Plan (1) Encounter for general adult medical examination with abnormal findings: Code(s): Z00.01 - Encounter for general adult medical examination with abnormal findings Category: Medical (2) Knee pain, left: Code(s): M25.562 - Pain in left knee Category: Medical Qualifiers: Chronicity: chronic Qualified Code(s): M25.562 - Pain in left knee; G89.29 - Other chronic pain (3) Rash: Code(s): R21 - Rash and other nonspecific skin eruption Category: Medical (4) Recurrent boils: Code(s): L02.92 - Furuncle, unspecified Category: Medical (5) Toenail fungus: Code(s): B35.1 - Tinea unguium Category: Medical (6) Severe persistent asthma: Code(s): J45.50 - Severe persistent asthma, uncomplicated Category: Medical Qualifiers: Asthma complication type: uncomplicated Qualified Code(s): J45.50 - Severe persistent asthma, uncomplicated (7) Anemia, iron deficiency: Code(s): D50.9 - Iron deficiency anemia, unspecified Category: Medical Qualifiers: Iron deficiency anemia type: chronic blood loss Qualified Code(s): D50.0 - Iron deficiency anemia secondary to blood loss (chronic) (8) Heavy menstrual bleeding: Code(s): N92.0 - Excessive and frequent menstruation with regular cycle Category: Medical Qualifiers: Menorrhagia type: premenopausal Qualified Code(s): N92.4 - Excessive bleeding in the premenopausal period (9) Vitamin D deficiency: Code(s): E55.9 - Vitamin D deficiency, unspecified Category: Medical (10) B12 deficiency: Code(s): E53.8 - Deficiency of other specified B group vitamins Category: Medical (11) Morbid obesity due to excess calories: Code(s): E66.01 - Morbid (severe) obesity due to excess calories Category: Medical (12) Primary osteoarthritis of left knee: Code(s): M17.12 - Unilateral primary osteoarthritis, left knee Category: Medical Plan Physical exam appointment The patient is a 50 year old female presenting with rashes, asthma management, and premenopausal bleeding issues. Rash (Eczema and Dermatophytosis): - Itchy, dry skin rash, affecting chest, back, and foot since summer, not fully resolved with OTCs. Asthma: - Managed with Dupixent, resulting in improved symptoms and weight loss. Established with physical security specialist [facility] Premenopausal bleeding: - Heavy bleeding history, iron-deficiency anemia related to menstrual irregularities. Established with OBGYN need a follow-up appointment for Pap smear Abscess Formation: - Recurrent groin and thigh abscesses, predating current asthma treatment. Left knee pain: - Post-ACL repair knee pain aggravated with physical activity, with previous cor tisone ineffective. Medical History: - Asthma - Iron-deficiency anemia - Premenopausal bleeding - Recurrent abscess formation - morbid obesity - toenail fungus Social History: - Smokes approximately three cigarettes per day, aiming to reduce. - Exercises frequently, reports weight loss and improved physical activity. - Caregiving for father with advanced dementia, contributing to stress. Family History: - Father is 95 years old, has advanced dementia. Health Maintenance - Mammogram last conducted in January 2022, currently due. - Last blood test was over a year ago; repeat fasting blood test is due. - Due for Pap smear and DIESEL ENGINE ERECTOR visit. - Routine colonoscopy done in November 2022; normal findings with presence of internal hemorrhoids. Next 1 will be in 2032 [place] [facility] - Primary care provider - Dr. Carson (for asthma management) - Dr. Hernadez (DIESEL ENGINE ERECTOR) - Dr. Celeste (performed colonoscopy) Patient Instructions - Schedule and complete mammogram and Pap smear. - Arrange fasting blood test early next week. - Continue current inhaler management for asthma. - Monitor and address recurring skin rashes with prescribed creams. Lotrisone, and dermatology referral placed - Avoid stress triggers; consider stress management approaches. - Monitor for recurring abscesses; management with antibiotics as required. Discuss it further with Dermatology - Follow referrals for dermatology and orthopedics. Continue supplements for now, physical exam in 1 year Orders: Orders Folate Today D50.0 - Iron deficiency anemia secondary to blood loss (chronic), E53.8 - Deficiency of other specified B group vitamins, E55.9 - Vitamin D deficiency, unspecified, E66.01 - Morbid (severe) obesity due to excess calories, J45.50 - Severe persistent asthma, uncomplicated, N92.0 - Excessive and frequent menstruation with regular cycle, Z00.01 - Encounter for general adult medical examination with abnormal findings Vitamin D 25-OH (D2 and D3) Today D50.0 - Iron deficiency anemia secondary to blood loss (chronic), E53.8 - Deficiency of other specified B group vitamins, E55.9 - Vitamin D deficiency, unspecified, E66.01 - Morbid (severe) obesity due to excess calories, J45.50 - Severe persistent asthma, uncomplicated, N92.0 - Excessive and frequent menstruation with regular cycle, Z00.01 - Encounter for general adult medical examination with abnormal findings Vitamin B12 Today D50.0 - Iron deficiency anemia secondary to blood loss (chr onic), E53.8 - Deficiency of other specified B group vitamins, E55.9 - Vitamin D deficiency, unspecified, E66.01 - Morbid (severe) obesity due to excess calories, J45.50 - Severe persistent asthma, uncomplicated, N92.0 - Excessive and frequent menstruation with regular cycle, Z00.01 - Encounter for general adult medical examination with abnormal findings MM tomosynthesis screening BI Today Z12.31 - Encounter for screening mammogram for malignant neoplasm of breast Ferritin Today D50.0 - Iron deficiency anemia secondary to blood loss (chroni c), E53.8 - Deficiency of other specified B group vitamins, E55.9 - Vitamin D deficiency, unspecified, E66.01 - Morbid (severe) obesity due to excess calories, J45.50 - Severe persistent asthma, uncomplicated, N92.0 - Excessive and frequent menstruation with regular cycle, Z00.01 - Encounter for general adult medical examination with abnormal findings Complete Blood Count Auto Diff Today D50.0 - Iron deficiency anemia secondary to blood loss (chronic), E53.8 - Deficiency of other specified B group vitamins, E55.9 - Vitamin D deficiency, unspecified, E66.01 - Morbid (severe) obesity due to excess calories, J45.50 - Severe persistent asthma, uncomplicated, N92.0 - Excessive and frequent menstruation with regular cycle, Z00.01 - Encounter for general adult medical examination with abnormal findings Comprehensive [place]. Panel Fast Today D50.0 - Iron deficiency anemia secondary to blood loss (chronic), E53.8 - Deficiency of other specified B group vitamins, E55.9 - Vitamin D deficiency, unspecified, E66.01 - Morbid (severe) obesity due to excess calories, J45.50 - Severe persistent asthma, uncomplicated, N92.0 - Excessive and frequent menstruation with regular cycle, Z00.01 - Encounter for general adult medical examination with abnormal findings Lipid Panel Today D50.0 - Iron deficiency anemia secondary to blood loss (chronic), E53.8 - Deficiency of other specified B group vitamins, E55.9 - Vitamin D deficiency, unspecified, E66.01 - Morbid (severe) obesity due to excess calories, J45.50 - Severe persistent asthma, uncomplicated, N92.0 - Excessive and frequent menstruation with regular cycle, Z00.01 - Encounter for general adult medical examination with abnormal findings TSH reflex Free T4 Today D50.0 - Iron deficiency anemia secondary to blood loss (chronic), E53.8 - Deficiency of other specified B group vitamins, E55.9 - Vitamin D deficiency, unspecified, E66.01 - Morbid (severe) obesity due to excess calories, J45.50 - Severe persistent asthma, uncomplicated, N92.0 - Excessive and frequent menstruation with regular cycle, Z00.01 - Encounter for general adult medical examination with abnormal findings Referrals Podiatry Referral B35.1 - Tinea unguium Dermatology Referral L02.92 - Furuncle, unspecified, R21 - Rash and other nonspecific skin eruption Orthopedics Referral M17.12 - Unilateral primary osteoarthritis, left knee, M25.562 - Pain in left knee Medications: New clotrimazole-betamethasone 1-0.05 % 1 appl topical ONCE 45 grams 0RF 30 days
[2025-06-12 10:53] VITALS: BP 138/80; PULSE 98; O2SAT 97; BMI 46.9
--- OUTSIDE RECORDS SUMMARY | 2025-06-12 11:29 | XMS_ITS | Encounter Summary ---
Author Organization [employer] Address [address] [place] [address] Care Team Providers Care Whiskey Regauger Name Role Phone Unavailable Primary Care Provider Unavailabl e Encounter Details Date Type Department Care Team (Latest Contact Info) Description 10/15/2018 Abstract [facility] CONVERSIONS Dental, Provider, DDS Social History Tobacco [...]
--- OUTSIDE RECORDS SUMMARY | 2025-06-12 11:29 | XMS_ITS | Clinical Summary ---
Author Organization [employer] Address [address] [place] [address] [address] [place] [address] Care Team Providers Care Spice Cleaner Name Role Phone Unavailable Primary Care Provider [...] COVID-19 Vaccine ( - 2023-2 5 season) 2025 Influenza Vaccine (#1) 2025 RSV Patients and Pa tients Aged 60 [...]
== END 2025-06-12 11:24 | disposition home or self-care (01) ==
LOC: HO.HMCC 10:50
PROVIDERS: PCP Internal Medicine; Visit Provider Internal Medicine
DX: Z00.01 Encounter for general adult medical examination with abnormal findings (principal); M25.562 Pain in left knee; J45.50 Severe persistent asthma, uncomplicated; E66.01 Morbid (severe) obesity due to excess calories; Z68.42 Body mass index [BMI] 45.0-49.9, adult; G89.29 Other chronic pain; R21 Rash and other nonspecific skin eruption; L02.92 Furuncle, unspecified; B35.1 Tinea unguium; D50.0 Iron deficiency anemia secondary to blood loss (chronic); N92.4 Excessive bleeding in the premenopausal period; E55.9 Vitamin D deficiency, unspecified

== ENCOUNTER → 2025-06-12 10:49 | Outpatient (BNVA) | payer OTHER, SELFPAY | PROVIDERS: PCP Internal Medicine; Visit Provider Internal Medicine | DX: Z00.01 Encounter for general adult medical examination with abnormal findings (principal); R21 Rash and other nonspecific skin eruption; G89.29 Other chronic pain; L02.92 Furuncle, unspecified; B35.1 Tinea unguium; J45.50 Severe persistent asthma, uncomplicated; D50.0 Iron deficiency anemia secondary to blood loss (chronic); N92.4 Excessive bleeding in the premenopausal period; E55.9 Vitamin D deficiency, unspecified; E53.8 Deficiency of other specified B group vitamins; E66.01 Morbid (severe) obesity due to excess calories; M17.12 Unilateral primary osteoarthritis, left knee; Z68.42 Body mass index [BMI] 45.0-49.9, adult | CPT/HCPCS: 96127; 99212; 99396 ==

== ENCOUNTER 2025-07-02 10:58 | Outpatient (REF) | payer OTHER, SELFPAY | END 2025-07-02 10:59 | disposition home or self-care (01) | LOC: HO.LAB 10:58 | PROVIDERS: PCP Internal Medicine; Visit Provider Student in an Organized Health Care Education/Training Program | DX: L60.3 Nail dystrophy (principal); B35.1 Tinea unguium; R21 Rash and other nonspecific skin eruption; Z79.899 Other long term (current) drug therapy | CPT/HCPCS: 11721; 87101; 87220; 99202 ==

== ENCOUNTER 2025-07-02 10:58 | Outpatient (AMB) | payer OTHER, SELFPAY ==
[2025-07-02 11:06] VITALS: BMI 45.6
--- NOTE | 2025-07-02 11:06 | A.OFFVIS_ITS ---
Vital Signs 07/02/25 11:06 Height 4 ft 11 in Weight 226 lb BMI 45.6 Intake Visit Reasons: Tinea Unguium Intake Note: Kayleigh is a 50 year old female who presents today as a New Patient with complaints of bilateral foot fungus. She states this occurred after getting a pedicure about 4-6 months ago. She has tried OTC fungal cream and a prescribed cream from PCP and found no relief however she has recently been using her father mometasone cream and see slight improvement. Allergies No Known Allergies (No Known Allergies*) Allergy (Verified 07/02/25 11:07) Medication List - Last Reconciled 07/02/25 by Reyna Zeng DPM albuterol sulfate 2.5 mg (3 mL) inhalation Q8H PRN albuterol sulfate 90 mcg/actuation (Ventolin HFA) 2 puffs inhalation Q4-6H PRN bumetanide 0.5 mg PO DAILY 30 days cholecalciferol (vitamin D3) 25 mcg PO DAILY 90 days ciclopirox 8% 1 appl topical BEDTIME 4 weeks clotrimazole-betamethasone 1-0.05 % 1 appl topical ONCE 30 days cyanocobalamin (vitamin B-12) 1,000 mcg PO DAILY 90 days dupilumab (Dupixent) 300 mg (2 mL) subcut Q2W 28 days epinephrine 1 mL IM DIRECTED ferrous sulfate 324 mg PO BID 90 days fluticasone propion-salmeterol 115-21 mcg/actuation (Advair HFA) 2 inhalations inhalation BID ipratropium-albuterol 20-100 mcg/actuation (Combivent Respimat) 1 puff PO QID montelukast 10 mg PO DAILY HPI Comments Details: The patient is a 50-year-old female with a past medical history as seen below presenting with concerns about nail changes and skin issues on the feet. The patient reports that the nail changes began recently, with the nails breaking and cracking, particularly on the big toe. She noticed these changes after removing nail scottish. For the nail condition, she has tried using OTC topical treatments and a cream prescribed by her primary care provider, but these did not resolve the issue. She also reports a rash that was treated with mometasone, which improved the rash but did not completely resolve it. The patient also reports a callus on her foot, which she has been managing with a liquid treatment and at home shavings previously. She denies any other pedal concerns. Denies any recent pedal injuries. [facility] Medical History Fatty liver Hemorrhoids Headache Sleep apnea Anemia Hx of renal calculi Seasonal allergies Asthma Vertigo Surgical History Hx of lithotripsy Hx of colonoscopy History of bilateral tubal ligation Hx of section S/P ACL repair Family History Father Prostate cancer Mental health disorder Diabetes High cholesterol Paternal Aunt History of breast cancer Brother Colon cancer, Onset Age: 50 Fibromyalgia Son Mental health disorder Son Mental health disorder Mother Mental health disorder High cholesterol Diabetes Social History Housing: House Are you a primary manager progressive care to a significant other at home: No Do you presently have visiting nurse or other home services: No Alcohol intake: current Alcohol intake frequency: holidays/special occasions only Patient Tobacco Use Status: Current everyday Tobacco user Tobacco use type: Cigarette Cigarettes Per Day: 5 Years Smoked: 30 e-Cigarette/Vaping Use: Never Used service: No Current occupational status: employed 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 Denies open wounds. All systems reviewed & are unremarkable except as noted in HPI and below Physical Exam Vital Signs: BMI result Body Mass Index 45.6 Extrem Other: B/L LE Focused Physical Exam: Derm: Slightly thickened, discolored, and dystrophic toenails x10 with subungual debris. Mild rash noted to the feet diffusely with minimal erythema and raised lesions. Pre-hyperkeratotic lesions noted to bilateral plantar aspects of the feet. No open wounds noted. Xerosis noted. No maceration noted. No clinical signs of infection. Vasc: DP/PT pulses palpable. CFT < 3 secs. Temp gradient warm to warm. Pedal hair absent. No varicosities noted. Neuro: Protective sensations grossly intact. MSK: No pain on palpation to the forefoot, hindfoot, and ankles WNL. ROM of the forefoot, hindfoot, and ankles WNL. No crepitus or fluctuance noted. Unassisted non-antalgic gait. No gross abnormalities. Office Procedures AMB Debridement/Avulsion Podia Details: Debrided toenails x10 using sterile nail nippers and sent samples for pathology and microbiology. [id number] of Nail 6+ Procedure code (CPT) selection complete Results Reviewed Results Reviewed: Ordered microbiology and pathology sampling. Assessment & Plan Assessment & Plan (1) Tinea unguium: Code(s): B35.1 - Tinea unguium Category: Medical (2) Nail dystrophy: Code(s): L60.3 - Nail dystrophy Category: Medical (3) Nail disorder: Code(s): L60.9 - Nail disorder, unspecified Category: Medical Plan Patient was informed and verbally consented to the use of an ambient scribe for clinic note documentation during this visit. I discussed with the patient the use of clotrimazole with betamethasone cream for the rash, explaining its benefits in reducing redness and inflammation. I also explained the use of ciclopirox nail lacquer for onychomycosis, emphasizing the long treatment duration required for visible results. We discussed the option of oral terbinafine, including the need for regular liver function monitoring due to potential side effects if topical treamtent is ineffective. I informed the patient about sending nail samples for fungal culture and pathology to identify the specific fungus. I advised against applying lotion between the toes to prevent skin breakdown and recommended using Vaseline on the callus to prevent rapid skin buildup. - Refilled clotrimazole with betamethasone cream for the rash to reduce redness and inflammation. - Prescribed ciclopirox nail lacquer for daily application to treat onychomycosis, with an expected treatment duration of nine months to a year. - Advised patient to previous application of topical treatment prior to another application for penetration of medication into the nails. - Discussed the option of oral terbinafine if topical treatment doesnt work. - Sent nail samples to pathology and microbiology. - Advised against applying lotion between the toes to prevent skin breakdown. - Recommended using Vaseline on the callus to prevent rapid skin buildup. - Patient is to keep her feet, shoes, and socks clean and dry. RTC 1 month for re-evaluation. Orders: Orders Fungus Cult Hair/Skin/Nail Today B35.1 - Tinea unguium, L60.3 - Nail dystrophy, L60.9 - Nail disorder, unspecified Surgical Today B35.1 - Tinea unguium, L60.3 - Nail dystrophy, L60.9 - Nail disorder, unspecified AMB Debridement/Avulsion Podiatry Today B35.1 - Tinea unguium, L60.3 - Nail dystrophy, L60.9 - Nail disorder, unspecified Medications: New ciclopirox 8% 1 appl topical BEDTIME 6.6 mL 0RF Onychomycosis 4 weeks B35.1 - Tinea unguium, L60.3 - Nail dystrophy, L60.9 - Nail disorder, unspecified Refilled clotrimazole-betamethasone 1-0.05 % 1 appl topical ONCE 45 grams 0RF 30 days Coding Level of Care Code New Pt Level 4 (13747) Diagnoses Tinea unguium B35.1 Nail dystrophy L60.3 Nail disorder L60.9 CPT Codes Skin Debridement - CPT: 00847-Pncpspfhcxg of Nail 6+ ([id number]) Time Spent (min) 55
== END 2025-07-02 11:38 | disposition home or self-care (01) ==
LOC: HO.HPODS 10:59
PROVIDERS: PCP Internal Medicine; Visit Provider Student in an Organized Health Care Education/Training Program
DX: B35.1 Tinea unguium (principal); L60.3 Nail dystrophy; L60.9 Nail disorder, unspecified
CPT/HCPCS: 11721; 99204

== ENCOUNTER 2025-07-02 11:36 | Outpatient (REF) | payer OTHER, SELFPAY | END 2025-07-02 11:37 | disposition home or self-care (01) | LOC: HO.LNP 11:36 | PROVIDERS: Visit Provider Student in an Organized Health Care Education/Training Program | DX: L60.3 Nail dystrophy (principal); B35.1 Tinea unguium; L60.9 Nail disorder, unspecified | CPT/HCPCS: 88304; 88312 ==

== ENCOUNTER 2025-08-11 11:34 | Outpatient (REF) | payer OTHER, SELFPAY ==
--- NOTE | ~2025-08-11 | MM_ITS ---
EXAMINATION: MM SCREENING DIGITAL BREAST TOMOSYNTHESIS, BILATERAL CLINICAL INFORMATION: Screening. Asymptomatic. COMPARISON: Mammography: Comparison is made with available priors TECHNIQUE: Digital breast mammography with tomosynthesis is performed in both the craniocaudal and mediolateral oblique views along with computer-aided detection (CAD). FINDINGS: There are scattered areas of fibroglandular density. There are no significant masses, abnormal calcifications, or other abnormalities. MM/MM tomosynthesis screening BI IMPRESSION: No mammographic evidence of malignancy. ASSESSMENT: BI-RADS Category 1: Negative RECOMMENDATION: Routine annual mammography screening. 1 year F/U This examination should not preclude the clinical evaluation of a suspicious palpable abnormality. This patient's information was entered into a reminder system with a target due date for their next mammogram. Electronically signed by: Apple Queen DO 08/11/2025 06:37 PM CHANG
== END 2025-08-11 11:35 | disposition home or self-care (01) ==
LOC: HO.MAMMO 11:34
PROVIDERS: PCP Internal Medicine; Visit Provider Internal Medicine
DX: Z12.31 Encounter for screening mammogram for malignant neoplasm of breast (principal)
CPT/HCPCS: 77063; 77067

== ENCOUNTER → 2025-08-11 11:45 | Outpatient (BNV) | payer OTHER, SELFPAY | PROVIDERS: PCP Internal Medicine; Visit Provider Internal Medicine | DX: Z12.31 Encounter for screening mammogram for malignant neoplasm of breast (principal) | CPT/HCPCS: 77063; 77067 ==

== ENCOUNTER 2025-08-18 10:28 | Outpatient (AMB) | payer OTHER, SELFPAY ==
--- NOTE | 2025-08-18 10:39 | MHC.OFFVIS ---
Vital Signs 08/18/25 10:40 Height 4 ft 11 in Weight 226 lb BMI 45.6 Intake Visit Reasons: fungal nails Intake Note: Kayleigh is a 50 year old female who presents today for a follow up on her fungal nails. At her last visit her toenails where debrided and samples where sent out for pathology and microbiology. Patients clotrimazole and betamethasone cream here refilled and she was prescribed ciclopirox. She states her toenails look slightly better and she has been using the medications as prescribed. - Allergies No Known Allergies (No Known Allergies*) Allergy (Verified 08/18/25 10:41) HPI Comments Details: The patient is a 50-year-old individual presenting for a follow up with onychomycosis. The patient states she has been consistent with application of the ciclopirox. She denies any adverse effects with the topical medication. She states she has noticed some improvement in the appearance of the nails, more to the right. She denies any other pedal concerns. [facility] Medical History (Updated 07/02/25 @ 11:37 by Reyna Zeng DPM) Nail disorder Nail dystrophy Tinea unguium Fatty liver Hemorrhoids Headache Sleep apnea Anemia Hx of renal calculi Seasonal allergies Asthma Vertigo Surgical History Hx of lithotripsy Hx of colonoscopy History of bilateral tubal ligation Hx of section S/P ACL repair Family History Father Prostate cancer Mental health disorder Diabetes High cholesterol Paternal Aunt History of breast cancer Brother Colon cancer, Onset Age: 50 Fibromyalgia Son Mental health disorder Son Mental health disorder Mother Mental health disorder High cholesterol Diabetes Social History Housing: House Are you a primary healthcare consulting manager to a significant other at home: No Do you presently have visiting nurse or other home services: No Alcohol intake: current Alcohol intake frequency: holidays/special occasions only Patient Tobacco Use Status: Current everyday Tobacco user Tobacco use type: Cigarette Cigarettes Per Day: 5 Years Smoked: 30 e-Cigarette/Vaping Use: Never Used service: No Current occupational status: employed 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 All systems reviewed & are unremarkable except as noted in HPI and below Physical Exam Vital Signs: BMI result Body Mass Index 45.6 Extrem Other: B/L LE Focused Physical Exam: Derm: Slightly thickened, discolored, and dystrophic toenails x10 with subungual debris, improving from last visit - more improved on the right. Nails within normal length. Improving rash noted to the feet diffusely with minimal hyperpigmentation and raised lesions. Pre-hyperkeratotic lesions noted to bilateral plantar aspects of the feet. No open wounds noted. Xerosis noted. No maceration noted. No clinical signs of infection. Vasc: DP/PT pulses palpable. CFT < 3 secs. Temp gradient warm to warm. Pedal hair absent. No varicosities noted. Neuro: Protective sensations grossly intact. MSK: No pain on palpation to the forefoot, hindfoot, and ankles WNL. ROM of the forefoot, hindfoot, and ankles WNL. No crepitus or fluctuance noted. Unassisted non-antalgic gait. No gross abnormalities. Results Reviewed Results Reviewed: B/L toenails microbiology: Fungus present on culture. Trichophyton species. B/L toenails pathology: Positive for fungal hyphae and large buds. Assessment & Plan Assessment & Plan (1) Tinea unguium: Code(s): B35.1 - Tinea unguium Category: Medical (2) Nail dystrophy: Code(s): L60.3 - Nail dystrophy Category: Medical (3) Nail disorder: Code(s): L60.9 - Nail disorder, unspecified Category: Medical Plan Patient was informed and verbally consented to the use of an ambient scribe for clinic note documentation during this visit. I discussed with the patient the diagnosis of onychomycosis and the positive pathology results for Trichophyton fungus. We reviewed treatment options, including continuing with topical antifungal treatment and the potential for oral medication, considering the patient's history of fatty liver. I explained the importance of monitoring liver function if oral medication is pursued and provided reassurance about the current treatment plan. - Continue Ciclopirox treatment for onychomycosis and monitor progress. - Advised patient to file down previous application of topical treatment prior to another application for penetration of medication into the nails. - Consider oral antifungal medication if topical treatment remains insufficient (expected timeline of improvement = 9-12 months), with prior liver function test evaluation due to history of fatty liver. - Refilled prescription for Ciclopirox. - Refilled clotrimazole with betamethasone cream. - Continue application of Clotrimazole-Betamethasone cream for rash. - Advised against applying cream between the toes to prevent skin breakdown. - Recommended using Vaseline on the callus to prevent rapid skin buildup. - Patient is to keep her feet, shoes, and socks clean and dry. - Avoid barefoot walking and wear supportive shoe gear. RTC in 2 months. Medications: Refilled ciclopirox 8% 1 appl topical BEDTIME 6.6 mL 0RF Onychomycosis 4 weeks B35.1 - Tinea unguium, L60.3 - Nail dystrophy, L60.9 - Nail disorder, unspecified clotrimazole-betamethasone 1-0.05 % 1 appl topical ONCE 45 grams 0RF 30 days Coding Level of Care Code Est Pt Level 3 (41926) Diagnoses Tinea unguium B35.1 Nail dystrophy L60.3 Nail disorder L60.9 Time Spent (min) 22
[2025-08-18 10:40] VITALS: BMI 45.6
--- OUTSIDE RECORDS SUMMARY | 2025-08-18 13:11 | XMS_ITS | Encounter Summary ---
Author Organization [employer] Address [address] [place] [address] Care Team Providers Care Silk Soaker Name Role Phone Unavailable Primary Care Provider Unavailabl e Encounter Details Date Type Department Care Team (Latest Contact Info) Description 10/15/2018 Abstract [facility] CONVERSIONS Dental, Provider, DDS Social History [...]
--- OUTSIDE RECORDS SUMMARY | 2025-08-18 13:11 | XMS_ITS | Clinical Summary ---
Author Organization [employer] Address [address] [place] [address] [address] [place] [address] Care Team Providers Care Vehicle Glass Technician Name Role Phone Unavailable Primary Care Provider [...] of 2) 2023 COVID-19 Vaccine ( - 2024-2 6 season) 2025 Influenza Vaccine (#1) 2025 RSV [...]
== END 2025-08-18 10:58 | disposition home or self-care (01) ==
LOC: HO.HPODS 10:29
PROVIDERS: PCP Internal Medicine; Visit Provider Student in an Organized Health Care Education/Training Program
DX: B35.1 Tinea unguium (principal); L60.3 Nail dystrophy
CPT/HCPCS: 11721; 99213

== ENCOUNTER → 2025-08-18 10:28 | Outpatient (BNVA) | payer OTHER, SELFPAY | PROVIDERS: PCP Internal Medicine; Visit Provider Student in an Organized Health Care Education/Training Program | DX: B35.1 Tinea unguium (principal); L60.3 Nail dystrophy; L60.9 Nail disorder, unspecified | CPT/HCPCS: 11721; 99212 ==

== ENCOUNTER 2025-09-11 06:35 | Outpatient (REF) | payer OTHER, SELFPAY ==
--- NOTE | ~2025-09-11 | XR_ITS ---
EXAMINATION: XR KNEE, LEFT CLINICAL INFORMATION: pain COMPARISON: 03/10/2022 TECHNIQUE: Three views of the left knee. FINDINGS: There is moderate loss of tricompartment joint space with periarticular spurring. There are no loose bodies, bony erosive changes. There is minimal suprapatellar joint effusion. The lateral distal femoral serrated plate from old intervention. XR/XR knee LT 3V IMPRESSION: Degenerative arthritic changes throughout the tricompartment with periarticular spurring and small joint effusion. The periarticular spurring has increased since the last exam 03/10/2022. There is minimal suprapatellar joint effusion but no loose bodies seen. Electronically signed by: Christian Dang MD 09/14/2025 09:06 AM CHANG
--- OUTSIDE RECORDS SUMMARY | 2025-09-11 06:39 | XMS_ITS | Encounter Summary ---
Author Organization [employer] Address [address] [place] [address] Care Team Providers Care Sas Architect Name Role Phone Unavailable Primary Care Provider Unavailabl e Encounter Details Date Type Department Care Team (Latest Contact Info) Description 10/15/2018 Abstract [facility] CONVERSIONS Dental, Provider, DDS Social History [...]
--- OUTSIDE RECORDS SUMMARY | 2025-09-11 06:39 | XMS_ITS | Clinical Summary ---
Author Organization [employer] Address [address] [place] [address] [address] [place] [address] Care Team Providers Care Teleradiologist Name Role Phone Unavailable Primary Care Provider [...]
== END 2025-09-11 06:36 | disposition home or self-care (01) ==
LOC: HO.HOSX 06:35
PROVIDERS: Visit Provider Physician Assistant
DX: M17.32 Unilateral post-traumatic osteoarthritis, left knee (principal)
CPT/HCPCS: 73562

== ENCOUNTER 2025-09-11 13:33 | Outpatient (AMB) | payer OTHER, SELFPAY ==
--- NOTE | 2025-09-11 13:45 | MHC.OFFVIS ---
Intake Visit Reasons: Newprob- LT knee OA, last injection 03/10/22 Intake Note: Kayleigh is a 50 year old female who presents today as an established patient, for a new problem visit to evaluate left knee pain. Patient was last seen here for her left knee on 03/10/22, she was provided with a cortisone injection and an order was placed for physical therapy. Today patient reports that she did not attend physical therapy but continued with her at home exercises. Patient states that for the past four months she has increased knee pain that is now radiating up/down her leg. She added that two weeks ago her left knee felt heavy. Allergies No Known Allergies (No Known Allergies*) Allergy (Verified 08/18/25 10:41) HPI Comments Details: History of Present Illness The patient is a 50 year old female presenting with worsening left knee pain. She has a history of an ACL surgery on her left knee approximately 25 years ago, which was followed by another surgery a year later to remove hardware and scar tissue. A left knee injection in 2021 provided only about one week of relief. The patient reports that the pain has been getting progressively worse, and about two weeks ago, it was so severe that she could not bear weight on it. She describes the pain as occurring even upon waking and notes a new, sharp, catching pain on the side of her knee, which she feels is different from her usual symptoms. She also reports associated left hip pain. She reports weight gain after starting asthma medication, which she believes worsened her knee pain. She is actively trying to manage her weight, has lost 40 pounds through Pilates, and uses ibuprofen 800 mg for pain. Her medical history is notable for asthma and kidney stones, and she has no known medication allergies. Social History - Exercise: The patient has been engaging in Pilates exercises. - Weight Management: The patient reports she has lost 40 pounds but also notes a prior weight gain after starting asthma medication, which she feels contributed to her knee pain. [facility] Medical History (Updated 09/11/25 @ 14:06 by Marissa Sellers PA-C) Nail disorder Nail dystrophy Tinea unguium Fatty liver Hemorrhoids Headache Sleep apnea Anemia Hx of renal calculi Seasonal allergies Asthma Vertigo Surgical History Hx of lithotripsy Hx of colonoscopy History of bilateral tubal ligation Hx of section S/P ACL repair Family History Father Prostate cancer Mental health disorder Diabetes High cholesterol Paternal Aunt History of breast cancer Brother Colon cancer, Onset Age: 50 Fibromyalgia Son Mental health disorder Son Mental health disorder Mother Mental health disorder High cholesterol Diabetes Social History Housing: House Are you a primary clinical care manager to a significant other at home: No Do you presently have visiting nurse or other home services: No Alcohol intake: current Alcohol intake frequency: holidays/special occasions only Patient Tobacco Use Status: Current everyday Tobacco user Tobacco use type: Cigarette Cigarettes Per Day: 5 Years Smoked: 30 e-Cigarette/Vaping Use: Never Used service: No Current occupational status: employed 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 - Reports a sharp, catching pain, grinding, and locking sensation in the knee. - Reports difficulty with stairs and limited knee flexion. - Reports associated left hip pain. - Constitutional: Reports weight gain after starting a new medication but has also had a 40-pound weight loss. - Respiratory: Reports a history of asthma. - Genitourinary: Reports a history of kidney stones. - Allergic/Immunologic: Denies any medication allergies. Physical Exam Exam Exam: Physical Exam - Musculoskeletal: Left knee demonstrates tenderness to palpation. - Crepitus is noted with active range of motion. - Range of motion is limited in flexion. - No pain was noted with passive movements. Assessment & Plan Assessment & Plan (1) Patellofemoral arthritis of left knee: Code(s): M17.12 - Unilateral primary osteoarthritis, left knee Category: Medical Plan Plan 1. Left Knee Osteoarthritis, Post-Traumatic Today's x-rays confirm progressive post-traumatic arthritis in the left knee, with increased osteophyte formation since the last visit. The patient's symptoms are consistent with patellofemoral arthritis, and possible IT band syndrome may be contributing factors. Management will begin with a two-week course of Celebrex twice daily. A referral for physical therapy is ordered to focus on strengthening the quadriceps and gluteal muscles to improve knee stability and patellar tracking. A knee sleeve was provided for support. The patient will continue efforts with weight loss. A knee replacement is not recommended at this time, with a goal to preserve the elim ira joint for at least another 10 years. The patient is advised to follow up in one to two months if her pain persists. At the follow-up visit, intra-articular injections with either cortisone or viscosupplementation (gel) will be considered. The patient was instructed to notify the office of her preferred injection type in advance, as the gel injections require pre-ordering. Consent Patient was informed and verbally consented to the use of an ambient scribe for clinic note documentation during this visit. Orders: Orders PT Evaluation and Treatment Today M17.12 - Unilateral primary osteoarthritis, left knee Medications: New celecoxib (Celebrex) 200 mg PO BID 28 caps 0RF 14 days Coding Level of Care Code Est Pt Level 3 (45374) Add On Problem Visit Only Diagnoses Patellofemoral arthritis of left knee M17.12
--- OUTSIDE RECORDS SUMMARY | 2025-09-11 15:15 | XMS_ITS | Clinical Summary ---
Author Organization [employer] Address [address] [place] [address] [address] [place] [address] Care Team Providers Care Turntable Engineer Name Role Phone Unavailable Primary Care Provider [...]
--- OUTSIDE RECORDS SUMMARY | 2025-09-11 15:15 | XMS_ITS | Encounter Summary ---
Author Organization [employer] Address [address] [place] [address] Care Team Providers Care Tailercpa Name Role Phone Unavailable Primary Care Provider Unavailabl e Encounter Details Date Type Department Care Team (Latest Contact Info) Description 10/15/2018 Abstract [facility] CONVERSIONS Dental, Provider, DDS Social [...]
== END 2025-09-11 14:25 | disposition home or self-care (01) ==
LOC: HO.HOS 13:34
PROVIDERS: PCP Internal Medicine; Visit Provider Physician Assistant
DX: M17.12 Unilateral primary osteoarthritis, left knee (principal)
CPT/HCPCS: 99214

== ENCOUNTER → 2025-09-11 13:35 | Outpatient (BNV) | payer OTHER, SELFPAY | PROVIDERS: Visit Provider Radiology Diagnostic Radiology | DX: M17.12 Unilateral primary osteoarthritis, left knee (principal); M25.462 Effusion, left knee | CPT/HCPCS: 73562 ==